=== PATIENT | male | born 1950 | race Caucasian/White ===

== ENCOUNTER → 2020-03-24 13:51 | Outpatient (BNVA) | payer MEDICARE, MEDICAID, SELFPAY | PROVIDERS: Family Provider Internal Medicine; PCP Internal Medicine; Visit Provider Surgery | DX: Z11.59 Encounter for screening for other viral diseases (principal); Z12.11 Encounter for screening for malignant neoplasm of colon | CPT/HCPCS: 87635 ==

== ENCOUNTER 2020-04-01 09:32 | Day surgery (SDC) | payer MEDICARE, MEDICAID, SELFPAY ==
[2020-03-31 09:32] VITALS: BMI 31.4
--- NOTE | 2020-04-01 10:08 | P.HP_ITS ---
Same Day Surgery H&P Indication for Procedure/HPI DATE OF PROCEDURE: April 01, 2020 CHIEF COMPLAINT/INDICATIONFOR SURGICAL PROCEDURE: sreening PREOP DIAGNOSIS: screening PLANNED PROCEDRUE: Operation Date: 04/01/20 10:45 Proposed Procedures p Colonoscopy 84402 z12.11(Not Applicable) - Tello Schmitt MD Medications/Allergies* Home Medications Medication Instructions Recorded Confirmed Type cyclobenzaprine 10 mg tablet 10 mg PO TID PRN 03/06/20 03/31/20 History cyclosporine 0.05 % eye drops in a 1 drop OPHTHALMIC (EYE) Q12H PRN 03/06/20 03/31/20 History dropperette gabapentin 300 mg capsule 300 mg PO TID 03/06/20 03/31/20 History hydrochlorothiazide 25 mg tablet 25 mg PO DAILY 03/06/20 03/31/20 History hydrocodone 5 mg-acetaminophen 325 1 tab PO Q8H PRN 03/06/20 03/31/20 History mg tablet ibuprofen 800 mg tablet 800 mg PO TID PRN 03/06/20 03/31/20 History lisinopril 20 mg tablet 20 mg PO DAILY 03/06/20 03/31/20 History melatonin 10 mg capsule 10 mg PO DAILY cap 03/06/20 03/31/20 History multivitamin 2 tab PO BID tab 03/06/20 03/31/20 History psyllium husk 0.52 gram capsule 0.52 gm PO DAILY 03/06/20 03/31/20 History sildenafil 100 mg tablet 25 mg PO DAILY PRN tab 03/06/20 03/31/20 History Allergies/Adverse Reactions Allergy/AdvReac Type Severity Reaction Status Date / Time No Known Allergies Allergy Verified 03/06/20 13:54 Pertinent History/Comorbid Conditions* Medical History (Updated 04/01/20 @ 10:08 by Tello Schmitt MD) Erectile dysfunction HTN (hypertension), benign Pertinent Exam Findings alert, oriented x 3 and regular rate & rhythm Recommendations Surgery/Procedure today Coding Level of Care Code Acute Point Of Care Specialist for Julian Tello
[2020-04-01] MEDS: sodium chloride 0.9% 1,000 ML 30 ML IV (10:24)
[2020-04-01 10:30] VITALS: BP 134/80; PULSE 101; RESP 18; TEMP 36.7; O2SAT 95
--- NOTE | 2020-04-01 10:31 | PC.NURSE ---
PT STATES HE SMOKED POT AT [address] FONTANA NOTIFIED.
--- NOTE | 2020-04-01 10:33 | ANES.PREANE2 ---
Pre-Anesthetic Assessment Pre-Anesthetic Assessment: Height/Weight: Height 1.68 m Weight 88.451 kg Temp Pulse Resp BP Pulse Ox 98.1 F 101 H 18 134/80 95 04/01/20 10:30 04/01/20 10:30 04/01/20 10:30 04/01/20 10:30 04/01/20 10:30 Preop Diagnosis: screening Proposed Procedure: Operation Date: 04/01/20 10:45 Proposed Procedures p Colonoscopy 65725 z12.11(Not Applicable) - Tello Schmitt MD Last intake: Intake Last Liquid Date 03/31/20 Last Liquid Time 21:00 Last Solid Date 03/30/20 Last Solid Time 23:59 Social: Social History: Alcohol and No tobacco Comment: +THC Airway: Submandibular: WNL Cervical ROM: WNL MP: 2 Dentition: False History/ROS: No significant history except as noted and No significant complaints Pulmonary: Pulmonary: None reported CV/HEM: CV/HEM: HTN : : None reported Hepatic: Hepatic: Hepatitis GI: GI: GERD Musc/skel: Musc/skel: OA/DJD Neuropsych: Neuropsych: Anxiety Anesthetic Plan: ASA status: 2 Anesthesia: Anesthesia Evaluation and MAC Risk of > 500 ml blood loss (7ml/kg in children): No Meds/Allergies Current Medications: Current Medications Generic Name Dose Route Start Last Admin Trade Name Freq PRN Reason Stop Dose Admin Sodium Chloride 1,000 mls @ 30 ml s/hr 04/01/20 10:00 04/01/20 10:24 Sodium Chloride 0.9% IV 04/02/20 09:59 30 mls/hr .Q24H WILL Administration PFSH Anesthesia PFSH: Medical History (Updated 04/01/20 @ 10:08 by Tello Schmitt MD) Erectile dysfunction HTN (hypertension), benign Data Anesthesia Cardiac Studies: No Data to Display
[2020-04-01 13:28] VITALS: BP 85/67; PULSE 96; RESP 18; TEMP 36.8; O2SAT 93
[2020-04-01 13:43] VITALS: BP 106/75; PULSE 90; RESP 18; O2SAT 92
--- NOTE | 2020-04-01 14:28 | ANE.PACU2 ---
Inpatient post-anesthesia follow up: Airway intact: Yes Vital signs: Temperature 98.3 F Pulse Rate 90 Respiratory Rate 18 Blood Pressure 106/75 Pulse Oximetry 92 Oxygen Delivery Me thod Room Air Oxygen Flow Rate 2 Fraction of Inspir ed Oxygen Hydration adequate: Yes Nausea and vomiting: No Pain level: 1 Mental status: Baseline
== END 2020-04-01 13:52 | disposition home or self-care (01) ==
PROVIDERS: PCP Internal Medicine; Visit Provider Surgery
PROC: 0DJD8ZZ Inspection of Lower Intestinal Tract, Via Natural or Artificial Opening Endoscopic (ICD-10-PCS; CPT 45378; principal; 2020-04-01 10:45)
DX: Z12.11 Encounter for screening for malignant neoplasm of colon (principal); K57.30 Diverticulosis of large intestine without perforation or abscess without bleeding; I10 Essential (primary) hypertension; K75.9 Inflammatory liver disease, unspecified; M19.90 Unspecified osteoarthritis, unspecified site; Z79.1 Long term (current) use of non-steroidal anti-inflammatories (NSAID); Z79.891 Long term (current) use of opiate analgesic
CPT/HCPCS: 12345; G0121; J2704; J7030

== ENCOUNTER 2020-09-17 06:00 | Outpatient (RCR) | payer MEDICARE, SELFPAY | END 2020-10-13 23:59 | disposition home or self-care (01) | LOC: GPT 06:00 | PROVIDERS: PCP Internal Medicine; Referring Provider Physician Assistant; Visit Provider Physician Assistant | DX: Z47.1 Aftercare following joint replacement surgery (principal); Z96.611 Presence of right artificial shoulder joint | CPT/HCPCS: 81003; 97032; 97110; 97140; 97161; 97530 ==

== ENCOUNTER 2020-10-14 06:00 | Outpatient (RCR) | payer MEDICARE, MEDICAID, SELFPAY | END 2020-11-12 23:59 | disposition home or self-care (01) | LOC: GPT 06:00 | PROVIDERS: PCP Internal Medicine; Referring Provider Physician Assistant; Visit Provider Physician Assistant | DX: Z47.1 Aftercare following joint replacement surgery (principal); Z96.611 Presence of right artificial shoulder joint | CPT/HCPCS: 97032; 97110; 97140; 97164; 97530 ==

== ENCOUNTER 2020-11-13 06:00 | Outpatient (RCR) | payer MEDICARE, MEDICAID, SELFPAY | END 2020-12-13 23:59 | disposition home or self-care (01) | LOC: GPT 06:00 | PROVIDERS: PCP Internal Medicine; Referring Provider Physician Assistant; Visit Provider Physician Assistant | DX: Z47.1 Aftercare following joint replacement surgery (principal); Z96.611 Presence of right artificial shoulder joint | CPT/HCPCS: 97032; 97110 ==

== ENCOUNTER → 2021-03-17 14:58 | Outpatient (BNVA) | payer MEDICARE, MEDICAID, SELFPAY | PROVIDERS: PCP Internal Medicine; Visit Provider Nurse Practitioner Family | DX: R59.1 Generalized enlarged lymph nodes (principal) | CPT/HCPCS: 85025; 86308 ==

== ENCOUNTER → 2021-03-23 15:58 | Outpatient (BNVA) | payer MEDICARE, MEDICAID, SELFPAY | PROVIDERS: PCP Internal Medicine; Visit Provider Nurse Practitioner Family | DX: R59.1 Generalized enlarged lymph nodes (principal) | CPT/HCPCS: 86735 ==

== ENCOUNTER → 2021-04-22 09:16 | Outpatient (BNVA) | payer MEDICARE, MEDICAID, SELFPAY | PROVIDERS: PCP Internal Medicine; Visit Provider Family Medicine | DX: K11.8 Other diseases of salivary glands (principal) | CPT/HCPCS: 85651; 86038; 86235 ==

== ENCOUNTER 2021-05-07 09:24 | Outpatient (CLI) | payer MEDICARE, MEDICAID, SELFPAY ==
--- NOTE | 2021-05-07 09:30 | XR_ITS ---
WS: [id number] HIPS BILATERAL TECHNIQUE: 4 views, AP and lateral CLINICAL INFORMATION: PRIMARY OSTEOARTHRITIS RIGHT HIP AND LEFT HIP COMPARISON: None. FINDINGS: Mild degenerative arthritis left hip with joint space narrowing. Normal visualized left pubic rami. V ascular calcification. No acute fractures. Mild degenerative narrowing right hip. Normal visualized right pubic rami. No acute fractures. XR/XR hip BI 3-4V wo/w pel [id number] IMPRESSION: Mild degenerative arthritis both hips with joint space narrowing. No acute frac tures. Tonnis classification LEFT: grade 1: sclerosis of femoral head and acetabulum o r slight joint space narrowing or slight lippig at joint margins Tonnis classification RIGHT: grade 1: sclerosis of femoral head and acetabulum or slight joint space narrowing or slight lippig at joint margins
== END 2021-05-07 09:25 | disposition home or self-care (01) ==
PROVIDERS: PCP Internal Medicine; Visit Provider Nurse Practitioner Family
DX: M16.11 Unilateral primary osteoarthritis, right hip (principal); M16.12 Unilateral primary osteoarthritis, left hip
CPT/HCPCS: 73522

== ENCOUNTER 2021-05-27 10:53 | Outpatient (CLI) | payer MEDICARE, MEDICAID, SELFPAY ==
--- NOTE | 2021-05-27 11:25 | CT_ITS ---
WS: [id number] CT NECK WITH CONTRAST HISTORY: Mass of both parotid glands TECHNIQUE: Contiguous 5 mm axial images are performed through the neck with intravenous contrast. Sag ittal and coronal reformats are also submitted. All CT scans at [facility] [place] use at least one o f these dose optimization techniques: automated exposure control; mA and/or kV adjustment per patient size (includes targeted exams where dose is matched to clinical indication); or iterative reconstruc tion. CONTRAST: CONTRAST: Omnipaque 300; 95 mL IV. DLP: 1170.91 mGycm COMPARISON: None available. Nasopharynx, oropharynx, hypopharynx and larynx are unremarkable. No soft tissue masses or abnormal e nhancement. Torus tubarius and fossa of Rosenmuller and parapharyngeal fat are normal. No significant lymphadenopathy is identified. Parotid glands are symmetric bilaterally. No masses are identified. Palpable markers are placed over the anterior superficial parotid gland. Parotid glands are prominent but there is no inflammatory nicki nge. The parotid ducts are normal. Washington's ducts are free of stones. Submandibular glands are lisy l. Small bilateral thyroid nodules. The largest on the RIGHT measures 7 mm. Degenerative disc disease and straightening of the normal cervical lordosis. Severe disc space narrow ing at C3-4 and C5-6 and C6-7. Visualized portions of the skull base demonstrate no abnormalities. Orbits and globes are within norm al limits. No soft tissue masses. Visualized paranasal sinuses and mastoid air cells are normal. Dependent changes in the lung apices. Reverse RIGHT shoulder replacement. CT/CT neck w con* [id number] IMPRESSION: 1. Parotid glands are prominent but no masses are identified. No adjacent infl ammatory changes. No adenopathy. 2. Parotid ducts are normal with no stone or obstruction. 3. No adenopathy.
[2021-05-27 11:54] LABS: Blood Urea Nitrogen 22 mg/dL (8-23)
[2021-05-27] MEDS: iohexol 300 mg/mL 100 mL Btl IV (14:49)
== END 2021-05-27 10:54 | disposition home or self-care (01) ==
PROVIDERS: PCP Internal Medicine; Visit Provider Otolaryngology
DX: K11.8 Other diseases of salivary glands (principal)
CPT/HCPCS: 70491; 82565; 84520; Q9967

== ENCOUNTER → 2021-07-03 11:23 | Outpatient (BNVA) | payer MEDICARE, MEDICAID, SELFPAY | PROVIDERS: PCP Internal Medicine; Visit Provider Otolaryngology | DX: Z20.822 Contact with and (suspected) exposure to COVID-19 (principal) | CPT/HCPCS: 87635 ==

== ENCOUNTER → 2021-07-13 08:42 | Outpatient (BNVA) | payer MEDICARE, MEDICAID, SELFPAY | PROVIDERS: PCP Internal Medicine; Visit Provider Nurse Practitioner Family | DX: Z20.822 Contact with and (suspected) exposure to COVID-19 (principal); R09.81 Nasal congestion; H66.92 Otitis media, unspecified, left ear | CPT/HCPCS: 87635 ==

== ENCOUNTER → 2021-07-20 09:10 | Outpatient (BNVA) | payer MEDICARE, MEDICAID, SELFPAY | PROVIDERS: PCP Internal Medicine; Visit Provider Otolaryngology | DX: Z20.822 Contact with and (suspected) exposure to COVID-19 (principal) | CPT/HCPCS: 87635 ==

== ENCOUNTER → 2021-07-27 10:02 | Outpatient (BNVA) | payer MEDICARE, MEDICAID, SELFPAY | PROVIDERS: PCP Internal Medicine; Visit Provider Otolaryngology | DX: Z20.822 Contact with and (suspected) exposure to COVID-19 (principal) | CPT/HCPCS: 87635 ==

== ENCOUNTER 2021-08-13 09:59 | Day surgery (SDC) | payer MEDICARE, MEDICAID, SELFPAY ==
[2021-08-13] VITALS (8 sets, daily range): BP systolic 125–160; BP diastolic 82–100; PULSE 85–99; RESP 14–18; TEMP 36.2–36.4; O2SAT 92–99; BMI 35.5
--- NOTE | 2021-08-13 12:22 | PC.NURSE ---
Rahat started by NANDA Ariza
[2021-08-13] MEDS: sodium chloride 0.9% 1,000 ML 30 ML IV (12:24)
--- NOTE | 2021-08-13 13:05 | ANES.PREANE2 ---
Pre-Anesthetic Assessment Height/Weight: Height 1.68 m Weight 99.79 kg Temp Pulse Resp BP Pulse Ox 97.6 F 85 17 160/98 92 08/13/21 10:23 08/13/21 10:23 08/13/21 10:23 08/13/21 10:23 08/13/21 10:23 Preop Diagnosis: Malignant left external ear skin lesion Operation Date: 08/13/21 11:45 Proposed Procedures p Excision of mal lesion for Left ext ear and repair 32661/C44.209mal terese of left ear(Not Applicable) - Judson Patricio MD Familial anesthetic complications: None Was Beta Ivon taken within 24 hours: N/A Was Clonidine taken within 24 hours: N/A Last intake: Intake Last Liquid Date 08/13/21 Last Liquid Time 00:00 Last Solid Date 08/13/21 Last Solid Time 00:00 Social Tobacco and No alcohol Exam alert, oriented x 3 and regular rate & rhythm Airway Submandibular: within normal limits Cervical ROM: Other (limited) Mallampati: Class III Dentition: false (upper) and partials (lower) Pulmonary Chronic Obstructive Pulmonary Disease CV/HEM Hypertension Hepatic Hepatitis (C) GI Gastroesophageal Reflux Disease Metabolic Morbid Obesity Anesthetic Plan ASA status: 3 Anesthesia: General Medications/Allergies Home Medications Medication Instructions Recorded Confirmed Last Taken Type cyclobenzaprine 10 mg tablet 10 mg PO TID PRN 03/06/20 08/13/21 07/30/21 History cyclosporine 0.05 % eye drops in a 1 drop OPHTHALMIC (EYE) Q12H PRN 03/06/20 08/13/21 Unknown History dropperette (Restasis) gabapentin 300 mg capsule 300 mg PO TID 03/06/20 08/13/21 08/12/21 History hydrocodone 5 mg-acetaminophen 325 1 tab PO Q8H PRN 03/06/20 08/13/21 08/11/21 History mg tablet ibuprofen 800 mg tablet 800 mg PO TID PRN 03/06/20 08/13/21 08/12/21 History multivitamin 2 tab PO BID tab 03/06/20 08/13/21 08/12/21 History psyllium husk 0.52 gram capsule 0.52 gm PO DAILY 03/06/20 08/13/21 08/11/21 History (Fiber (psyllium husk)) tadalafil 20 mg tablet 20 mg PO DAILY PRN #20 tab 09/03/20 08/13/21 08/11/21 Rx medical marijuana INHALATION 03/17/21 07/20/21 08/12/21 History lisinopril 20 mg tablet See Rx Instructions .ROUTE 06/23/21 08/13/21 08/12/21 Rx .COMPLEX #90 tab tamsulosin 0.4 mg capsule 0.4 mg PO DAILY 07/15/21 08/13/21 08/12/21 History Allergies Allergy/AdvReac Type Severity Reaction Status Date / Time No Known Allergies Allergy Verified 07/20/21 13:16 Current Medications Generic Name Dose Route Start Last Admin Trade Name Freq PRN Reason Stop Dose Admin Sodium Chloride 1,000 mls @ 30 mls/hr 08/13/21 10:30 08/13/21 12:24 Sodium Chloride 0.9% IV 08/14/21 10:29 30 mls/hr .Q24H WILL Administration PFSH Anesthesia Medical History Arthritis Erectile dysfunction due to diseases classified elsewhere HTN (hypertension), benign Urinary frequency Surgical History S/P appendectomy S/P tonsillectomy Status post colonoscopy (04/01/20) Family History Mother Cancer Breast Social History Smoking and tobacco status: light tobacco smoker Alcohol intake: current Alcohol intake frequency: few times a week Adopted: No Caregiver/support person: No Lives independently: Yes Marital status: Legally Current occupational status: unemployed Data Anesthesia Cardiac Studies: No Data to Display
--- NOTE | 2021-08-13 13:12 | W.PM.OPSUD ---
Surgery/Procedure H&P Update DATE OF PROCEDURE: August 13, 2021 DATE H&P PERFORMED: 07/20/21 H&P UPDATE INFORMATION: I have reviewed H&P completed within last 30 days, I have examined patient prior to procedure and No changes to prior documentation PREOP DIAGNOSIS: Malignant left external ear skin lesion PRIMARY INDICATION FOR PROCEDURE: Malignant lesion left external ear at the helical rim midportion of the ear. PLANNED PROCEDURE: Operation Date: 08/13/21 11:45 Proposed Procedures p Excision of mal lesion for Left ext ear and repair 94170/C44.209mal terese of left ear(Not Applicable) - Judson Patricio MD
[2021-08-13] MEDS: neomycin-poly-bacitracin oint 28 gm 1 APPLIC TOPICAL (13:59)
--- NOTE | 2021-08-13 14:13 | P.OP_ITS ---
Operative Report Date of procedure: August 13, 2021 Pre-op diagnosis: Preop Diagnosis Malignant left external ear skin lesion Post-op diagnosis: Basal cell carcinoma with margins clear Post-op findings: Wedge excision accomplished wounds and complex closure done. Procedure done: Wedge excision of left external ear helical rim basal cell carcinoma with complex repair Implants: No implants Specimens removed/disposition: Specimen was wedge excision of left helical rim malignancy. Pathology: Wedge excision left helical rim with lesion. Surgeon: Judson Patricio MD Anesthesia: General and Local Estimated blood loss: 20 mL Complications: No complications encountered Findings: Patient had a 1 cm by 8 mm raised exophytic lesion on left external helical rim. Brief History: 71-year-old male patient with a left external helical rim malignancy suspicious for basal cell carcinoma. He is being brought to the operating room at this time to undergo excision of this lesion with repair based on method of excision. The procedure its risks and complications were explained in detail. Risks included bleeding infection numbness scarring swelling bruising recurrence cosmetic change need for additional treatment and anesthetic risks. Informed consent was obtained and witnessed. Procedure: Description of procedure: The patient was placed on the operating table in the supine position. General LMA anesthesia was obtained. The patient was positioned with the left ear exposed. Patient received Ancef IV for prophylaxis. The area around the lesion was wiped with alcohol and allowed to dry. Then a total of 6.8 mL of 2% Xylocaine with 1-100,000 epinephrine was utilized to infiltrate in all directions superior inferior anterior and posterior around the lesion. Then the patient was prepped and draped in usual fashion. A timeout was accomplished identifying the patient date of plan procedure allergies fire risk and medications given. With all in agreement the procedure continued. A marking pen was used to outline a wedge excision pattern which was felt to leave the least cosmetic defect for this patient postoperatively. This was done excising a wedge that was 1.5 cm superior to inferior with the apex extending towards the antihelix. The incision was created through and through with a 15 blade. The superior aspect on the helical rim was marked with suture and sent for diagnosis and margins. While that was pending hemostasis was obtained with needle tip Bovie. Excess cartilage was excised to allow for direct closure of the wedge excision. Then with expec tation that the margins would be clear, the wound was closed with a running 5-0 nylon suture. Then pressure was applied for several minutes. Pathology returned as basal cell carcinoma with margins clear. The area was then cleansed. There was no sign of bleeding. Neosporin ointment was applied followed by a large sterile Band-Aid. Drapes were removed and the patient was returned to anesthesia for wake-up and transported to recovery. The patient tolerated the procedure well had an estimated blood loss of 20 mL and arrived in recovery in stable condition.
--- NOTE | 2021-08-13 15:19 | ANE.PACU2 ---
Inpatient post-anesthesia follow up: Airway intact: Yes Vital signs: Temperature 97.5 F Pulse Rate 96 Respiratory Rate 18 Blood Pressure 140/94 Pulse Oximetry 94 Oxygen Delivery Me thod Room Air Oxygen Flow Rate 6 Fraction of Inspir ed Oxygen Hydration adequate: Yes Nausea and vomiting: No Pain level: 1 Mental status: Baseline
== END 2021-08-13 15:27 | disposition home or self-care (01) ==
PROVIDERS: PCP Internal Medicine; Visit Provider Otolaryngology
PROC: (CPT 11641; principal; 2021-08-13 11:45)
DX: C44.209 Unspecified malignant neoplasm of skin of left ear and external auricular canal (principal); J44.9 Chronic obstructive pulmonary disease, unspecified; E66.01 Morbid (severe) obesity due to excess calories; Z68.35 Body mass index [BMI] 35.0-35.9, adult; M19.90 Unspecified osteoarthritis, unspecified site; I10 Essential (primary) hypertension; F17.210 Nicotine dependence, cigarettes, uncomplicated
CPT/HCPCS: 11641; 88304; 88309; 88331; J0690; J1100; J2370; J2405; J2704; J3010; J7030

== ENCOUNTER → 2021-12-21 11:22 | Outpatient (BNVA) | payer MEDICARE, MEDICAID, SELFPAY | PROVIDERS: PCP Internal Medicine; Visit Provider Nurse Practitioner Family | DX: R50.9 Fever, unspecified (principal) | CPT/HCPCS: 87426 ==

== ENCOUNTER → 2021-12-24 07:56 | Outpatient (BNVA) | payer MEDICARE, MEDICAID, SELFPAY | PROVIDERS: PCP Internal Medicine; Visit Provider Urology | DX: N40.1 Benign prostatic hyperplasia with lower urinary tract symptoms (principal); N52.1 Erectile dysfunction due to diseases classified elsewhere | CPT/HCPCS: 51798; 99213 ==

== ENCOUNTER → 2022-02-15 09:03 | Outpatient (BNVA) | payer MEDICARE, MEDICAID, SELFPAY | PROVIDERS: PCP Internal Medicine; Visit Provider Nurse Practitioner Family | DX: I10 Essential (primary) hypertension (principal) | CPT/HCPCS: 80053; 80061; 84443 ==

== ENCOUNTER → 2022-07-05 14:56 | Outpatient (BNVA) | payer MEDICARE, MEDICAID, SELFPAY | PROVIDERS: PCP Nurse Practitioner Family; Visit Provider Nurse Practitioner Family | DX: R06.2 Wheezing (principal); R05.9 Cough, unspecified | CPT/HCPCS: 71046 ==

== ENCOUNTER → 2022-07-13 14:38 | Outpatient (BNVA) | payer MEDICARE, MEDICAID, SELFPAY | PROVIDERS: PCP Nurse Practitioner Family; Visit Provider Podiatrist Foot & Ankle Surgery | DX: G57.62 Lesion of plantar nerve, left lower limb (principal) | CPT/HCPCS: 64455; 73630; 99203 ==

== ENCOUNTER → 2022-08-31 14:19 | Outpatient (BNVA) | payer MEDICARE, MEDICAID, SELFPAY | PROVIDERS: PCP Nurse Practitioner Family; Visit Provider Podiatrist Foot & Ankle Surgery | DX: G57.62 Lesion of plantar nerve, left lower limb (principal) | CPT/HCPCS: 99213 ==

== ENCOUNTER → 2023-05-25 13:17 | Outpatient (BNVA) | payer MEDICARE, MEDICAID, SELFPAY | PROVIDERS: PCP Nurse Practitioner Family; Visit Provider Nurse Practitioner Family | DX: R14.0 Abdominal distension (gaseous) (principal); N40.0 Benign prostatic hyperplasia without lower urinary tract symptoms | CPT/HCPCS: 74018 ==

== ENCOUNTER 2023-05-25 20:02 | Inpatient (IN) | payer MEDICARE, MEDICAID, SELFPAY ==
[2023-05-25 20:05] VITALS: BP 185/152; PULSE 144; RESP 18; TEMP 36.5; O2SAT 92; BMI 35.2
--- NOTE | 2023-05-25 20:23 | XRR_ITS ---
PROCEDURE INFORMATION: Exam: XR Chest Exam date and time: 05/25/2023 9:19 PM Age: 73 years old Clinical indication: Other: Palpitations TECHNIQUE: Imaging protocol: Radiologic exam of the chest. Views: 1 view. COMPARISON: CR XR chest 2V* [id number] 07/05/2022 3:09 PM FINDINGS: Lungs: Stable left calcified hilar nodes and/or mediastinal nodes and/or lung nodules consistent with old granulomatous disease. Pleural spaces: Unremarkable. No pleural effusion. No pneumothorax. Heart/Mediastinum: Borderline to mild cardiomegaly. Bones/joints: Stable total right shoulder replacement. Soft tissues: Examination is limited secondary to body habitus. XR/XR chest 1V portable [id number] IMPRESSION: Borderline to mild cardiomegaly.
--- NOTE | 2023-05-25 20:24 | ECG_ITS ---
[facility] Test Date: 2023-05-25 Pat Name: Bernard Cavanaugh Department: Room: EDIP Gender: Male Frame Trimmer: : 1950 Requested By: Jeramie Dorman Order Number: [id number] Nathalie MD: Jl Jacobs M.D. Measurements Intervals [place] Rate: 128 P: 0 [place]: 0 QRS: -17 QRSD: 88 T: 95 QT: 305 QTc: 445 Interpretive Statements ATRIAL FIBRILLATION WITH RAPID VENTRICULAR RESPONSE WITH ABERRANT CONDUCTION OR VENTRICULAR PREMATURE COMPLEXES MINIMAL VOLTAGE CRITERIA FOR LVH, CONSIDER NORMAL VARIANT [MEETS CRITERIA IN ONE OF: R(aVL), S(V1), R(V5), R(V5/V6)+S(V1)] NONSPECIFIC T-WAVE ABNORMALITY No previous ECG available for comparison Electronically Signed On 05-26-2023 21:47:10 INSTRUMENT REPAIRER by Jl Jacobs M.D. [email or web address]
[2023-05-25 20:42] LABS: Basophils % 0.4 %; Eosinophils # 0.1 10^3/uL (0.0-0.8); Hematocrit 47.2 % (37-53); Lymphocytes # 1.1 10^3/uL (0.8-4.8); Lymphocytes % 11.2 %; Mean Corpuscular HGB Conc 32.2 g/dL (30-55); Mean Corpuscular Hemoglobin 27.5 pg (27-33); Mean Corpuscular Volume 85.4 fl (82-101); Mean Platelet Volume 9.9 fL (7.4-10.4); Monocytes # 0.9 10^3/uL (0.2-0.9); Monocytes % 8.8 %; Neutrophils # 7.82 10^3/uL (1.8-7.7); Neutrophils % 78.4 %; Nucleated Red Blood Cells % 0 %; Platelet Count 264 10^3/cmm (157-399); Red Blood Count 5.53 10^6/uL (3.85-5.65); Red Cell Distribution Width 14.6 % (12.1-15.1); White Blood Count 9.98 10^3/uL (3.29-11.43)
[2023-05-25 20:51] LABS: INR 1.22 (0.8-1.2)
[2023-05-25 20:57] LABS: Troponin(5th) Baseline 39 ng/L (0-15)
[2023-05-25] MEDS: dilTIAZem 5 mg/mL SDV 5 mL 20 MG IVP (20:58)
[2023-05-25 21:00] VITALS: BP 156/128; PULSE 119; RESP 20; O2SAT 90
[2023-05-25 21:07] LABS: Alanine Aminotransferase 16 U/L (0-41); Albumin Level 4.2 g/dL (3.5-5.2); Alkaline Phosphatase 97 U/L (40-130); Anion Gap 16.6 (5-19); Aspartate Amino Transferase 22 U/L (0-40); Blood Urea Nitrogen 20 mg/dL (8-23); Calcium 9.4 mg/dL (8.5-10.5); Carbon Dioxide 23 mmol/L (22-29); Chloride 105 mmol/L (98-107); Globulin 2.9 g/dL (1.3-4.6); Glucose 90 mg/dL (65-115); NT Pro B Type Natriuretic Pept 3144 pg/mL (0-125); Osmolality Calculated 292 mOsm/kg (285-295); Potassium 4.6 mmol/L (3.5-5.1); Sodium 140 mmol/L (136-145); Total Bilirubin 0.8 mg/dL (0.15-1.2); Total Protein 7.1 g/dL (6.6-8.7)
[2023-05-25 21:19] LABS: Partial Thromboplastin Time 26.5 SECONDS (23.9-36.7)
--- NOTE | 2023-05-25 22:24 | ECG_ITS ---
[facility] Test Date: 2023-05-25 Pat Name: Bernard Cavanaugh Department: Room: Gender: Male Direct Marketing Specialist: : 1950 Requested By: Jeramie Dorman Order Number: [id number] Nathalie MD: Jl Jacobs M.D. Measurements Intervals [place] Rate: 110 P: 0 [place]: 0 QRS: -13 QRSD: 90 T: 74 QT: 359 QTc: 487 Interpretive Statements ATRIAL FIBRILLATION WITH RAPID VENTRICULAR RESPONSE NONSPECIFIC ST & T-WAVE ABNORMALITY ABNORMAL RHYTHM ECG No previous ECG available for comparison Electronically Signed On 05-26-2023 21:50:44 MUSSEL OPENER by Jl Jacobs M.D. [email or web address]
--- NOTE | 2023-05-25 22:26 | ED_ITS ---
HPI - SOB/Dyspnea 2 General: Chief Complaint: Shortness of Breath/Dyspnea Stated Complaint: SOB Time Seen by Provider: 05/25/23 20:23 History of Present Illness: HPI Narrative: 73-year-old male presents emergency depa rtment via EMS personnel for complaints of feeling like he is having increased shortness of breath and having a rapid beating heart. He states approximately 2 months ago he was told he had atrial fibrillation. He states that he became more short of breath today he states he initially started feeling like his abdomen was bloated and he felt it he initially thought that that was the cause of his shortness of breath. He denies chest pain at present. But he does state that he is significantly winded with any exertion. Associated symptoms: Reports palpitations Review of Systems 2 General: Reports: 10 or more systems reviewed and unremarkable except in HPI and below Card: Reports: palpitations and irregular heart rhythm Resp: Reports: dyspnea and non-productive cough PFSH ED 2 PFSH: Medical History Urinary hesitancy Urinary frequency Erectile dysfunction due to diseases classified elsewhere Arthritis HTN (hypertension), benign Surgical History S/P tonsillectomy S/P appendectomy Status post colonoscopy (04/01/20) Family History Mother , at age 52 Cancer Breast Father , at age 82 No problems noted. Social History Smoking and tobacco/nicotine status: former use of tobacco/nicotine Alcohol intake: current Alcohol intake frequency: few times a week Substance/Drug Use: current Substance/Drug use frequency: few times a week Adopted: No Caregiver/support person: No Lives independently: Yes Marital status: Current occupational status: employed Current occupation: [employer] Physical Exam 2 Narrative: EXAM NARRATIVE: Constitutional: the patient appears well nourished and with normal development. Vital signs reviewed as documented. HENMT: Normocephalic, atraumatic. Extermal ears with normal appearance without drainage. Nose without drainage, normal appearance. Mucus membranes moist. Neck is supple, No jugular venous distension, trachea is midline, no appreciable carotid bruits. No lymphadenopathy. No meningeal signs. Flexion, extension and lateral rotation is without pain. Eyes: Pupils are equal, round, reactive to light and accommodation. No scleral icterus. Extra-ocular movement are intact. Thorax is symmetrical and with equal rise and fall with respirations. Resp: Lungs are clear to auscultation. No wheezes, rales, crackles or ronchi at present. Cardio: Irregularly irregular with rapid ventricular response. Positive S1, S2. No appreciable murmurs, rubs or gallops. GI: Abdominal exam reveals normal bowel sounds to all quadrants. No organomegaly. No obvious palpable masses noted. No hepatomegally appreciated. Soft, nontender to palpation. Extremity: Extremities are non-edematous and both femoral and pedal pulses are 2+ and equal bilaterally. Moves all extremities well, sensation in all extremities. Neuro: Alert and oriented x4, person, place, time and situation. Cranial nerves II through XII are grossly intact, there is no focal neurological deficits that I can appreciate at present. Motor strength in the upper and lower extremities are equal and bilateral 5/5. Psych: Cooperative, calm, normal thought process, appropriate judgment. Skin: No lesions, rashes. No gross abnormalities noted. Back: Symmetrical, no obvious deformity, No CVA tenderness Course 2 Vital Signs: Vital signs: Vital Signs Temperature 97.7 F 05/25/23 20:05 Pulse Rate 108 H 05/25/23 22:36 Respiratory Rate 20 H 05/25/23 21:00 Blood Pressure 156/128 05/25/23 21:00 Pulse Oximetry 92 05/25/23 22:36 Oxygen Delivery Me thod Nasal Cannula 05/25/23 22:36 Oxygen Flow Rate 2 05/25/23 21:00 MDM - SOB/Dyspnea Medical Decision Making Physical exam completed and documented, I will obtain serial cardiac enzymes, serial twelve-lead EKGs, chest x-ray, CBC, CMP, urinalysis, B-type natriuretic peptide, PT/PTT/INR, and a chest x-ray. I will review any pervious and pertinent medical records for assist in obtaining beneficial medical information to improved the care and treatment of the patient. I will reevaluate and consider hospitalist consultation and cardiology consultation. Medical Records I reviewed the patient's medical records. Lab Data I reviewed the patient's lab results. 05/25/23 20:30 05/25/23 20:30 Labs/Radiology: Radiology Impressions Chest X-Ray 05/25/23 20:23 IMPRESSION: Borderline to mild cardiomegaly. Laboratory Results WBC 9.98 10^3/uL (3.29-11.43) 05/25/23 20:30 RBC 5.53 10^6/uL (3.85-5.65) 05/25/23 20:30 Hgb 15.20 g/dL (11.27-16.99) 05/25/23 20:30 Hct 47.2 % (37-53) 05/25/23 20:30 MCV 85.4 fl (82-101) 05/25/23 20: MCH 27.5 pg (27-33) 05/25/23 20: MCHC 32.2 g/dL (30-55) 05/25/23 20: RDW 14.6 % (12.1-15.1) 05/25/23 20:30 Plt Count 264 10^3/cmm (157-399) 05/25/23 20:30 MPV 9.9 fL (7.4-10.4) 05/25/23 20:30 Neut % (Auto) 78.4 % 05/25/23 20: Lymph % (Auto) 11.2 % 05/25/23 20: Schuyler % (Auto) 8.8 % 05/25/23 20:30 Eos % (Auto) 1.0 % 05/25/23 20: Baso % (Auto) 0.4 % 05/25/23: Neut # (Auto) 7.82 10^3/uL (1.8-7.7) H 05/25/23 20:30 Lymph # (Auto) 1.1 10^3/uL (0.8-4.8) 05/25/23 20:30 Schuyler # (Auto) 0.9 10^3/uL (0.2-0.9) 05/25/23 20:30 Eos # (Auto) 0.1 10^3/uL (0.0-0.8) 05/25/23 20:30 Baso # (Auto) 0.0 10^3/uL (0.0-0.1) 05/25/23 20:30 Nucleated RBC % (auto) 0 % 05/25/23 20:30 Nucleated RBCs # 0.0 /100WBC 05/25/23 20:30 PT 15.80 SECONDS (12.1-14.9) H 05/25/23 20:30 INR 1.22 (0.8-1.2) H 05/25/23 20:30 APTT 26.5 SECONDS (23.9-36.7) 05/25/23 20:30 Sodium 140 mmol/L (136-145) 05/25/23 20:30 Potassium 4.6 mmol/L (3.5-5.1) 05/25/23 20:30 Chloride 105 mmol/L (98-107) 05/25/23 20:30 Carbon Dioxide 23 mmol/L (22-29) 05/25/23 20:30 Anion Gap 16.6 (5-19) 05/25/23 20:30 BUN 20 mg/dL (8-23) 05/25/23 20:30 Creatinine 0.9 mg/dL (0.7-1.2) 05/25/23 20:30 GFR Calculation Not Reportable 05/25/23 20:30 Glucose 90 mg/dL (65-115) 05/25/23 20:30 Calculated Osmolality 292 mOsm/kg (285-295) 05/25/23 20:30 Calcium 9.4 mg/dL (8.5-10.5) 05/25/23 20:30 Total Bilirubin 0.8 mg/dL (0.15-1.2) 05/25/23 20:30 AST 22 U/L (0-40) 05/25/23 20:30 ALT 16 U/L (0-41) 05/25/23 20:30 Alkaline Phosphatase 97 U/L (40-130) 05/25/23 20:30 Troponin T Baseline 39 ng/L (0-15) H 05/25/23 20:30 Troponin T 120 Minute 30.29 ng/L (0-15) H 05/25/23 22:18 Delta Troponin T -8.71 ABS# (0-10) L 05/25/23 22:18 NT-Pro-B Natriuret Pep 3144 pg/mL (0-125) H 05/25/23 20:30 Total Protein 7.1 g/dL (6.6-8.7) 05/25/23 20:30 Albumin 4.2 g/dL (3.5-5.2) 05/25/23 20:30 Globulin 2.9 g/dL (1.3-4.6) 05/25/23 20:30 All radiology interpretation(s) finalized by discharge EKG Data EKG 1: Interpretation: Twelve-lead EKG obtained at 2023 reviewed at 2025 demonstrates atrial fibrillation with a rapid ventricular response with a ventricular rate of 128 bpm, QRS duration 88, QT 305, QTc 381, there is significant motion artifact noted. At present there is no ST elevation or depression to demonstrate acute ischemia or infarction. EKG 2: Interpretation: Twelve-lead EKG obtained at 2304 and reviewed at 2304 demonstrates atrial fibrillation with improved ventricular rate of 110 bpm, QRS duration 90, QT 359, QTc 424. At present there is no ST elevation or depression to demonstrate acute ischemia or infarction. Critical Care Time 2 Critical Care Time: Critical Care Time: Yes Total Critical Care Time: 55 Attestation: The patients was emergently evaluated as this patient's presentation and case had a high probability of a clinically significant, sudden, or life threatening deterioration of this patient's initial critical presentation or condition which required my full and direct attention, intervention and personal management. Discharge Plan Discharge Patient Disposition: Admitted As Inpatient Clinical Impression: Atrial fibrillation with rapid ventricular response, Acute dyspnea Condition: Stable Coding Level of Care Code ED [place] Repairer for Julian Tello
[2023-05-25 22:36] VITALS: PULSE 108; O2SAT 92
[2023-05-25 22:39] LABS: Troponin 5 2HR 30.29 ng/L (0-15)
[2023-05-25 22:40] LABS: Troponin 5 2HR Delta -8.71 ABS# (0-10)
[2023-05-25 23:21] VITALS: BP 180/115; PULSE 95; RESP 27; O2SAT 3
[2023-05-25 23:50] VITALS: PULSE 109; RESP 28
[2023-05-26] VITALS (88 sets, daily range): BP systolic 123–173; BP diastolic 74–132; PULSE 77–130; RESP 14–46; TEMP 36.9; O2SAT 21–95; BMI 33.9
[2023-05-26] MEDS: dilTIAZem 100 MG in sodium chloride 0.9% (add-van) 100 ML IV (00:12)
[2023-05-26] MEDS: acetaminophen 325 mg Tablet 650 MG PO ×2 (01:20→19:44)
--- NOTE | 2023-05-26 01:24 | PC.NURSE ---
PATIENT STATES THAT HE DRINKS APPROXIMATELY 1 PINT OF WHISKEY EVERY NIGHT TO HELP HIM SLEEP. DR MOSLEY NOTIFIED.
--- NOTE | 2023-05-26 02:24 | ECG_ITS ---
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 [email or web address] Therapeuticsmarion general [email or web address] health [id number] f
--- NOTE | 2023-05-26 02:41 | USCV_ITS ---
Mao Bernard Age: 73 Gender: M : 1950 Exam Date: 05/26/2023 04:04 Ordering Phys: Kelly Scmhitt MD Technologist: GURPREET [place] [facility] [place]: [place]B, new onset Atrial Fibrillation. No history of cardiac intervention per patient. BP: 158 / 122 HR: 99 Rhythm: Atrial fibrillation Technical Quality: Adequate MEASUREMENTS (Male / Female) Normal Values 2D ECHO LV Diastolic Diameter PLAX 3.8 cm 4.2 - 5.9 / 3.9 - 5.3 cm LV Systolic Diameter PLAX 3.1 cm IVS Diastolic Thickness 1.6 cm 0.6 - 1.0 / 0.6 - 0.9 cm IVS Systolic Thickness 1.7 cm LVPW Diastolic Thickness 1.7 cm 0.6 - 1.0 / 0.6 - 0.9 cm LVPW Systolic Thickness 1.3 cm LVOT Diameter 2.3 cm LV Ejection Fraction 2D Teich 29.7 % LV Ejection Fraction MOD 2C 30.7 % LV Ejection Fraction 2C AL 30.9 % LA Diameter 3.3 cm LA Width 4.1 cm LA Height 6.8 cm RA Width 4.1 cm RA Height 6.1 cm Aorta at Sinotubular Diameter 3.5 cm IVC Diameter 2.6 cm M-MODE Aortic Annulus Diameter 3.4 cm LA Ao Ratio MM 1.0 MV E Point Septal Separation 0.5 cm DOPPLER AV Peak Velocity 100.0 cm/s LVOT Peak Velocity 112.0 cm/s AV Area Cont Eq vti 4.1 cm squared AV Area Cont Eq pk 4.7 cm squared MV Peak Velocity 107.0 cm/s MV Area PHT 3.9 cm squared MV E' Velocity 56.0 cm/s Mitral E to MV E' Ratio 11.7 Mitral E to LV E' Lateral Ratio 9.1 Mitral E to LV E' Septal Ratio 16.5 TR Peak Velocity 315.0 cm/s TR Peak Gradient 39.7 mmHg TV Peak E Velocity 67.0 cm/s Right Atrial Pressure 15.0 mmHg Pulmonary Artery Systolic Pressu 54.7 mmHg PV Peak Velocity 75.0 cm/s RV Acceleration Time 0.1 s RV Ejection Time 0.3 s RV AcT/ET 0.2 FINDINGS Left Ventricle Mild concentric left-ventricular hypertrophy. LV ejection fraction around 45% (visual). Diffuse hypokinesia of the septum and anteroseptal segments.Grade I/IV diastolic dysfunction (abnormal relaxation filling pattern), normal to mildly elevated filling pressures. Right Ventricle The right ventricle is normal in size and function. Right Atrium The right atrium is normal in size. Left Atrium Mildly increased left atrial size. Mitral Valve Mild-moderate mitral valve regurgitation. Aortic Valve Trace aortic valve regurgitation. Tricuspid Valve Mild tricuspid valve regurgitation. Estimated pulmonary artery peak systolic pressure 55 mmHg Pulmonic Valve Structurally normal pulmonic valve without significant stenosis. There is no pulmonic regurgitation. Pericardium No pericardial effusion. Aorta Normal ascending aorta dimension. IVC Dilated IVC with decreased respiratory variation. CONCLUSIONS Mild concentric left-ventricular hypertrophy. LV ejection fraction around 45% (visual). Diffuse hypokinesia of the septum and anteroseptal segments. Grade I/IV diastolic dysfunction (abnormal relaxation filling pattern), normal to mildly elevated filling pressures. Mildly increased left atrial size. Mild-moderate mitral valve regurgitation. Mild tricuspid valve regurgitation. Moderate pulmonary hypertension with estimated pulmonary artery peak systolic pressure of 55 mmHg Dilated IVC with decreased respiratory variation. There is no pericardial effusion. No similar previous studies are available for comparison Dr Jl Jacobs MD [facility] (Electronically Signed) Final Date: 26 May 2023 09:05 S
--- NOTE | 2023-05-26 02:46 | CTR_ITS ---
PROCEDURE INFORMATION: Exam: CT Abdomen And Pelvis Without Contrast Exam date and time: 05/26/2023 3:04 AM Age: 73 years old Clinical indication: Constipation; Additional info: Abdominal pain, abdominal pain, constipation x 4 days, unable to pass TECHNIQUE: Imaging protocol: Computed tomography of the abdomen and pelvis without contrast. Radiation optimization: All CT scans at this facility use at least one of these dose optimization techniques: automated exposure control; mA and/or kV adjustment per patient size (includes targeted exams where dose is matched to clinical indication); or iterative reconstruction. COMPARISON: CR XR abdomen 1V* [id number] 05/25/2023 1:35 PM RADIATION DOSE METRICS: Total DLP (mGy-cm): 971.25 FINDINGS: Lungs: Mild COPD. A few minute calcified lung nodules are seen incidentally. Pjdbz-abjdfci-urvz-left areas of bibasilar atelectasis. Possible right basilar infiltrate. Pleural spaces: Very small right pleural effusion. Liver: Unremarkable. No discrete mass. Gallbladder and bile ducts: No calcified gallstones or biliary dilation identified. Pancreas: Unremarkable with no suspicious mass. No ductal dilation. Spleen: The spleen is not enlarged. No suspicious mass is noted. Adrenal glands: Normal. No mass. Kidneys and ureters: Small right renal cystic lesion measures 2 cm. Other minute cysts likely. No hydronephrosis. Small left upper renal possible dense lesion measures 1.3 cm. Advise ultrasound correlation. Minimal left nephrolithiasis. Stomach and bowel: Moderate sigmoid diverticulosis. No small bowel obstruction, abscess or free air. Appendix: No evidence of appendicitis. Intraperitoneal space: Minimal ascites. No abscess or free air. Vasculature: Advanced diffuse vascular calcification noted. Lymph nodes: No enlarged lymph nodes. Urinary bladder: There is moderate bladder distention. Reproductive: Very large prostate. Bones/joints: [id number] spine DJD. Soft tissues: No acute or suspicious finding noted. Small fat umbilical hernia. CT/CT abdomen pelvis wo con [id number] IMPRESSION: 1. No bowel obstruction or evidence of constipation. 2. Small right effusion with right lung base atelectasis, scarring, or developing airspace disease. 3. Mild diffuse 3rd spacing of fluid. 4. Large prostate with distended bladder. 5. Full details and other chronic/incidental above. Very small left renal probable hemorrhagic cyst. Consider outpatient ultrasound. COMMENTS: Consistent with the [place] [employer]'s Incidental Findings Committee white paper (J Am Cortes Radiol 2018): Any incidental renal lesion less than 1 cm or classified as too small to characterize, or any incidental cystic renal lesion characterized as simple-appearing, is likely benign. No follow-up imaging is recommended for these lesions per consensus recommendations based on imaging criteria.
--- NOTE | 2023-05-26 02:47 | PM.HP ---
Providers/Chief Complaint Admitting Physician: Kelly Schmitt MD Primary Care Provider: Cynthia Hartmann NP Chief Complaint: SOB History of Present Illness Bernard Cavanaugh is a 73 year old male with a past medical history of hypertension, COPD not typically on home oxygen, who presented to the emergency room today sent in by his PCP. Patient visited with his primary care provider earlier today due to 4 days of abdominal pain constipation and inability to pass flatus. He thought he had constipation and was having panic attack as a result of his abdominal discomfort. He stated that it was hard for him to breathe because of abdominal distention. He had palpitations. At his PCPs office he was found to have A-fib with RVR with a heart rate of 142 and was directed to come into the emergency room. Here he was found to be in A-fib RVR heart rate of 144. Patient states he is familiar with the term A-fib however unable to tell me if he was ever formally diagnosed with the same. He received Cardizem push 20 mg IV and has been started on a Cardizem infusion, currently at 10 mg/h. Heart rate is better controlled with these interventions. He is currently on 4 L/min supplemental O2, does not typically wear oxygen. Reports drinking alcohol daily, 1 pint of whiskey, last drink was yesterday. No history of alcohol withdrawal seizures. Review of Systems General: Reports: 10 or more systems reviewed and unremarkable except in HPI and below Const: Denies: fever(s), chills or body aches Eyes: Denies: change in vision, blurry vision or photophobia ENMT: Reports: hoarseness; Denies: throat pain, enlarged tonsils, odynophagia or nasal congestion Card: Denies: chest pain, palpitations, irregular heart rhythm, edema, swelling of feet/ankles, lightheadedness, pre-syncope, dyspnea on exertion or orthopnea Resp: Denies: dyspnea, productive cough, non-productive cough, wheezing, stridor, pain on inspiration, change in phlegm color, hemoptysis or chest congestion GI: Denies: abdominal pain, nausea, vomiting, hematemesis, coffee ground emesis, dysphagia, heartburn, diarrhea, constipation, GI cramping, change in stool character, hematochezia or melena : Denies: flank pain, dysuria, urinary frequency, urinary urgency, urinary hesitancy or hematuria Musc: Denies: neck pain, back pain, extremity pain, joint swelling, joint warmth or deformity Neuro: Denies: headache(s), numbness in extremities, weakness in extremities, sensory changes, difficulty walking, frequent falls, dizziness, vertigo, behavioral changes, Slurred speech present or seizure-like activity Psych: Denies: anxiety, depression, suicidal ideation or homicidal ideation Endo: Denies: polyuria, polydipsia, tired all the time, cold intolerance or hot flashes Zheng/Lymph: Denies: easy bruising or easy bleeding Medications/Allergies Home Medications Medication Instructions Recorded Confirmed Last Taken Type albuterol sulfate 90 mcg/actuation See Rx Instructions .Route 05/11/22 09/16/22 Unknown Rx aerosol inhaler .COMPLEX #8.5 grams gabapentin 400 mg capsule 400 mg PO TID #300 caps 06/28/22 05/25/23 Unknown Rx budesonide 160 mcg-glycopyr 9 2 inh inhalation BID #10.7 grams 07/05/22 05/25/23 Unknown Rx mcg-formot 4.8 mcg/actuation HFA inhaler (Breztri Aerosphere) lisinopril 20 mg tablet See Rx Instructions .Route 04/27/23 05/25/23 Unknown Rx .COMPLEX #90 tabs ibuprofen 800 mg tablet See Rx Instructions .Route 05/06/23 05/25/23 Unknown Rx .COMPLEX #60 tabs tamsulosin 0.4 mg capsule See Rx Instructions .Route 05/11/23 05/25/23 Unknown Rx .COMPLEX #90 caps Allergies Allergy/AdvReac Type Severity Reaction Status Date / Time No Known Allergies Allergy Verified 05/25/23 13:14 PFSH Acute PFSH: Medical History Urinary hesitancy Urinary frequency Erectile dysfunction due to diseases classified elsewhere Arthritis HTN (hypertension), benign Surgical History S/P tonsillectomy S/P appendectomy Status post colonoscopy (04/01/20) Family History Mother , at age 52 Cancer Breast Father , at age 82 No problems noted. Social History Smoking and tobacco/nicotine status: former use of tobacco/nicotine Alcohol intake: current Alcohol intake frequency: few times a week Substance/Drug Use: current Substance/Drug use frequency: few times a week Adopted: No Caregiver/support person: No Lives independently: Yes Marital status: Current occupational status: employed Current occupation: [email or web address] Vitals/I&O/Wt Last Vital Signs Temp 97.7 F 05/25/23 20:05 Pulse 86 05/26/23 02:41 Resp 22 H 05/26/23 02:30 BP 158/122 05/26/23 02:41 Pulse Ox 91 05/26/23 02:41 O2 Del Method Nasal Cannula 05/26/23 02:30 O2 Flow Rate 3 05/26/23 02:30 05/25/23 05/25/23 05/26/23 14:59 22:59 06:59 Intake Total 0 / 0 Balance 0 / 0 Weight last 48 hrs Weight 98.883 kg Physical Exam Narrative: General: No acute distress, AO x3 HEENT: PERRLA, pupils bilaterally equal and reactive, pallors not present Chest: Normal vesicular breath sounds, no added sounds, equal good air entry bilaterally CVS: S1-S2 regular, no murmurs, no tachycardia, no gallops, no rubs Abdomen: Soft, nontender, no organomegaly, bowel sounds present Neuro: No focal deficits, no facial deformity, AO x3, power 5/5 in all limbs Extremities: Bilateral lower extremity pitting edema Data 05/25/23 20:30 05/25/23 20:30 Other data: Radiology Impressions Chest X-Ray 05/25/23 20:23 IMPRESSION: Borderline to mild cardiomegaly. Laboratory Results WBC 9.98 10^3/uL (3.29-11.43) 05/25/23 20:30 RBC 5.53 10^6/uL (3.85-5.65) 05/25/23 20:30 Hgb 15.20 g/dL (11.27-16.99) 05/25/23 20:30 Hct 47.2 % (37-53) 05/25/23 20:30 MCV 85.4 fl (82-101) 05/25/23 20:30 MCH 27.5 pg (27-33) 05/25/23 20:30 MCHC 32.2 g/dL (30-55) 05/25/23 20:30 RDW 14.6 % (12.1-15.1) 05/25/23 20:30 Plt Count 264 10^3/cmm (157-399) 05/25/23 20:30 MPV 9.9 fL (7.4-10.4) 05/25/23 20:30 Neut % (Auto) 78.4 % 05/25/23 20:30 Lymph % (Auto) 11.2 % 05/25/23 20:30 [place] % (Auto) 8.8 % 05/25/23 20:30 Eos % (Auto) 1.0 % 05/25/23: Baso % (Auto) 0.4 % 05/25/23 20:30 Neut # (Auto) 7.82 10^3/uL (1.8-7.7) H 05/25/23 20:30 Lymph # (Auto) 1.1 10^3/uL (0.8-4.8) 05/25/23 20:30 [place] # (Auto) 0.9 10^3/uL (0.2-0.9) 05/25/23 20:30 Eos # (Auto) 0.1 10^3/uL (0.0-0.8) 05/25/23 20:30 Baso # (Auto) 0.0 10^3/uL (0.0-0.1) 05/25/23 20: Nucleated RBC % (auto) 0 % 05/25/23 20: Nucleated RBCs # 0.0 /100WBC 05/25/23 20:30 PT 15.80 SECONDS (12.1-14.9) H 05/25/23 20:30 INR 1.22 (0.8-1.2) H 05/25/23 20:30 APTT 26.5 SECONDS (23.9-36.7) 05/25/23 20:30 Sodium 140 mmol/L (136-145) 05/25/23 20:30 Potassium 4.6 mmol/L (3.5-5.1) 05/25/23 20:30 Chloride 105 mmol/L (98-107) 05/25/23 20:30 Carbon Dioxide 23 mmol/L (22-29) 05/25/23 20:30 Anion Gap 16.6 (5-19) 05/25/23 20:30 BUN 20 mg/dL (8-23) 05/25/23 20:30 Creatinine 0.9 mg/dL (0.7-1.2) 05/25/23 20:30 GFR Calculation Not Reportable 05/25/23 20:30 Glucose 90 mg/dL (65-115) 05/25/23 20:30 Calculated Osmolality 292 mOsm/kg (285-295) 05/25/23 20:30 Calcium 9.4 mg/dL (8.5-10.5) 05/25/23 20:30 Total Bilirubin 0.8 mg/dL (0.15-1.2) 05/25/23 20:30 AST 22 U/L (0-40) 05/25/23 20:30 ALT 16 U/L (0-41) 05/25/23 20:30 Alkaline Phosphatase 97 U/L (40-130) 05/25/23 20:30 Troponin T Baseline 39 ng/L (0-15) H 05/25/23 20:30 Troponin T 120 Minute 30.29 ng/L (0-15) H 05/25/23 22:18 Delta Troponin T -8.71 ABS# (0-10) L 05/25/23 22:18 NT-Pro-B Natriuret Pep 3144 pg/mL (0-125) H 05/25/23 20:30 Total Protein 7.1 g/dL (6.6-8.7) 05/25/23 20:30 Albumin 4.2 g/dL (3.5-5.2) 05/25/23 20:30 Globulin 2.9 g/dL (1.3-4.6) 05/25/23 20:30 A&P Assessment and plan (1) Atrial fibrillation with rapid ventricular response: Patient with a new diagnosis of A-fib with RVR presenting with palpitations and chest discomfort. Received Cardizem 20 mg IV push and is currently on Cardizem infusion. Start Cardizem 30 mg p.o. every 6 hours and attempt to wean down Cardizem drip. Echocardiogram to evaluate for underlying structural abnormalities. Cardiomegaly is noted on chest x-ray. No past history of known cardiac disease. Troponin series today with a baseline troponin of 39, 2 hours down to 30 with a negative delta of 8. Suspect mildly elevated troponins are related to CHF and arrhythmia. [id number] score of 3 (age 73, evidence of CHF on exam, hypertension), recommended anticoagulation for stroke prophylaxis. Start Eliquis 5 mg p.o. twice daily No history of major bleeding. Normal potassium, check magnesium. Check TSH (2) CHF (congestive heart failure): New diagnosis of congestive heart failure. Elevated BNP, bilateral lower extremity pitting edema with Rales on exam. Has a new oxygen requirement of 3 L/min today likely related to pulmonary edema. Lasix 40 mg IV push now. Further doses dependent on response to current dose and renal function. Unable to specify at this time if this is diastolic or systolic. This is acute CHF likely precipitated by A-fib with RVR. Echocardiogram ordered and pending. (3) Alcohol dependence: Drinks alcohol daily, reports 1 pint of whiskey every day. Monitor for signs of alcohol withdrawal. Start thiamine folic acid and multivitamin. Plan Abdominal pain and distention over the last 4 days. States he is unable to pass flatus. CT abdomen and pelvis ordered to evaluate for SBO versus ileus. This will additionally evaluate for any potential liver cirrhosis given that patient does a daily drinker. Noted to have mildly deranged INR. Add bowel regimen, declines suppository DVT prophylaxis: Eliquis 5 mg twice daily will suffice as DVT prophylaxis Full code Attestations Medical Necessity Statement*: Greater than 2 midnight stay is anticipated for new onset A-fib RVR, new CHF, current need for Cardizem infusion Coding Level of Care Code Acute Code for Chg Fwd High MDM includes number and complexity of problems actively addressed during encounter, amount and/or complexity of data reviewed/ordered and described risk of complication, morbidity or mortality of management as documented Diagnoses Atrial fibrillation with rapid ventricular response I48.91 CHF (congestive heart failure) I50.9 Alcohol dependence F10.20
[2023-05-26 02:53] LABS: Troponin 5 6HR 35.09 ng/L (0-15)
[2023-05-26 02:56] LABS: Troponin 5 6HR Delta -3.91 ng/L (0-12)
[2023-05-26 03:10] LABS: Magnesium 1.9 mg/dL (1.7-2.3); Thyroid Stimulating Hormone 0.81 uIU/mL (0.27-4.20)
[2023-05-26 03:12] LABS: Alcohol Level < 10 mg/dL (0-10)
[2023-05-26 03:12] LABS: D Dimer 1.87 ug/mLFEU (0-0.59)
[2023-05-26] MEDS: FUROsemide 10 mg/mL SDV 4mL 40 MG IVP ×2 (03:21→16:18)
[2023-05-26] MEDS: dilTIAZem 30 mg Tablet PO ×4 (03:21→19:33)
--- NOTE | 2023-05-26 04:34 | PC.NURSE ---
Dr Schmitt notified of patient's last charted BP. No new orders received at this time.
[2023-05-26] MEDS: pantoprazole DR 40 mg Tablet PO (08:49)
[2023-05-26] MEDS: folic acid 1 mg Tablet PO (08:49)
[2023-05-26] MEDS: thiamine 100 mg Tablet PO (08:49)
[2023-05-26] MEDS: apixaban 5 mg Tablet PO (08:50)
[2023-05-26] MEDS: multivitamin therapeutic Tablet 1 TAB PO (08:50)
[2023-05-26] MEDS: sennosides-docusate Tablet 1 TAB PO ×2 (08:50→19:32)
[2023-05-26] MEDS: ipratropium-albuterol 3 mL Neb INHALATION ×3 (09:12→20:15)
--- NOTE | 2023-05-26 11:23 | W.PM.EVENTAC ---
Event Note Event Note: New onset CHF and new onset A-fib Patient is endorsing to drinking 1 pint of alcohol on daily basis No history of alcohol cirrhosis of liver Patient lives with his girlfriend Echo is pending Clinical signs of fluid overload Abdominal distention Nontender Awake and alert Currently on 2 L New onset A-fib New onset CHF Continue Lasix Continue Eliquis CIWA protocol Cardizem drip to be weaned off I will transition him to p.o. regimen as well
--- NOTE | 2023-05-26 12:59 | P.CONIM_ITS ---
Providers/Reason For Consult 2 Consulting Physician/Specialty*: CECILIA Jacobs MD/cardiology Reason for Consult*: Atrial fibrillation/CHF/LV dysfunction Requesting Physician: Dr. Arguelles Attending Physician: Aravind Arguelles MD Primary Care Provider: Cynthai Hartmann NP History of Present Illness History of Present Illness Bernard Cavanaugh is a 73 year old male with a history of hypertension, COPD, smoking abuse and IV alcohol abuse he is present with complaints of progressive shortness of breath and bloating of the abdomen for the last 1 week. He been also noticing swelling of the lower extremities for the last 2 or 3 days. He was seen by the primary care provider initially and was found to be in atrial fibrillation with rapid ventricular rate. He was subsequently sent to the emergency room for further evaluation.. His heart rate was found to be in the 140s. He was started on IV Cardizem drip in the emergency room. His echocardiogram revealed LV ejection fraction around 45%. Cardiology consult is requested for further cardiac evaluation recommendations. 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 He took off from his work because of the progressive shortness of breath and abdominal discomfort for the last week or so. He did not have any chest pain or palpitations. No fever, chills or cough. No dizziness or syncopal episodes. He was somewhat constipated. He started noticing swelling of the lower extremities 3 days ago. Patient is a heavy alcoholic. He drinks a pint a day for the last more than 20 years. He used to smoke at least a pack a day for 32 years. He quit smoking in 1998. No other substance abuse. He lives with a girlfriend and has no children. He has no previous history for coronary disease, myocardial infarction or congestive heart failure. No history for any cardiac arrhythmia. Review of Systems 2 Narrative: CONSTITUTIONAL: No fever or chills. Shortness of breath as mentioned above EYES: No blurring of vision or other visual disturbances lately. ENT: No hoarseness of voice, auditory disturbances or sore throat. CARDIOVASCULAR: As mentioned above. RESPIRATORY: History of COPD/emphysema GASTROINTESTINAL: No hematemesis or melena. GENITOURINARY: No dysuria or hematuria. INTEGUMENTARY: No skin rashes or history of skin cancer. NEURO:? History of anxiety disorder PSYCHIATRIC: No history of psychosis or major depression. HEMATOLOGIC: No bleeding disorders or significant anemia. ENDOCRINE: No history of polyuria or polydipsia. MUSCULOSKELETAL: No recent joint pain or swelling. ALLERGY/IMMUNOLOGY: As mentioned above. Medications/Allergies Home Medications Medication Instructions Recorded Confirmed Last Taken Type gabapentin 400 mg capsule 400 mg PO TID #300 caps 06/28/22 05/26/23 05/25/23 Rx budesonide 160 mcg-glycopyr 9 2 inh inhalation BID #10.7 grams 07/05/22 05/26/23 05/25/23 Rx mcg-formot 4.8 mcg/actuation HFA inhaler (Breztri Aerosphere) albuterol sulfate 90 mcg/actuation 2 puff inhalation Q4H PRN 05/26/23 05/26/23 Unknown History aerosol inhaler Shortness Of Breath Or Wheezing ibuprofen 800 mg tablet 800 mg PO BID PRN Pain 05/26/23 05/26/23 05/25/23 History lisinopril 20 mg tablet 20 mg PO DAILY 05/26/23 05/26/23 05/25/23 History tamsulosin 0.4 mg capsule 0.4 mg PO DAILY 05/26/23 05/26/23 05/25/23 History Allergies Allergy/AdvReac Type Severity Reaction Status Date / Time No Known Allergies Allergy Verified 05/25/23 13:14 Current Medications Generic Name Dose Route Start Last Admin Trade Name Freq PRN Reason Stop Dose Admin Albuterol/Ipratropium 3 ml 05/26/23 02:45 05/26/23 09:12 Ipratropium-Albuterol 3 Ml Neb INHALATION 3 ml Q6H WILL Administration Diltiazem HCl 30 mg 05/26/23 02:45 05/26/23 08:49 Diltiazem 30 Mg Tablet PO 30 mg Q6H WILL Administration Folic Acid 1 mg 05/26/23 09:00 05/26/23 08:49 Folic Acid 1 Mg Tablet PO 1 mg DAILY WILL Administration Diltiazem HCl 100 mg/ Sodium 100 mls @ 0 mls/hr 05/25/23 22:30 05/26/23 05:46 Chloride IV 2.5 mg/hr .Q0M WILL 2.5 mls/hr Titration Protocol Per Protocol Multivitamins Therapeutic 1 tab 05/26/23 09:00 05/26/23 08:50 Multivitamin Therapeutic Tablet PO 1 tab DAILY WILL Administration Pantoprazole Sodium 40 mg 05/26/23 09:00 05/26/23 08:[address] 40 Mg Tablet PO 40 mg DAILY WILL Administration Senna/Docusate Sodium 1 tab 05/26/23 09:00 05/26/23 08:50 Sennosides-Docusate Tablet PO 1 tab BID WILL Administration Thiamine Mononitrate 100 mg 05/26/23 09:00 05/26/23 08:49 Thiamine 100 Mg Tablet PO 100 mg DAILY WILL Administration PFSH Acute 2 PFSH: Medical History Urinary hesitancy Urinary frequency Erectile dysfunction due to diseases classified elsewhere Arthritis HTN (hypertension), benign Surgical History S/P tonsillectomy S/P appendectomy Status post colonoscopy (04/01/20) Family History Mother , at age 52 Cancer Breast Father , at age 82 No problems noted. Social History Smoking and tobacco/nicotine status: former use of tobacco/nicotine Alcohol intake: current Alcohol intake frequency: few times a week Substance/Drug Use: current Substance/Drug use frequency: few times a week Adopted: No Caregiver/support person: No Lives independently: Yes Marital status: Current occupational status: employed Current occupation: [employer] Vitals/I&O/Wt Last Vital Signs Temp 97.7 F 05/25/23 20:05 Pulse 87 05/26/23 10:40 Resp 16 05/26/23 10:40 BP 123/85 05/26/23 10:40 Pulse Ox 92 05/26/23 10:40 O2 Del Method Room Air 05/26/23 10:40 O2 Flow Rate 4 05/26/23 09:12 05/25/23 05/26/23 05/26/23 22:59 06:59 14:59 Intake Total 37.916 / 37.916 Output Total 1100 / 1100 Balance -1062.084 / -1062.084 Weight last 48 hrs Weight 218 lb Physical Exam 2 Narrative: GENERAL: The patient is alert and oriented times three. Not in any acute distress. Slightly tachypneic HEENT: No significant pallor, icterus or lymphadenopathy.Oral cavity: There are no mucous membrane lesions. NECK: Trachea appears to be central. No masses noted. No JVD or thyromegaly appreciated. RESPIRATORY: Breath sounds are heard bilaterally. Scattered expiratory wheezing and some occasional crackles. Intensity of the breath sounds are diminished in the bases BREASTS: Deferred. HEART: The heart sounds are normal. No S3 or S4. Short systolic murmur at the base of the heart. No diastolic murmurs. No pericardial rub ABDOMEN: No vessel pulsations or distention. No tenderness. No organomegaly appreciated. Bowel sounds are normally heard. : Deferred. RECTAL: Deferred. LYMPHATIC: No lymphadenopathy noted in the neck. EXTREMITIES: N trace edema with no cyanosis. Good peripheral pulses. MUSCULOSKELETAL: No acute joint deformities or swelling SKIN: There are no significant rashes or ecchymosis NEUROPSYCHIATRIC: The patient is alert and oriented x3. Appears to be in a good mood. No tremors or rigidity noted. Data 05/25/23 20:30 05/25/23 20:30 Other Labs: Laboratory Last Values WBC 9.98 10^3/uL (3.29-11.43) 05/25/23 20: RBC 5.53 10^6/uL (3.85-5.65) 05/25/23 20:30 Hgb 15.20 g/dL (11.27-16.99) 05/25/23 20: Hct 47.2 % (37-53) 05/25/23 20: MCV 85.4 fl (82-101) 05/25/23 20:30 MCH 27.5 pg (27-33) 05/25/23 20: MCHC 32.2 g/dL (30-55) 05/25/23 20: RDW 14.6 % (12.1-15.1) 05/25/23 20: Plt Count 264 10^3/cmm (157-399) 05/25/23 20: MPV 9.9 fL (7.4-10.4) 05/25/23 20: Neut % (Auto) 78.4 % 05/25/23 20: Lymph % (Auto) 11.2 % 05/25/23 20:30 [place] % (Auto) 8.8 % 05/25/23 20:30 Eos % (Auto) 1.0 % 05/25/23 20:30 Baso % (Auto) 0.4 % 05/25/23 20:30 Neut # (Auto) 7.82 10^3/uL (1.8-7.7) H 05/25/23 20:30 Lymph # (Auto) 1.1 10^3/uL (0.8-4.8) 05/25/23 20:30 [place] # (Auto) 0.9 10^3/uL (0.2-0.9) 05/25/23 20:30 Eos # (Auto) 0.1 10^3/uL (0.0-0.8) 05/25/23 20:30 Baso # (Auto) 0.0 10^3/uL (0.0-0.1) 05/25/23 20:30 Nucleated RBC % (auto) 0 % 05/25/23 20:30 Nucleated RBCs # 0.0 /100WBC 05/25/23 20:30 PT 15.80 SECONDS (12.1-14.9) H 05/25/23 20:30 INR 1.22 (0.8-1.2) H 05/25/23 20:30 APTT 26.5 SECONDS (23.9-36.7) 05/25/23 20:30 D-Dimer 1.87 ug/mLFEU (0-0.59) H 05/25/23 20:30 Sodium 140 mmol/L (136-145) 05/25/23 20:30 Potassium 4.6 mmol/L (3.5-5.1) 05/25/23 20:30 Chloride 105 mmol/L (98-107) 05/25/23 20:30 Carbon Dioxide 23 mmol/L (22-29) 05/25/23 20:30 Anion Gap 16.6 (5-19) 05/25/23 20:30 BUN 20 mg/dL (8-23) 05/25/23 20:30 Creatinine 0.9 mg/dL (0.7-1.2) 05/25/23 20:30 GFR Calculation Not Reportable 05/25/23 20:30 Glucose 90 mg/dL (65-115) 05/25/23 20:30 Calculated Osmolality 292 mOsm/kg (285-295) 05/25/23 20:30 Calcium 9.4 mg/dL (8.5-10.5) 05/25/23 20:30 Magnesium 1.9 mg/dL (1.7-2.3) 05/26/23 02:20 Total Bilirubin 0.8 mg/dL (0.15-1.2) 05/25/23 20:30 AST 22 U/L (0-40) 05/25/23 20:30 ALT 16 U/L (0-41) 05/25/23 20:30 Alkaline Phosphatase 97 U/L (40-130) 05/25/23 20:30 Troponin T Baseline 39 ng/L (0-15) H 05/25/23 20:30 Troponin T 120 Minute 30.29 ng/L (0-15) H 05/25/23 22:18 Delta Troponin T -8.71 ABS# (0-10) L 05/25/23 22:18 Troponin T Hi Sens 6Hr 35.09 ng/L (0-15) H 05/26/23 02:20 Troponin T Hi Sens 6Hr Delta -3.91 ng/L (0-12) L 05/26/23 02:20 NT-Pro-B Natriuret Pep 3144 pg/mL (0-125) H 05/25/23 20:30 Total Protein 7.1 g/dL (6.6-8.7) 05/25/23 20:30 Albumin 4.2 g/dL (3.5-5.2) 05/25/23 20:30 Globulin 2.9 g/dL (1.3-4.6) 05/25/23 20:30 TSH 0.81 uIU/mL (0.27-4.20) 05/26/23 02:20 Ethyl Alcohol < 10 mg/dL (0-10) 05/26/23 02:20 EKG 1: My Interpretation: Atrial fibrillation with a ventricular response rate of 82 bpm. Voltage relative for LVH. No significant ST-T changes. Other data: Echocardiogram from today, 05/26/2023 Mild concentric left-ventricular hypertrophy. LV ejection fraction around 45% (visual). Diffuse hypokinesia of the septum and anteroseptal segments. Grade I/IV diastolic dysfunction (abnormal relaxation filling pattern), normal to mildly elevated filling pressures. Mildly increased left atrial size. Mild-moderate mitral valve regurgitation. Mild tricuspid valve regurgitation. Moderate pulmonary hypertension with estimated pulmonary artery peak systolic pressure of 55 mmHg Dilated IVC with decreased respiratory variation. There is no pericardial effusion. No similar previous studies are available for comparison Chest x-ray revealed Cardiomegaly, mild. Prominent pulmonary venous markings.. No lung infiltrates. CT of the abdomen 1. No bowel obstruction or evidence of constipation. 2. Small right effusion with right lung base atelectasis, scarring, or developing airspace disease. 3. Mild diffuse 3rd spacing of fluid. 4. Large prostate with distended bladder. 5. Full details and other chronic/incidental above. Very small left renal probable hemorrhagic cyst. Consider outpatient ultrasound. A&P Assessment and plan (1) Atrial fibrillation with rapid ventricular response: I may start the patient on metoprolol 25 mg p.o. twice daily. Gradually wean down on the Cardizem. (2) Cardiomyopathy: The etiology of the cardiomyopathy is not clear. Possibility of alcoholic cardiomyopathy/arrhythmia induced/ischemia are considerations. Once the heart failure is properly treated, we may consider doing a Myocardial perfusion imaging, we may consider doing a cardiac catheterization to further evaluate the coronary arteries. Qualifiers: Cardiomyopathy type: unspecified Qualified Code(s): I42.9 - Cardiomyopathy, unspecified (3) HTN (hypertension), benign: The blood pressure is elevated. I will start him on lisinopril 10 mg p.o. now and daily (4) CHF (congestive heart failure): Patient treated with IV diuretics. Also start him on spironolactone 25 mg p.o. daily. Qualifiers: Heart failure type: systolic Heart failure chronicity: acute on chronic Qualified Code(s): I50.23 - Acute on chronic systolic (congestive) heart failure (5) Alcohol dependence: Patient strongly advised to quit drinking Qualifiers: Substance use status: unspecified alcohol-induced disorder Qualified Code(s): F10.29 - Alcohol dependence with unspecified alcohol-induced disorder (6) COPD (chronic obstructive pulmonary disease): Management of the COPD as per the primary Qualifiers: COPD type: unspecified COPD Qualified Code(s): J44.9 - Chronic obstructive pulmonary disease, unspecified Plan Based on the patient clinical progress, further recommendations will be made. Consider doing a cardiac catheterization to evaluate for any coronary artery disease. May keep him n.p.o. after midnight Consult Attestations 2 Medical Necessity Statement: Patient requires continued hospital stay for close monitoring and further management Coding Level of Care Code 77688 Diagnoses Atrial fibrillation with rapid ventricular response I48.91 Cardiomyopathy, unspecified type I42.9 Cardiomyopathy type: unspecified HTN (hypertension), benign I10 Acute on chronic systolic congestive heart failure I50.23 Heart failure type: systolic Heart failure chronicity: acute on chronic Alcohol dependence with unspecified alcohol-induced disorder F10.29 Substance use status: unspecified alcohol-induced disorder Chronic obstructive pulmonary disease, unspecified COPD type J44.9 COPD type: unspecified COPD
[2023-05-26 16:56] LABS: Amphetamines Screen Urine Negative (Negative); Barbiturates Screen Urine Negative (Negative); Benzodiazepines Screen Urine Negative (Negative); Cocaine Screen Urine Negative (Negative); Opiate Screen Urine Negative (Negative); PCP Screen Urine Negative (Negative); THC Screen Urine Negative (Negative)
[2023-05-26] MEDS: enoxaparin 100 mg/mL Syringe SUBCUT (19:33)
[2023-05-26] MEDS: LORazepam 2 mg Tablet PO (19:43)
[2023-05-26] MEDS: spironolactone 25 mg Tablet PO (20:49)
[2023-05-26] MEDS: lisinopril 10 mg Tablet PO (20:50)
[2023-05-26] MEDS: metoprolol tartrate 25 mg Tablet PO (21:02)
[2023-05-27] VITALS (61 sets, daily range): BP systolic 91–184; BP diastolic 63–150; PULSE 75–107; RESP 17–68; TEMP 36.5–38; O2SAT 78–96; BMI 33.9
[2023-05-27] MEDS: dilTIAZem 100 MG in sodium chloride 0.9% (add-van) 100 ML 7.5 MG IV (00:27)
[2023-05-27] MEDS: LORazepam 2 mg/mL INJ 1 mL IVP (00:34)
[2023-05-27] MEDS: dilTIAZem 30 mg Tablet PO ×4 (03:44→20:27)
[2023-05-27 03:52] LABS: Basophils # 0.1 10^3/uL (0.0-0.1); Basophils % 0.4 %; Eosinophils # 0.1 10^3/uL (0.0-0.8); Eosinophils % 0.4 %; Hematocrit 49.8 % (37-53); Lymphocytes # 0.9 10^3/uL (0.8-4.8); Lymphocytes % 5.2 %; Mean Corpuscular HGB Conc 31.7 g/dL (30-55); Mean Corpuscular Hemoglobin 27.8 pg (27-33); Mean Corpuscular Volume 87.7 fl (82-101); Mean Platelet Volume 9.6 fL (7.4-10.4); Monocytes # 1.5 10^3/uL (0.2-0.9); Monocytes % 8.7 %; Neutrophils # 14.41 10^3/uL (1.8-7.7); Neutrophils % 84.9 %; Nucleated Red Blood Cells % 0 %; Platelet Count 267 10^3/cmm (157-399); Red Blood Count 5.68 10^6/uL (3.85-5.65); Red Cell Distribution Width 14.5 % (12.1-15.1); White Blood Count 16.99 10^3/uL (3.29-11.43)
[2023-05-27 04:14] LABS: Alanine Aminotransferase 17 U/L (0-41); Albumin Level 3.9 g/dL (3.5-5.2); Alkaline Phosphatase 94 U/L (40-130); Ammonia 81 umol/L (16-60); Anion Gap 14.9 (5-19); Aspartate Amino Transferase 24 U/L (0-40); Blood Urea Nitrogen 26 mg/dL (8-23); Calcium 9.3 mg/dL (8.5-10.5); Carbon Dioxide 27 mmol/L (22-29); Chloride 101 mmol/L (98-107); Globulin 3.4 g/dL (1.3-4.6); Glucose 122 mg/dL (65-115); Osmolality Calculated 294 mOsm/kg (285-295); Potassium 3.9 mmol/L (3.5-5.1); Sodium 139 mmol/L (136-145); Total Bilirubin 0.7 mg/dL (0.15-1.2); Total Protein 7.3 g/dL (6.6-8.7)
[2023-05-27] MEDS: ipratropium-albuterol 3 mL Neb INHALATION ×3 (08:03→19:58)
[2023-05-27 08:20] LABS: ABG PCO2 41.6 mmHg (35-45); ABG PH Result 7.46 (7.35-7.45); Alveolar-Arterial Oxygen Gradi 21.4 mmHg (5-10); Base Excess ABG 5.2 mmol/L (-2.0-2.0); Blood Gas Allen Test Pos; Blood Gas Operator Identificat MONRO; Blood Gas Sample Site Radial, left; Blood Gas Sample Type Arterial; HCO3 ABG 29.6 mmol/L (22-26); HGB O2 Sat 96.3 % (95-100); Ionized Calcium Level - ABG 1.2 mmol/L (1.1-1.4); Methemoglobin 0.2 % (0.4-1.5); Oxygen Device NC; Oxygen Saturation ABG 97.5; PO2 ABG 89.3 mmHg (80.0-100.0); PO2 FiO2 Ratio Arterial Blood 0; Potassium Level - ABG 3.4 mmol/L (3.5-5.0); Total Hemoglobin 15.7 g/dL (14-18)
[2023-05-27] MEDS: enoxaparin 100 mg/mL Syringe SUBCUT ×2 (09:09→20:27)
--- NOTE | 2023-05-27 09:09 | P.PN_ITS ---
Subjective 2 Subjective: Patient this morning was hypoxic on nasal cannula, I requested ABG we did not show an any hypercapnic episodes, he is hypoxic most likely has sleep apnea Will need sleep study outpatient Dr. Jacobs recommended coronary angiogram diagnostic I will keep him n.p.o. until I find out about today's plan Patient is not actively in pain or discomfort Drug screen negative Vitals/I&O/Wt Last Vital Signs Temp 100.4 F H 05/27/23 08:00 Pulse 86 05/27/23 08:03 Resp 24 H 05/27/23 08:03 BP 114/63 05/27/23 08:00 Pulse Ox 93 05/27/23 08:03 O2 Del Method Aerosol Mask 05/27/23 08:03 O2 Flow Rate 10 05/27/23 08:03 05/26/23 05/27/23 05/27/23 22:59 06:59 14:59 Intake Total 289.292 / 289.292 Output Total 250 / 250 300 / 550 Balance -250 / -250 -10.708 / -260.708 Weight last 48 hrs Weight 95.424 kg Weight 95.424 kg Weight 98.883 kg Physical Exam 2 Narrative: Patient is showing signs of withdrawal with lethargy fatigue with irritability Hypoxic On nasal cannula Bilateral breath sounds with rhonchi Abdomen distended Sign of fluid overload S1, S2 Able to follow commands Data 05/27/23 03:35 05/27/23 03:35 A&P Assessment and plan (1) Alcohol dependence: Qualifiers: Substance use status: unspecified alcohol-induced disorder Qualified Code(s): F10.29 - Alcohol dependence with unspecified alcohol-induced disorder (2) HTN (hypertension), benign: (3) Systolic blood pressure greater than or equal to 140 mm Hg: (4) CHF (congestive heart failure): Qualifiers: Heart failure type: systolic Heart failure chronicity: acute on chronic Qualified Code(s): I50.23 - Acute on chronic systolic (congestive) heart failure (5) Cardiomyopathy: Qualifiers: Cardiomyopathy type: unspecified Qualified Code(s): I42.9 - Cardiomyopathy, unspecified (6) Atrial fibrillation with rapid ventricular response: (7) Multiple thyroid nodules: (8) Abdominal distension: (9) BPH loc w urin obs/LUTS: (10) Wheezing: (11) Shortness of breath: (12) Acute dyspnea: (13) COPD (chronic obstructive pulmonary disease): Qualifiers: COPD type: unspecified COPD Qualified Code(s): J44.9 - Chronic obstructive pulmonary disease, unspecified Plan New onset CHF New onset A-fib Patient has significant leukocytosis today with low-grade fever Monitor for signs of sepsis Patient is tachypneic tachycardic with leukocytosis Not a candidate for septic bolus because of active congestive heart failure Blood pressure stable Patient will need diagnostic cardiac cath EF is extremely low A-fib RVR currently on Cardizem drip at minimal dose I have asked nurse to turn it off I have kept patient n.p.o. for today in case Dr. Jacobs is plan for coronary angiogram I have patient will go for coronary angiogram with low-grade fever and leukocytosis Patient most likely has sleep apnea ABG did not show hypercapnia Currently requiring oxygen supplementation Low-grade fever noted as well Grossly negative Requested chest x-ray this morning will request blood culture, urinalysis and lactic acid Record urine output will request Parnell catheter Alcohol abuse Concern for aspiration pneumonia Full code Currently on therapeutic Lovenox regimen For hypertension and evidence of regimen needs to be optimized Today blood pressure is stable Attestations 2 Medical Necessity Statement*: Continue medical management Diagnoses Alcohol dependence with unspecified alcohol-induced disorder F10.29 Substance use status: unspecified alcohol-induced disorder HTN (hypertension), benign I10 Systolic blood pressure greater than or equal to 140 mm Hg R03.0 Acute on chronic systolic congestive heart failure I50.23 Heart failure type: systolic Heart failure chronicity: acute on chronic Cardiomyopathy, unspecified type I42.9 Cardiomyopathy type: unspecified Atrial fibrillation with rapid ventricular response I48.91 Multiple thyroid nodules E04.2 Abdominal distension R14.0 BPH loc w urin obs/LUTS N40.1 Wheezing R06.2 Shortness of breath R06.02 Acute dyspnea R06.00 Chronic obstructive pulmonary disease, unspecified COPD type J44.9 COPD type: unspecified COPD
[2023-05-27] MEDS: acetaminophen 325 mg Tablet 650 MG PO (09:10)
[2023-05-27] MEDS: lisinopril 10 mg Tablet PO (09:10)
[2023-05-27] MEDS: folic acid 1 mg Tablet PO (09:10)
[2023-05-27] MEDS: metoprolol tartrate 25 mg Tablet PO ×2 (09:10→20:26)
[2023-05-27] MEDS: thiamine 100 mg Tablet PO (09:11)
[2023-05-27] MEDS: spironolactone 25 mg Tablet PO (09:11)
[2023-05-27] MEDS: potassium chloride ER 20 mEq Tablet 40 MEQ PO (09:11)
[2023-05-27] MEDS: sennosides-docusate Tablet 1 TAB PO ×2 (09:11→17:52)
[2023-05-27] MEDS: multivitamin therapeutic Tablet 1 TAB PO (09:11)
[2023-05-27] MEDS: pantoprazole DR 40 mg Tablet PO (09:11)
--- NOTE | 2023-05-27 09:14 | XR_ITS ---
WS: [id number] XR chest 1V portable [id number] REASON FOR EXAM: fever FINDINGS: Chest is unchanged compared to 05/25/2023. Moderate tortuosity of the thoracic aorta. Cardiomegaly. Calcified granulomas disease in both hemithoraces. No acute pulmonary parenchymal or pleural abnormality is identified. Total reverse right shoulder arthroplasty. IMPRESSION: No acute chest abnormality.
[2023-05-27 10:45] LABS: Lactic Sepsis W/Reflex 0.9 mmol/L (0.5-2.2)
--- NOTE | 2023-05-27 11:02 | P.PN_ITS ---
Subjective 2 Subjective: The patient's white cell count has gone up significantly. He also has a low- grade fever. Seems to have some sort of respiratory infection. It was decided to hold off for any invasive cardiac workup at this time. Medications: Medication Review Details: Current Medications Acetaminophen (Acetaminophen 325 Mg Tablet) 650 mg PO Q6H PRN PRN Reason: Mild/Mod Pain Or Temp >/= 101 Last Admin: 05/27/23 09:10 Dose: 650 mg Albuterol/Ipratropium (Ipratropium-Albuterol 3 Ml Neb) 3 ml INHALATION Q6H WILL Last Admin: 05/27/23 08:03 Dose: 3 ml Diltiazem HCl (Diltiazem 30 Mg Tablet) 30 mg PO Q6H WILL Last Admin: 05/27/23 09:10 Dose: 30 mg Enoxaparin Sodium (Enoxaparin 100 Mg/Ml Syringe) 100 mg 1 mg/kg (100 mg) SUBCUT Q12H WILL Last Admin: 05/27/23 09:09 Dose: 100 mg Folic Acid (Folic Acid 1 Mg Tablet) 1 mg PO DAILY WILL Last Admin: 05/27/23 09:10 Dose: 1 mg Furosemide (Furosemide 10 Mg/Ml Sdv 4ml) 40 mg IVP Q12H WILL Diltiazem HCl 100 mg/ Sodium (Chloride) 100 mls @ 0 mls/hr IV .Q0M WILL; Protocol Last Admin: 05/27/23 00:27 Dose: 7.5 mg/hr, 7.5 mls/hr Piperacillin Sod/Tazobactam (Sod 3.375 gm/ Sodium Chloride) 50 mls @ 12.5 mls/hr IV Q8H WILL; Protocol Lactulose (Lactulose Oral Liq 20 Gm/30 Ml Udc) 20 gm PO Q6H PRN PRN Reason: constip Lisinopril (Lisinopril 10 Mg Tablet) 10 mg PO DAILY WILL Last Admin: 05/27/23 09:10 Dose: 10 mg Lorazepam (Lorazepam 2 Mg Tablet) 2 mg PO Q4H PRN; Protocol PRN Reason: WITHDRAWAL Last Admin: 05/26/23 19:43 Dose: 2 mg Lorazepam (Lorazepam 2 Mg/Ml Inj 1 Ml) 2 mg IVP PRN PRN; Protocol PRN Reason: WITHDRAWAL Last Admin: 05/27/23 00:34 Dose: 2 mg Metoprolol Tartrate (Metoprolol Tartrate 25 Mg Tablet) 25 mg PO BID@0900,2100 [facility] Last Admin: 05/27/23 09:10 Dose: 25 mg Multivitamins Therapeutic (Multivitamin Therapeutic Tablet) 1 tab PO DAILY [facility] Last Admin: 05/27/23 09:11 Dose: 1 tab Naloxone HCl (Naloxone 0.4 Mg/Ml Sdv) 0.1 mg IVP Q2M PRN PRN Reason: OPIATERV Ondansetron HCl (Ondansetron 2 Mg/Ml Sdv 2 Ml) 4 mg IVP Q8H PRN PRN Reason: vomiting, or N/V if npo Pantoprazole Sodium (Pantoprazole Dr 40 Mg Tablet) 40 mg PO DAILY [facility] Last Admin: 05/27/23 09:11 Dose: 40 mg Potassium Chloride (Potassium Chloride Er 20 Meq Tablet) 40 meq PO DAILY [facility] Last Admin: 05/27/23 09:11 Dose: 40 meq Senna/Docusate Sodium (Sennosides-Docusate Tablet) 1 tab PO BID [facility] Last Admin: 05/27/23 09:11 Dose: 1 tab Spironolactone (Spironolactone 25 Mg Tablet) 25 mg PO DAILY [facility] Last Admin: 05/27/23 09:11 Dose: 25 mg Thiamine Mononitrate (Thiamine 100 Mg Tablet) 100 mg PO DAILY [facility] Last Admin: 05/27/23 09:11 Dose: 100 mg Vitals/I&O/Wt Last Vital Signs Temp 100.4 F H 05/27/23 08:00 Pulse 86 05/27/23 08:03 Resp 24 H 05/27/23 08:03 BP 114/63 05/27/23 08:00 Pulse Ox 93 05/27/23 08:03 O2 Del Method Aerosol Mask 05/27/23 08:03 O2 Flow Rate 10 05/27/23 08:03 05/26/23 05/27/23 05/27/23 22:59 06:59 14:59 Intake Total 289.292 / 289.292 Output Total 250 / 250 300 / 550 Balance -250 / -250 -10.708 / -260.708 Weight last 48 hrs Weight 210 lb 6 oz Weight 210 lb 6 oz Weight 218 lb Physical Exam 2 Narrative: GENERAL: The patient is alert and oriented times three. Not in any acute distress. Slightly tachypneic HEENT: No significant pallor, icterus or lymphadenopathy.Oral cavity: There are no mucous membrane lesions. NECK: Trachea appears to be central. No masses noted. No JVD or thyromegaly appreciated. RESPIRATORY: Breath sounds are heard bilaterally. Scattered expiratory wheezing and some occasional crackles. Intensity of the breath sounds are diminished in the bases BREASTS: Deferred. HEART: The heart sounds are normal. No S3 or S4. Short systolic murmur at the base of the heart. No diastolic murmurs. No pericardial rub ABDOMEN: No vessel pulsations or distention. No tenderness. No organomegaly appreciated. Bowel sounds are normally heard. : Deferred. RECTAL: Deferred. LYMPHATIC: No lymphadenopathy noted in the neck. EXTREMITIES: N trace edema with no cyanosis. Good peripheral pulses. MUSCULOSKELETAL: No acute joint deformities or swelling SKIN: There are no significant rashes or ecchymosis NEUROPSYCHIATRIC: The patient is alert and oriented x3. Appears to be in a good mood. No tremors or rigidity noted. Data 05/27/23 03:35 05/27/23 03:35 Other Labs: Laboratory Last Values WBC 16.99 10^3/uL (3.29-11.43) H 05/27/23 03:35 RBC 5.68 10^6/uL (3.85-5.65) H 05/27/23 03:35 Hgb 15.80 g/dL (11.27-16.99) 05/27/23 03:35 Hct 49.8 % (37-53) 05/27/23 03:35 MCV 87.7 fl (82-101) 05/27/23 03:35 MCH 27.8 pg (27-33) 05/27/23 03:35 MCHC 31.7 g/dL (30-55) 05/27/23 03:35 RDW 14.5 % (12.1-15.1) 05/27/23 03:35 Plt Count 267 10^3/cmm (157-399) 05/27/23 03:35 MPV 9.6 fL (7.4-10.4) 05/27/23 03:35 Neut % (Auto) 84.9 % 05/27/23 03:35 Lymph % (Auto) 5.2 % 05/27/23 03:35 [place] % (Auto) 8.7 % 05/27/23 03:35 Eos % (Auto) 0.4 % 05/27/23 03:35 Baso % (Auto) 0.4 % 05/27/23 03:35 Neut # (Auto) 14.41 10^3/uL (1.8-7.7) H 05/27/23 03:35 Lymph # (Auto) 0.9 10^3/uL (0.8-4.8) 05/27/23 03:35 [place] # (Auto) 1.5 10^3/uL (0.2-0.9) H 05/27/23 03:35 Eos # (Auto) 0.1 10^3/uL (0.0-0.8) 05/27/23 03:35 Baso # (Auto) 0.1 10^3/uL (0.0-0.1) 05/27/23 03:35 Nucleated RBC % (auto) 0 % 05/27/23 03:35 Nucleated RBCs # 0.0 /100WBC 05/27/23 03:35 PT 15.80 SECONDS (12.1-14.9) H 05/25/23 20:30 INR 1.22 (0.8-1.2) H 05/25/23 20:30 APTT 26.5 SECONDS (23.9-36.7) 05/25/23 20:30 D-Dimer 1.87 ug/mLFEU (0-0.59) H 05/25/23 20:30 Specimen Type Arterial 05/27/23 08:07 Sample Site Radial, left 05/27/23 08:07 ABG pH 7.46 (7.35-7.45) H 05/27/23 08:07 ABG pCO2 41.6 mmHg (35-45) 05/27/23 08:07 ABG pO2 89.3 mmHg (80.0-100.0) 05/27/23 08:07 ABG PO2/FiO2 Ratio 0 05/27/23 08:07 ABG HCO3 29.6 mmol/L (22-26) H 05/27/23 08:07 ABG O2 Saturation 97.5 05/27/23 08:07 ABG Base Excess 5.2 mmol/L (-2.0-2.0) H 05/27/23 08:07 [place] Test Pos 05/27/23 08:07 A-a O2 Gradient 21.4 mmHg (5-10) H 05/27/23 08:07 Hematocrit 48.0 % (42-52) 05/27/23 08:07 Hgb O2 Saturation 96.3 % (95-100) 05/27/23 08:07 Carboxyhemoglobin 1.0 %THgb (0.4-20.1) 05/27/23 08:07 Methemoglobin 0.2 % (0.4-1.5) L 05/27/23 08:07 Total Hemoglobin 15.7 g/dL (14-18) 05/27/23 08:07 Sodium 138.0 mmol/L (131-143) 05/27/23 08:07 Potassium 3.4 mmol/L (3.5-5.0) L 05/27/23 08:07 Glucose 112.0 mg/dL (70-115) 05/27/23 08:07 Ionized Calcium 1.2 mmol/L (1.1-1.4) 05/27/23 08:07 O2 Delivery Device Nc 05/27/23 08:07 O2 Liters/Min 6.0 % 05/27/23 08:07 FiO2 44.0 % 05/27/23 08:07 [employer] Supervisor Lieutenant ID Benro 05/27/23 08:07 Sodium 139 mmol/L (136-145) 05/27/23 03:35 Potassium 3.9 mmol/L (3.5-5.1) 05/27/23 03:35 Chloride 101 mmol/L (98-107) 05/27/23 03:35 Carbon Dioxide 27 mmol/L (22-29) 05/27/23 03:35 Anion Gap 14.9 (5-19) 05/27/23 03:35 BUN 26 mg/dL (8-23) H 05/27/23 03:35 Creatinine 1.0 mg/dL (0.7-1.2) 05/27/23 03:35 GFR Calculation Not Reportable 05/27/23 03:35 Glucose 122 mg/dL (65-115) H 05/27/23 03:35 Calculated Osmolality 294 mOsm/kg (285-295) 05/27/23 03:35 Lactic Acid 0.9 mmol/L (0.5-2.2) 05/27/23 10:01 Calcium 9.3 mg/dL (8.5-10.5) 05/27/23 03:35 Magnesium 1.9 mg/dL (1.7-2.3) 05/26/23 02:20 Total Bilirubin 0.7 mg/dL (0.15-1.2) 05/27/23 03:35 AST 24 U/L (0-40) 05/27/23 03:35 ALT 17 U/L (0-41) 05/27/23 03:35 Alkaline Phosphatase 94 U/L (40-130) 05/27/23 03:35 Ammonia 81 umol/L (16-60) H 05/27/23 03:35 Troponin T Baseline 39 ng/L (0-15) H 05/25/23 20:30 Troponin T 120 Minute 30.29 ng/L (0-15) H 05/25/23 22:18 Delta Troponin T -8.71 ABS# (0-10) L 05/25/23 22:18 Troponin T Hi Sens 6Hr 35.09 ng/L (0-15) H 05/26/23 02:20 Troponin T Hi Sens 6Hr Delta -3.91 ng/L (0-12) L 05/26/23 02:20 NT-Pro-B Natriuret Pep 3144 pg/mL (0-125) H 05/25/23 20:30 Total Protein 7.3 g/dL (6.6-8.7) 05/27/23 03:35 Albumin 3.9 g/dL (3.5-5.2) 05/27/23 03:35 Globulin 3.4 g/dL (1.3-4.6) 05/27/23 03:35 TSH 0.81 uIU/mL (0.27-4.20) 05/26/23 02:20 Urine Opiates Screen Negative ng/mL (Negative) 05/26/23 13:40 Ur Barbiturates Screen Negative ng/mL (Negative) 05/26/23 13:40 Ur Phencyclidine Scrn Negative ng/mL (Negative) 05/26/23 13:40 Ur Amphetamines Screen Negative ng/mL (Negative) 05/26/23 13:40 U Benzodiazepines Scrn Negative ng/mL (Negative) 05/26/23 13:40 Urine Cocaine Screen Negative ng/mL (Negative) 05/26/23 13:40 U Marijuana (THC) Screen Negative ng/mL (Negative) 05/26/23 13:40 Ethyl Alcohol < 10 mg/dL (0-10) 05/26/23 02:20 A&P Assessment and plan (1) Atrial fibrillation with rapid ventricular response: The heart rate seems to be staying under control. May continue on the current medications. (2) Cardiomyopathy: The etiology of the cardiomyopathy is not clear. Possibility of alcoholic cardiomyopathy/arrhythmia induced/ischemia are considerations. Once the heart failure is properly treated, we may consider doing a Myocardial perfusion imaging, we may consider doing a cardiac catheterization to further evaluate the coronary arteries. Qualifiers: Cardiomyopathy type: unspecified Qualified Code(s): I42.9 - Cardiomyopathy, unspecified (3) HTN (hypertension), benign: The blood pressure is elevated. I will start him on lisinopril 10 mg p.o. now and daily (4) CHF (congestive heart failure): Continue on the current medications. Qualifiers: Heart failure type: systolic Heart failure chronicity: acute on chronic Qualified Code(s): I50.23 - Acute on chronic systolic (congestive) heart failure (5) Alcohol dependence: Patient strongly advised to quit drinking. Continue on the other supportive measures Qualifiers: Substance use status: unspecified alcohol-induced disorder Qualified Code(s): F10.29 - Alcohol dependence with unspecified alcohol-induced disorder (6) COPD (chronic obstructive pulmonary disease): Management of the COPD as per the primary Qualifiers: COPD type: unspecified COPD Qualified Code(s): J44.9 - Chronic obstructive pulmonary disease, unspecified Plan Once the infection is appropriately addressed and also heart failure is compensated, we may consider doing a cardiac catheterization to further evaluate the coronary status and decide on further management Attestations 2 Medical Necessity Statement*: Patient requires continued hospital stay for close monitoring and further management Coding Level of Care Code 88909 Diagnoses Atrial fibrillation with rapid ventricular response I48.91 Cardiomyopathy, unspecified type I42.9 Cardiomyopathy type: unspecified HTN (hypertension), benign I10 Acute on chronic systolic congestive heart failure I50.23 Heart failure type: systolic Heart failure chronicity: acute on chronic Alcohol dependence with unspecified alcohol-induced disorder F10.29 Substance use status: unspecified alcohol-induced disorder Chronic obstructive pulmonary disease, unspecified COPD type J44.9 COPD type: unspecified COPD
--- NOTE | 2023-05-27 11:05 | PC.SOCIAL ---
IMM Update pg 2 of IMM updated and reviewed w/ patient. Copy provided and copy dated, initialed and placed in chart.
[2023-05-27] MEDS: FUROsemide 10 mg/mL SDV 4mL 40 MG IVP ×2 (11:52→20:35)
[2023-05-27] MEDS: piperacillin-tazobactam 3.375 GM in sodium chloride 0.9% (plus) 50 ML IV ×2 (11:53→17:52)
[2023-05-27 12:34] LABS: Add Urine Microscopic? YES; Bilirubin Urine Neg (Negative); Blood Urine Trace (Negative); Glucose Urine UA Norm (Normal); Ketones Urine 1+ (Negative); Leukocyte Esterase Urine Negative (Negative); Nitrate Urine Negative (Negative); Protein Urine 1+ (Negative); Urine Appearance Clear (CLEAR); Urine Color Yellow (Yellow); Urobilinogen Urine Norm (Negative); pH Urine 5 (5-7)
[2023-05-27 12:35] LABS: Add Urine Culture? No; Bacteria Urine TRACE /hpf; Mucus Urine 2+ /hpf; RBC Urine 0-4 /hpf (0-2); Squamous Epithelial Cell Urine 0-4 /hpf (0-5); WBC Urine 0-4 /hpf (0-5)
[2023-05-27 14:09] LABS: Adenovirus Not Detected (NOT DETECT); Chlamydia Pneumoniae Not Detected (NOT DETECT); Coronavirus 229E,HKU1,NL63,OC4 Not Detected (NOT DETECT); Human Metapneumovirus Not Detected (NOT DETECT); Human Rhinovirus/Enterovirus Not Detected (NOT DETECT); Influenza A Not Detected (NOT DETECT); Influenza A H1 Not Detected (NOT DETECT); Influenza A H1-2009 Not Detected (NOT DETECT); Influenza A H3 Not Detected (NOT DETECT); Influenza B Not Detected (NOT DETECT); Mycoplasma Pneumoniae Not Detected (NOT DETECT); Parainfluenza Virus Type 1 Not Detected (NOT DETECT); Parainfluenza Virus Type 2 Not Detected (NOT DETECT); Parainfluenza Virus Type 3 Not Detected (NOT DETECT); Parainfluenza Virus Type 4 Not Detected (NOT DETECT); Respiratory Syncytial Virus A Not Detected (NOT DETECT); Respiratory Syncytial Virus B Not Detected (NOT DETECT); SARS-COV-2 Not Detected (NOT DETECT)
[2023-05-28] VITALS (15 sets, daily range): BP systolic 96–142; BP diastolic 60–87; PULSE 82–105; RESP 16–33; TEMP 36.4–36.8; O2SAT 90–96
[2023-05-28] MEDS: piperacillin-tazobactam 3.375 GM in sodium chloride 0.9% (plus) 50 ML IV ×3 (02:01→18:12)
[2023-05-28] MEDS: dilTIAZem 30 mg Tablet PO ×2 (02:01→10:08)
[2023-05-28 03:24] LABS: Basophils # 0.1 10^3/uL (0.0-0.1); Basophils % 0.5 %; Eosinophils # 0.1 10^3/uL (0.0-0.8); Eosinophils % 0.7 %; Hematocrit 49.4 % (37-53); Lymphocytes # 1.4 10^3/uL (0.8-4.8); Lymphocytes % 9.4 %; Mean Corpuscular HGB Conc 31.6 g/dL (30-55); Mean Corpuscular Hemoglobin 27.8 pg (27-33); Mean Corpuscular Volume 87.9 fl (82-101); Mean Platelet Volume 12.1 fL (7.4-10.4); Monocytes # 1.6 10^3/uL (0.2-0.9); Monocytes % 10.5 %; Neutrophils # 12.04 10^3/uL (1.8-7.7); Neutrophils % 78.4 %; Nucleated Red Blood Cells % 0 %; Platelet Count 177 10^3/cmm (157-399); Red Blood Count 5.62 10^6/uL (3.85-5.65); Red Cell Distribution Width 14.5 % (12.1-15.1); White Blood Count 15.35 10^3/uL (3.29-11.43)
[2023-05-28 03:52] LABS: Blood Urea Nitrogen 23 mg/dL (8-23); Calcium 8.6 mg/dL (8.5-10.5); Carbon Dioxide 27 mmol/L (22-29); Chloride 101 mmol/L (98-107); Glucose 94 mg/dL (65-115); Osmolality Calculated 295 mOsm/kg (285-295); Sodium 141 mmol/L (136-145)
[2023-05-28 04:00] LABS: Anion Gap 17.3 (5-19); Potassium 4.3 mmol/L (3.5-5.1)
[2023-05-28] MEDS: acetaminophen 325 mg Tablet 650 MG PO (06:35)
[2023-05-28] MEDS: enoxaparin 100 mg/mL Syringe SUBCUT ×2 (06:42→18:11)
[2023-05-28] MEDS: ipratropium-albuterol 3 mL Neb INHALATION ×3 (09:32→19:49)
--- NOTE | 2023-05-28 10:02 | P.PN_ITS ---
Subjective 2 Subjective: Patient is alert. No acute distress heart rate in the 80s to 90s atrial fibrillation. Denies any chest pain or shortness of breath Vitals/I&O/Wt Last Vital Signs Temp 98.0 F 05/28/23 08:00 Pulse 96 05/28/23 08:00 Resp 16 05/28/23 08:00 BP 113/79 05/28/23 08:00 Pulse Ox 91 05/28/23 08:00 O2 Del Method Nasal Cannula 05/28/23 08:00 O2 Flow Rate 4 05/28/23 08:00 05/27/23 05/28/23 05/28/23 22:59 06:59 14:59 Intake Total 1240 / 1480 2250 / 3730 Output Total 900 / 900 2100 / 3000 Balance 340 / 580 150 / 730 Weight last 48 hrs Weight 210 lb 12.8 oz Weight 210 lb 6 oz Weight 210 lb 6 oz Physical Exam 2 Narrative: GENERAL: The patient is alert and oriented times three. Not in any acute distress. Slightly tachypneic HEENT: No significant pallor, icterus or lymphadenopathy.Oral cavity: There are no mucous membrane lesions. NECK: Trachea appears to be central. No masses noted. No JVD or thyromegaly appreciated. RESPIRATORY: Breath sounds are heard bilaterally. Scattered expiratory wheezing and some occasional crackles. Intensity of the breath sounds are diminished in the bases BREASTS: Deferred. HEART: The heart sounds are normal. No S3 or S4. Short systolic murmur at the base of the heart. No diastolic murmurs. No pericardial rub ABDOMEN: No vessel pulsations or distention. No tenderness. No organomegaly appreciated. Bowel sounds are normally heard. : Deferred. RECTAL: Deferred. LYMPHATIC: No lymphadenopathy noted in the neck. EXTREMITIES: N trace edema with no cyanosis. Good peripheral pulses. MUSCULOSKELETAL: No acute joint deformities or swelling SKIN: There are no significant rashes or ecchymosis NEUROPSYCHIATRIC: The patient is alert and oriented x3. Appears to be in a good mood. No tremors or rigidity noted. Urinary Catheter Management: Parnell: Cath Placed During This Visit: yes Reason for Continuing Indwelling Catheter: Accurate Measurement of Urinary Output in Critically Ill Patients Urinary Catheter Date of Insertion: 05/27/23 Urinary Catheter Time of Insertion: 11:55 Data 05/28/23 02:38 05/28/23 02:38 A&P Assessment and plan (1) Cardiomyopathy: With ejection fraction 45% likely due to alcohol abuse. Patient will need further ischemic workup on Tuesday likely cardiac cath if he remains afebrile and stable. N.p.o. after midnight on Tuesday Qualifiers: Cardiomyopathy type: unspecified Qualified Code(s): I42.9 - Cardiomyopathy, unspecified (2) Alcohol dependence: Patient instructed to quit. Qualifiers: Substance use status: unspecified alcohol-induced disorder Qualified Code(s): F10.29 - Alcohol dependence with unspecified alcohol-induced disorder (3) Atrial fibrillation with rapid ventricular response: Rate relatively controlled continue current rate controlling medications. Eventually need anticoagulation with Eliquis. Attestations 2 Medical Necessity Statement*: Deferred to internal medicine Coding Level of Care Code 41507 Diagnoses Cardiomyopathy, unspecified type I42.9 Cardiomyopathy type: unspecified Alcohol dependence with unspecified alcohol-induced disorder F10.29 Substance use status: unspecified alcohol-induced disorder Atrial fibrillation with rapid ventricular response I48.91
[2023-05-28] MEDS: folic acid 1 mg Tablet PO (10:08)
[2023-05-28] MEDS: thiamine 100 mg Tablet PO (10:08)
[2023-05-28] MEDS: pantoprazole DR 40 mg Tablet PO (10:08)
[2023-05-28] MEDS: FUROsemide 10 mg/mL SDV 4mL 40 MG IVP ×2 (10:08→12:17)
[2023-05-28] MEDS: lisinopril 10 mg Tablet PO (10:08)
[2023-05-28] MEDS: potassium chloride ER 20 mEq Tablet 40 MEQ PO (10:09)
[2023-05-28] MEDS: sennosides-docusate Tablet 1 TAB PO ×2 (10:09→18:11)
[2023-05-28] MEDS: metoprolol tartrate 25 mg Tablet PO ×2 (10:09→12:17)
[2023-05-28] MEDS: spironolactone 25 mg Tablet PO (10:09)
[2023-05-28] MEDS: multivitamin therapeutic Tablet 1 TAB PO (10:09)
--- NOTE | 2023-05-28 10:50 | P.PN_ITS ---
Subjective 2 Subjective: No fever other than 1 episode that was noticed yesterday Infectious workup has been negative Patient is doing much better he is complaining of back pain No active chest pain or shortness of breath Spoke with Dr. Caldwell who recommended workup on Tuesday considering his leukocytosis, his troponins were trending down No active chest pain Vitals/I&O/Wt Last Vital Signs Temp 98.0 F 05/28/23 08:00 Pulse 96 05/28/23 08:00 Resp 16 05/28/23 08:00 BP 113/79 05/28/23 08:00 Pulse Ox 91 05/28/23 08:00 O2 Del Method Nasal Cannula 05/28/23 08:00 O2 Flow Rate 4 05/28/23 08:00 05/27/23 05/28/23 05/28/23 22:59 06:59 14:59 Intake Total 1240 / 1480 2250 / 3730 Output Total 900 / 900 2100 / 3000 Balance 340 / 580 150 / 730 Weight last 48 hrs Weight 95.617 kg Weight 95.424 kg Weight 95.424 kg Physical Exam 2 Narrative: Awake and alert Signs of fluid overload improving Distended abdomen nontender Complaining of back pain No signs of cauda equina GCS 15 Hemodynamically stable A-fib without RVR Heart rate around 90s Urinary Catheter Management: Parnell: Cath Placed During This Visit: yes Reason for Continuing Indwelling Catheter: Accurate Measurement of Urinary Output in Critically Ill Patients Urinary Catheter Date of Insertion: 05/27/23 Urinary Catheter Time of Insertion: 11:55 Data 05/28/23 02:38 05/28/23 02:38 A&P Assessment and plan (1) Alcohol dependence: Qualifiers: Substance use status: unspecified alcohol-induced disorder Qualified Code(s): F10.29 - Alcohol dependence with unspecified alcohol-induced disorder (2) HTN (hypertension), benign: (3) Systolic blood pressure greater than or equal to 140 mm Hg: (4) CHF (congestive heart failure): Qualifiers: Heart failure type: systolic Heart failure chronicity: acute on chronic Qualified Code(s): I50.23 - Acute on chronic systolic (congestive) heart failure (5) Cardiomyopathy: Qualifiers: Cardiomyopathy type: unspecified Qualified Code(s): I42.9 - Cardiomyopathy, unspecified (6) Irregular heart rate: (7) Atrial fibrillation with rapid ventricular response: (8) BPH loc w urin obs/LUTS: Plan Ischemic workup possibly Tuesday Stress test versus angiogram Leukocytosis is persistent however no active source of infection Isolated episode of fever Respiratory panel negative No sign of UTI Chest x-ray unremarkable No abdominal pain Complaining of back pain which is chronic Will remove Parnell catheter Persistent leukocytosis I will continue Zosyn Full code Cardiac diet A-fib without RVR continue therapeutic Lovenox along AV aamir blocking agent I will transition him to metoprolol would avoid Cardizem because of reduced ejection fraction Attestations 2 Medical Necessity Statement*: Continue medical management Diagnoses Alcohol dependence with unspecified alcohol-induced disorder F10.29 Substance use status: unspecified alcohol-induced disorder HTN (hypertension), benign I10 Systolic blood pressure greater than or equal to 140 mm Hg R03.0 Acute on chronic systolic congestive heart failure I50.23 Heart failure type: systolic Heart failure chronicity: acute on chronic Cardiomyopathy, unspecified type I42.9 Cardiomyopathy type: unspecified Irregular heart rate I49.9 Atrial fibrillation with rapid ventricular response I48.91 BPH loc w urin obs/LUTS N40.1
[2023-05-28] MEDS: TRAMadol 50 mg Tablet PO (20:32)
[2023-05-28] MEDS: metoprolol tartrate 50 mg Tablet PO (20:32)
[2023-05-29] VITALS (14 sets, daily range): BP systolic 129–137; BP diastolic 81–115; PULSE 78–119; RESP 16–26; TEMP 36.5–36.6; O2SAT 84–97
[2023-05-29] MEDS: piperacillin-tazobactam 3.375 GM in sodium chloride 0.9% (plus) 50 ML IV ×3 (01:26→17:42)
[2023-05-29 03:57] LABS: Basophils # 0.1 10^3/uL (0.0-0.1); Basophils % 0.6 %; Eosinophils # 0.2 10^3/uL (0.0-0.8); Eosinophils % 1.3 %; Hematocrit 49.1 % (37-53); Lymphocytes # 1.7 10^3/uL (0.8-4.8); Lymphocytes % 12.9 %; Mean Corpuscular HGB Conc 31.4 g/dL (30-55); Mean Corpuscular Hemoglobin 27.2 pg (27-33); Mean Corpuscular Volume 86.6 fl (82-101); Mean Platelet Volume 9.6 fL (7.4-10.4); Monocytes # 1.3 10^3/uL (0.2-0.9); Monocytes % 10.1 %; Neutrophils # 9.66 10^3/uL (1.8-7.7); Neutrophils % 74.8 %; Nucleated Red Blood Cells % 0 %; Platelet Count 298 10^3/cmm (157-399); Red Blood Count 5.67 10^6/uL (3.85-5.65); Red Cell Distribution Width 14.2 % (12.1-15.1); White Blood Count 12.93 10^3/uL (3.29-11.43)
[2023-05-29 04:21] LABS: Anion Gap 10.7 (5-19); Blood Urea Nitrogen 27 mg/dL (8-23); Calcium 8.8 mg/dL (8.5-10.5); Carbon Dioxide 31 mmol/L (22-29); Chloride 99 mmol/L (98-107); Glucose 109 mg/dL (65-115); Osmolality Calculated 290 mOsm/kg (285-295); Potassium 3.7 mmol/L (3.5-5.1); Sodium 137 mmol/L (136-145)
[2023-05-29] MEDS: enoxaparin 100 mg/mL Syringe SUBCUT ×2 (07:00→20:22)
[2023-05-29] MEDS: potassium chloride ER 20 mEq Tablet 40 MEQ PO (08:47)
[2023-05-29] MEDS: folic acid 1 mg Tablet PO (08:47)
[2023-05-29] MEDS: metoprolol tartrate 50 mg Tablet PO ×2 (08:47→12:12)
[2023-05-29] MEDS: spironolactone 25 mg Tablet PO (08:47)
[2023-05-29] MEDS: multivitamin therapeutic Tablet 1 TAB PO (08:47)
[2023-05-29] MEDS: thiamine 100 mg Tablet PO (08:47)
[2023-05-29] MEDS: sennosides-docusate Tablet 1 TAB PO (08:47)
[2023-05-29] MEDS: pantoprazole DR 40 mg Tablet PO (08:48)
[2023-05-29] MEDS: lisinopril 10 mg Tablet PO (08:48)
[2023-05-29] MEDS: ipratropium-albuterol 3 mL Neb INHALATION ×3 (08:55→20:32)
[2023-05-29] MEDS: TRAMadol 50 mg Tablet PO (08:55)
--- NOTE | 2023-05-29 09:20 | P.PN_ITS ---
Subjective 2 Subjective: Patient is alert awake without any acute distress doing well without any chest pain or shortness of breath Vitals/I&O/Wt Last Vital Signs Temp 97.7 F 05/29/23 04:00 Pulse 81 05/29/23 08:57 Resp 16 05/29/23 08:54 BP 129/82 05/29/23 04:00 Pulse Ox 96 05/29/23 08:54 O2 Del Method Room Air 05/29/23 08:54 O2 Flow Rate 2 05/29/23 04:00 05/28/23 05/29/23 05/29/23 22:59 06:59 14:59 Intake Total 220 / 270 340 / 610 Output Total 750 / 1750 500 / 2250 Balance -530 / -1480 -160 / -1640 Weight last 48 hrs Weight 207 lb 12.8 oz Weight 210 lb 12.8 oz Physical Exam 2 Narrative: Awake and alert Signs of fluid overload improving Distended abdomen nontender Complaining of back pain No signs of cauda equina GCS 15 Hemodynamically stable A-fib without RVR Heart rate around 90s Urinary Catheter Management: Parnell: Cath Placed During This Visit: yes, but has since been removed by the nurse Reason for Continuing Indwelling Catheter: Decision to DC Catheter Urinary Catheter Date of Insertion: 05/27/23 Urinary Catheter Time of Insertion: 11:55 Date Urinary Catheter Removed: 05/28/23 Time Urinary Catheter Discontinued: 12:29 Data 05/29/23 03:43 05/29/23 03:43 Micro: Microbiology 05/27/23 11:07 Blood Culture - Preliminary Blood 05/27/23 10:01 Blood Culture - Preliminary Blood A&P Assessment and plan (1) Cardiomyopathy: With ejection fraction 45% likely due to alcohol abuse. Patient will need further ischemic workup on Tuesday likely cardiac cath if he remains afebrile and stable. N.p.o. after midnight for possible cardiac cath tomorrow Qualifiers: Cardiomyopathy type: unspecified Qualified Code(s): I42.9 - Cardiomyopathy, unspecified (2) Alcohol dependence: Patient instructed to quit. Qualifiers: Substance use status: unspecified alcohol-induced disorder Qualified Code(s): F10.29 - Alcohol dependence with unspecified alcohol-induced disorder (3) Atrial fibrillation with rapid ventricular response: Rate relatively controlled continue current rate controlling medications. Eventually need anticoagulation with Eliquis. Attestations 2 Medical Necessity Statement*: differed to internal medicine Coding Level of Care Code Acute Code for g Fwd Diagnoses Cardiomyopathy, unspecified type I42.9 Cardiomyopathy type: unspecified Alcohol dependence with unspecified alcohol-induced disorder F10.29 Substance use status: unspecified alcohol-induced disorder Atrial fibrillation with rapid ventricular response I48.91
--- NOTE | 2023-05-29 10:29 | P.PN_ITS ---
Subjective 2 Subjective: Patient is stating that he is feeling better Plan for angiogram tomorrow Will make him n.p.o. after midnight Vitals/I&O/Wt Last Vital Signs Temp 97.7 F 05/29/23 04:00 Pulse 81 05/29/23 08:57 Resp 16 05/29/23 08:54 BP 129/82 05/29/23 04:00 Pulse Ox 96 05/29/23 08:54 O2 Del Method Room Air 05/29/23 08:54 O2 Flow Rate 2 05/29/23 04:00 05/28/23 05/29/23 05/29/23 22:59 06:59 14:59 Intake Total 220 / 270 340 / 610 Output Total 750 / 1750 500 / 2250 Balance -530 / -1480 -160 / -1640 Weight last 48 hrs Weight 94.256 kg Weight 95.617 kg Physical Exam 2 Narrative: Patient is getting euvolemic A-fib without RVR heart rate fluctuating between 90-1 10 S1, S2 Currently not on oxygen Doing well on room air Afebrile No sign meningitis Distended nontender abdomen Pleasant and cooperative Urinary Catheter Management: Parnell: Cath Placed During This Visit: yes, but has since been removed by the nurse Reason for Continuing Indwelling Catheter: Decision to DC Catheter Urinary Catheter Date of Insertion: 05/27/23 Urinary Catheter Time of Insertion: 11:55 Date Urinary Catheter Removed: 05/28/23 Time Urinary Catheter Discontinued: 12:29 Data 05/29/23 03:43 05/29/23 03:43 Micro: Microbiology 05/27/23 11:07 Blood Culture - Preliminary Blood 05/27/23 10:01 Blood Culture - Preliminary Blood A&P Assessment and plan (1) Alcohol dependence: Qualifiers: Substance use status: unspecified alcohol-induced disorder Qualified Code(s): F10.29 - Alcohol dependence with unspecified alcohol-induced disorder (2) Systolic blood pressure greater than or equal to 140 mm Hg: (3) CHF (congestive heart failure): Qualifiers: Heart failure type: systolic Heart failure chronicity: acute on chronic Qualified Code(s): I50.23 - Acute on chronic systolic (congestive) heart failure (4) Cardiomyopathy: Qualifiers: Cardiomyopathy type: unspecified Qualified Code(s): I42.9 - Cardiomyopathy, unspecified (5) Irregular heart rate: (6) Atrial fibrillation with rapid ventricular response: Plan Plan for angiogram tomorrow N.p.o. after midnight A-fib without RVR Heart rate still fluctuating between 90-1 10 Increase the dose of metoprolol Continue therapeutic Lovenox Full code No fever Leukocytosis improving Attestations 2 Medical Necessity Statement*: Angiogram tomorrow and then possible discharge Diagnoses Alcohol dependence with unspecified alcohol-induced disorder F10.29 Substance use status: unspecified alcohol-induced disorder Systolic blood pressure greater than or equal to 140 mm Hg R03.0 Acute on chronic systolic congestive heart failure I50.23 Heart failure type: systolic Heart failure chronicity: acute on chronic Cardiomyopathy, unspecified type I42.9 Cardiomyopathy type: unspecified Irregular heart rate I49.9 Atrial fibrillation with rapid ventricular response I48.91
[2023-05-29] MEDS: FUROsemide 10 mg/mL SDV 4mL 40 MG IVP (12:12)
[2023-05-29] MEDS: metoprolol tartrate 50 mg Tablet 100 MG PO (20:21)
[2023-05-30] VITALS (9 sets, daily range): BP systolic 109–142; BP diastolic 67–108; PULSE 88–112; RESP 20–24; TEMP 36.6–36.8; O2SAT 85–94
[2023-05-30] MEDS: piperacillin-tazobactam 3.375 GM in sodium chloride 0.9% (plus) 50 ML IV (00:54)
[2023-05-30] MEDS: LORazepam 2 mg Tablet PO (00:54)
[2023-05-30 02:29] LABS: Basophils # 0.1 10^3/uL (0.0-0.1); Basophils % 0.8 %; Eosinophils # 0.3 10^3/uL (0.0-0.8); Eosinophils % 2.5 %; Hematocrit 56.7 % (37-53); Lymphocytes # 1.3 10^3/uL (0.8-4.8); Lymphocytes % 12.7 %; Mean Corpuscular HGB Conc 32.3 g/dL (30-55); Mean Corpuscular Hemoglobin 27.8 pg (27-33); Mean Corpuscular Volume 86.2 fl (82-101); Mean Platelet Volume 12.3 fL (7.4-10.4); Monocytes % 9.3 %; Neutrophils # 7.87 10^3/uL (1.8-7.7); Neutrophils % 74.4 %; Nucleated Red Blood Cells % 0 %; Platelet Count 216 10^3/cmm (157-399); Red Blood Count 6.58 10^6/uL (3.85-5.65); Red Cell Distribution Width 14.7 % (12.1-15.1); White Blood Count 10.56 10^3/uL (3.29-11.43)
[2023-05-30 05:04] LABS: Blood Urea Nitrogen 26 mg/dL (8-23); Calcium 9.7 mg/dL (8.5-10.5); Carbon Dioxide 29 mmol/L (22-29); Chloride 98 mmol/L (98-107); Glucose 99 mg/dL (65-115); Osmolality Calculated 293 mOsm/kg (285-295); Sodium 139 mmol/L (136-145)
[2023-05-30 05:06] LABS: Anion Gap 16.5 (5-19); Potassium 4.5 mmol/L (3.5-5.1)
[2023-05-30] MEDS: ipratropium-albuterol 3 mL Neb INHALATION ×2 (07:44→17:02)
--- NOTE | 2023-05-30 08:38 | PM.PN ---
Subjective Subjective: No patient is doing okay with no chest pain. The shortness of breath is significantly improved. He is remaining afebrile. The white cell count is down. No new symptoms. Telemetry shows atrial fibrillation with a controlled ventricular response rate. Medications: Medication Review Details: Current Medications Acetaminophen (Acetaminophen 325 Mg Tablet) 650 mg PO Q6H PRN PRN Reason: Mild/Mod Pain Or Temp >/= 101 Last Admin: 05/28/23 06:35 Dose: 650 mg Albuterol/Ipratropium (Ipratropium-Albuterol 3 Ml Neb) 3 ml INHALATION Q6H WILL Last Admin: 05/30/23 07:44 Dose: 3 ml Enoxaparin Sodium (Enoxaparin 100 Mg/Ml Syringe) 100 mg 1 mg/kg (100 mg) SUBCUT Q12H [facility] Last Admin: 05/29/23 20:22 Dose: 100 mg Folic Acid (Folic Acid 1 Mg Tablet) 1 mg PO DAILY WILL Last Admin: 05/29/23 08:47 Dose: 1 mg Furosemide (Furosemide 10 Mg/Ml Sdv 4ml) 40 mg IVP Q24H [facility] Last Admin: 05/29/23 12:12 Dose: 40 mg Diltiazem HCl 100 mg/ Sodium (Chloride) 100 mls @ 0 mls/hr IV .Q0M [facility]; Protocol Last Titration: 05/27/23 19:43 Dose: Infused Piperacillin Sod/Tazobactam (Sod 3.375 gm/ Sodium Chloride) 50 mls @ 12.5 mls/hr IV Q8H [facility]; Protocol Last Infusion: 05/30/23 05:17 Dose: Infused Lactulose (Lactulose Oral Liq 20 Gm/30 Ml Udc) 20 gm PO Q6H PRN PRN Reason: constip Lisinopril (Lisinopril 10 Mg Tablet) 10 mg PO DAILY [facility] Last Admin: 05/29/23 08:48 Dose: 10 mg Lorazepam (Lorazepam 2 Mg/Ml Inj 1 Ml) 2 mg IVP PRN PRN; Protocol PRN Reason: WITHDRAWAL Last Admin: 05/27/23 00:34 Dose: 2 mg Metoprolol Tartrate (Metoprolol Tartrate 50 Mg Tablet) 100 mg PO BID@0900,2100 [facility] Last Admin: 05/29/23 20:21 Dose: 100 mg Multivitamins Therapeutic (Multivitamin Therapeutic Tablet) 1 tab PO DAILY [facility] Last Admin: 05/29/23 08:47 Dose: 1 tab Naloxone HCl (Naloxone 0.4 Mg/Ml Sdv) 0.1 mg IVP Q2M PRN PRN Reason: OPIATERV Ondansetron HCl (Ondansetron 2 Mg/Ml Sdv 2 Ml) 4 mg IVP Q8H PRN PRN Reason: vomiting, or N/V if npo Pantoprazole Sodium (Pantoprazole Dr 40 Mg Tablet) 40 mg PO DAILY [facility] Last Admin: 05/29/23 08:48 Dose: 40 mg Potassium Chloride (Potassium Chloride Er 20 Meq Tablet) 40 meq PO DAILY [facility] Last Admin: 05/29/23 08:47 Dose: 40 meq Senna/Docusate Sodium (Sennosides-Docusate Tablet) 1 tab PO BID [facility] Last Admin: 05/29/23 17:14 Dose: Not Given Spironolactone (Spironolactone 25 Mg Tablet) 25 mg PO DAILY [facility] Last Admin: 05/29/23 08:47 Dose: 25 mg Thiamine Mononitrate (Thiamine 100 Mg Tablet) 100 mg PO DAILY [facility] Last Admin: 05/29/23 08:47 Dose: 100 mg Tramadol HCl (Tramadol 50 Mg Tablet) 50 mg PO Q6H PRN PRN Reason: MODERATE PAIN Last Admin: 05/29/23 08:55 Dose: 50 mg Vitals/I&O/Wt Last Vital Signs Temp 98.1 F 05/30/23 07:37 Pulse 112 H 05/30/23 07:51 Resp 20 H 05/30/23 07:44 BP 140/108 05/30/23 07:37 Pulse Ox 94 05/30/23 07:44 O2 Del Method Room Air 05/30/23 07:44 O2 Flow Rate 2 05/30/23 03:14 05/29/23 05/30/23 05/30/23 22:59 06:59 14:59 Intake Total 100 / 1230 Output Total 0 / 375 0 / 375 Balance 0 / 755 100 / 855 Weight last 48 hrs Weight 204 lb Weight 207 lb 12.8 oz Physical Exam Narrative: GENERAL: The patient is alert and oriented times three. Not in any acute distress. Slightly tachypneic HEENT: No significant pallor, icterus or lymphadenopathy.Oral cavity: There are no mucous membrane lesions. NECK: Trachea appears to be central. No masses noted. No JVD or thyromegaly appreciated. RESPIRATORY: Breath sounds are heard bilaterally. No rales or rhonchi. Intensity of the breath sounds are diminished in the bases BREASTS: Deferred. HEART: The heart sounds are normal. No S3 or S4. Short systolic murmur at the base of the heart. No diastolic murmurs. No pericardial rub ABDOMEN: No vessel pulsations or distention. No tenderness. No organomegaly appreciated. Bowel sounds are normally heard. : Deferred. RECTAL: Deferred. LYMPHATIC: No lymphadenopathy noted in the neck. EXTREMITIES: N trace edema with no cyanosis. Good peripheral pulses. MUSCULOSKELETAL: No acute joint deformities or swelling SKIN: There are no significant rashes or ecchymosis NEUROPSYCHIATRIC: The patient is alert and oriented x3. Appears to be in a good mood. No tremors or rigidity noted. Urinary Catheter Management: Parnell: Cath Placed During This Visit: yes, but has since been removed by the nurse Reason for Continuing Indwelling Catheter: Decision to DC Catheter Urinary Catheter Date of Insertion: 05/27/23 Urinary Catheter Time of Insertion: 11:55 Date Urinary Catheter Removed: 05/28/23 Time Urinary Catheter Discontinued: 12:29 Data 05/30/23 01:50 05/30/23 04:14 Other Labs: Laboratory Last Values WBC 10.56 10^3/uL (3.29-11.43) 05/30/23 01:50 RBC 6.58 10^6/uL (3.85-5.65) H 05/30/23 01:50 Hgb 18.30 g/dL (11.27-16.99) H 05/30/23 01:50 Hct 56.7 % (37-53) H 05/30/23 01:50 MCV 86.2 fl (82-101) 05/30/23 01:50 MCH 27.8 pg (27-33) 05/30/23 01:50 MCHC 32.3 g/dL (30-55) 05/30/23 01:50 RDW 14.7 % (12.1-15.1) 05/30/23 01:50 Plt Count 216 10^3/cmm (157-399) 05/30/23 01:50 MPV 12.3 fL (7.4-10.4) H 05/30/23 01:50 Neut % (Auto) 74.4 % 05/30/23 01:50 Lymph % (Auto) 12.7 % 05/30/23 01:50 Martin % (Auto) 9.3 % 05/30/23 01:50 Eos % (Auto) 2.5 % 05/30/23 01:50 Baso % (Auto) 0.8 % 05/30/23 01:50 Neut # (Auto) 7.87 10^3/uL (1.8-7.7) H 05/30/23 01:50 Lymph # (Auto) 1.3 10^3/uL (0.8-4.8) 05/30/23 01:50 Martin # (Auto) 1.0 10^3/uL (0.2-0.9) H 05/30/23 01:50 Eos # (Auto) 0.3 10^3/uL (0.0-0.8) 05/30/23 01:50 Baso # (Auto) 0.1 10^3/uL (0.0-0.1) 05/30/23 01:50 Nucleated RBC % (auto) 0 % 05/30/23 01:50 Nucleated RBCs # 0.0 /100WBC 05/30/23 01:50 PT 15.80 SECONDS (12.1-14.9) H 05/25/23 20:30 INR 1.22 (0.8-1.2) H 05/25/23 20:30 APTT 26.5 SECONDS (23.9-36.7) 05/25/23 20:30 D-Dimer 1.87 ug/mLFEU (0-0.59) H 05/25/23 20:30 Specimen Type Arterial 05/27/23 08:07 Sample Site Radial, left 05/27/23 08:07 ABG pH 7.46 (7.35-7.45) H 05/27/23 08:07 ABG pCO2 41.6 mmHg (35-45) 05/27/23 08:07 ABG pO2 89.3 mmHg (80.0-100.0) 05/27/23 08:07 ABG PO2/FiO2 Ratio 0 05/27/23 08:07 ABG HCO3 29.6 mmol/L (22-26) H 05/27/23 08:07 ABG O2 Saturation 97.5 05/27/23 08:07 ABG Base Excess 5.2 mmol/L (-2.0-2.0) H 05/27/23 08:07 [place] Test Pos 05/27/23 08:07 A-a O2 Gradient 21.4 mmHg (5-10) H 05/27/23 08:07 Hematocrit 48.0 % (42-52) 05/27/23 08:07 Hgb O2 Saturation 96.3 % (95-100) 05/27/23 08:07 Carboxyhemoglobin 1.0 %THgb (0.4-20.1) 05/27/23 08:07 Methemoglobin 0.2 % (0.4-1.5) L 05/27/23 08:07 Total Hemoglobin 15.7 g/dL (14-18) 05/27/23 08:07 Sodium 138.0 mmol/L (131-143) 05/27/23 08:07 Potassium 3.4 mmol/L (3.5-5.0) L 05/27/23 08:07 Glucose 112.0 mg/dL (70-115) 05/27/23 08:07 Ionized Calcium 1.2 mmol/L (1.1-1.4) 05/27/23 08:07 O2 Delivery Device Nc 05/27/23 08:07 O2 Liters/Min 6.0 % 05/27/23 08:07 FiO2 44.0 % 05/27/23 08:07 Stone Rigger ID [place] 05/27/23 08:07 Sodium 139 mmol/L (136-145) 05/30/23 04:14 Potassium 4.5 mmol/L (3.5-5.1) 05/30/23 04:14 Chloride 98 mmol/L (98-107) 05/30/23 04:14 Carbon Dioxide 29 mmol/L (22-29) 05/30/23 04:14 Anion Gap 16.5 (5-19) 05/30/23 04:14 BUN 26 mg/dL (8-23) H 05/30/23 04:14 Creatinine 1.1 mg/dL (0.7-1.2) 05/30/23 04:14 GFR Calculation Not Reportable 05/30/23 04:14 Glucose 99 mg/dL (65-115) 05/30/23 04:14 Calculated Osmolality 293 mOsm/kg (285-295) 05/30/23 04:14 Lactic Acid 0.9 mmol/L (0.5-2.2) 05/27/23 10:01 Calcium 9.7 mg/dL (8.5-10.5) 05/30/23 04:14 Magnesium 1.9 mg/dL (1.7-2.3) 05/26/23 02:20 Total Bilirubin 0.7 mg/dL (0.15-1.2) 05/27/23 03:35 AST 24 U/L (0-40) 05/27/23 03:35 ALT 17 U/L (0-41) 05/27/23 03:35 Alkaline Phosphatase 94 U/L (40-130) 05/27/23 03:35 Ammonia 81 umol/L (16-60) H 05/27/23 03:35 Troponin T Baseline 39 ng/L (0-15) H 05/25/23 20:30 Troponin T 120 Minute 30.29 ng/L (0-15) H 05/25/23 22:18 Delta Troponin T -8.71 ABS# (0-10) L 05/25/23 22:18 Troponin T Hi Sens 6Hr 35.09 ng/L (0-15) H 05/26/23 02:20 Troponin T Hi Sens 6Hr Delta -3.91 ng/L (0-12) L 05/26/23 02:20 NT-Pro-B Natriuret Pep 3144 pg/mL (0-125) H 05/25/23 20:30 Total Protein 7.3 g/dL (6.6-8.7) 05/27/23 03:35 Albumin 3.9 g/dL (3.5-5.2) 05/27/23 03:35 Globulin 3.4 g/dL (1.3-4.6) 05/27/23 03:35 TSH 0.81 uIU/mL (0.27-4.20) 05/26/23 02:20 Urine Color Yellow (Yellow) 05/27/23 11:15 Urine Appearance Clear (CLEAR) 05/27/23 11:15 Urine pH 5 (5-7) 05/27/23 11:15 Ur Specific [place] 1.020 (1.005-1.030) 05/27/23 11:15 Urine Protein 1+ (Negative) H 05/27/23 11:15 Urine Glucose (UA) Norm (Normal) 05/27/23 11:15 Urine Ketones 1+ (Negative) H 05/27/23 11:15 Urine Blood Trace (Negative) H 05/27/23 11:15 Urine Nitrate Negative (Negative) 05/27/23 11:15 Urine Bilirubin Neg (Negative) 05/27/23 11:15 Urine Urobilinogen Norm mg/dL (Negative) 05/27/23 11:15 Ur Leukocyte Esterase Negative (Negative) 05/27/23 11:15 Urine RBC 0-4 /hpf (0-2) H 05/27/23 11:15 Urine WBC 0-4 /hpf (0-5) H 05/27/23 11:15 Ur Squamous Epith Cells 0-4 /hpf (0-5) H 05/27/23 11:15 Amorphous Sediment Not Reportable 05/27/23 11:15 Urine Bacteria Trace /hpf (NONE) 05/27/23 11:15 Urine Mucus 2+ /hpf 05/27/23 11:15 Urine Opiates Screen Negative ng/mL (Negative) 05/26/23 13:40 Ur Barbiturates Screen Negative ng/mL (Negative) 05/26/23 13:40 Ur Phencyclidine Scrn Negative ng/mL (Negative) 05/26/23 13:40 Ur Amphetamines Screen Negative ng/mL (Negative) 05/26/23 13:40 U Benzodiazepines Scrn Negative ng/mL (Negative) 05/26/23 13:40 Urine Cocaine Screen Negative ng/mL (Negative) 05/26/23 13:40 U Marijuana (THC) Screen Negative ng/mL (Negative) 05/26/23 13:40 Ethyl Alcohol < 10 mg/dL (0-10) 05/26/23 02:20 Adenovirus (PCR) Not detected (NOT DETECT) 05/27/23 12:00 C. pneumoniae DNA (PCR) Not detected (NOT DETECT) 05/27/23 12:00 Coronavirus 229E (PCR) Not detected (NOT DETECT) 05/27/23 12:00 Human Metapneumovir PCR Not detected (NOT DETECT) 05/27/23 12:00 Influenza A (H1) PCR Not detected (NOT DETECT) 05/27/23 12:00 Influ A (H1/09) PCR Not detected (NOT DETECT) 05/27/23 12:00 Influenza A (H3) PCR Not detected (NOT DETECT) 05/27/23 12:00 Influenza Type A (PCR) Not detected (NOT DETECT) 05/27/23 12:00 Influenza Type B (PCR) Not detected (NOT DETECT) 05/27/23 12:00 M. pneumoniae (PCR) Not detected (NOT DETECT) 05/27/23 12:00 Parainfluenza 1 (PCR) Not detected (NOT DETECT) 05/27/23 12:00 Parainfluenza 2 (PCR) Not detected (NOT DETECT) 05/27/23 12:00 Parainfluenza 3 (PCR) Not detected (NOT DETECT) 05/27/23 12:00 Parainfluenza 4 (PCR) Not detected (NOT DETECT) 05/27/23 12:00 RSV Type A (PCR) Not detected (NOT DETECT) 05/27/23 12:00 RSV Type B (PCR) Not detected (NOT DETECT) 05/27/23 12:00 Entero/Rhino (PCR) Not detected (NOT DETECT) 05/27/23 12:00 SARS-CoV-2 (PCR) Not detected (NOT DETECT) 05/27/23 12:00 A&P Assessment and plan (1) Atrial fibrillation with rapid ventricular response: The heart rate is under control. The patient has been on Lovenox. It is on hold at this point. (2) Cardiomyopathy: The etiology of the cardiomyopathy is not clear. Possibility of alcoholic cardiomyopathy/arrhythmia induced/ischemia are considerations. In order to further evaluate the coronary status, a cardiac evaluation would be appropriate. This was discussed with the patient in detail with risk and benefits. The risk of bleeding, hematoma, vascular injury, myocardial infarction, myocardial perforation, malignant cardiac arrhythmias ,CVA, renal failure and other concomitant complications were explained in detail. Patient understood this well and consented to proceed. We may go ahead and do made arrangements to have it done today. Qualifiers: Cardiomyopathy type: unspecified Qualified Code(s): I42.9 - Cardiomyopathy, unspecified (3) HTN (hypertension), benign: The blood pressure remains elevated. Antihypertensive medications need to be adjusted. (4) CHF (congestive heart failure): Clinically compensated. Will continue to optimize medications. Qualifiers: Heart failure type: systolic Heart failure chronicity: acute on chronic Qualified Code(s): I50.23 - Acute on chronic systolic (congestive) heart failure (5) Alcohol dependence: Patient strongly advised to quit drinking. Continue on the other supportive measures Qualifiers: Substance use status: unspecified alcohol-induced disorder Qualified Code(s): F10.29 - Alcohol dependence with unspecified alcohol-induced disorder (6) COPD (chronic obstructive pulmonary disease): The symptoms are currently stable. May continue on the current measures. Qualifiers: COPD type: unspecified COPD Qualified Code(s): J44.9 - Chronic obstructive pulmonary disease, unspecified Plan Will go ahead and schedule the angiogram this morning. Based on the results, further recommendations will be made Attestations Medical Necessity Statement*: Patient requires continued hospital stay for close monitoring and further management Coding Level of Care Code 26693 Diagnoses Atrial fibrillation with rapid ventricular response I48.91 Cardiomyopathy, unspecified type I42.9 Cardiomyopathy type: unspecified HTN (hypertension), benign I10 Acute on chronic systolic congestive heart failure I50.23 Heart failure type: systolic Heart failure chronicity: acute on chronic Alcohol dependence with unspecified alcohol-induced disorder F10.29 Substance use status: unspecified alcohol-induced disorder Chronic obstructive pulmonary disease, unspecified COPD type J44.9 COPD type: unspecified COPD
--- NOTE | 2023-05-30 09:26 | W.PM.OPSUD ---
Surgery/Procedure H&P Update DATE OF PROCEDURE: May 30, 2023 DATE H&P PERFORMED: 05/26/23 H&P UPDATE INFORMATION: I have reviewed H&P completed within last 30 days, I have examined patient prior to procedure and No changes to prior documentation CHANGES TO PREVIOUS DOCUMENTATION: Lungs are clear at this time. PRIMARY INDICATION FOR PROCEDURE: Cardiomyopathy and congestive heart failure PLANNED PROCEDURE: Left heart catheterization with left and right coronary angiogram, LV angiogram and possible PCI PATIENT REASSESSED PRIOR TO SEDATION, WITH NO CHANGE NOTED: Yes PHYSICAL EXAM: alert, oriented x 3, clear to auscultation bilaterally and regular rate & rhythm (Irregularly irregular rhythm) AIRWAY EVAL/ANESTHESIA PLAN: normal airway, see other exam findings, ASA III, Monitored Anesthesia and Local Anesthesia
[2023-05-30] MEDS: folic acid 1 mg Tablet PO (09:33)
[2023-05-30] MEDS: lisinopril 10 mg Tablet PO (09:33)
[2023-05-30] MEDS: diphenhydrAMINE 50 mg Capsule PO (09:33)
[2023-05-30] MEDS: potassium chloride ER 20 mEq Tablet 40 MEQ PO (09:33)
[2023-05-30] MEDS: pantoprazole DR 40 mg Tablet PO (09:33)
[2023-05-30] MEDS: multivitamin therapeutic Tablet 1 TAB PO (09:33)
[2023-05-30] MEDS: spironolactone 25 mg Tablet PO (09:33)
[2023-05-30] MEDS: sennosides-docusate Tablet 1 TAB PO (09:33)
[2023-05-30] MEDS: thiamine 100 mg Tablet PO (09:33)
[2023-05-30] MEDS: aspirin 325 mg Tablet PO (09:33)
[2023-05-30] MEDS: metoprolol tartrate 50 mg Tablet 100 MG PO ×2 (09:33→20:13)
[2023-05-30] MEDS: sodium chloride 0.9% 1,000 ML 50 ML IV (09:34)
--- NOTE | 2023-05-30 09:49 | XACV_ITS ---
Exam Room: 2 Ht: 168 cm Wt: 93 kg BSA: 2.11 m2 Gender: Male : 1950 Any Known Allergies: No known allergies Exam Priority: Routine Indication(s): - CHF - Cardiomyopathy - Atrial fibrillation Procedure(s): Procedure Description: Diagnostic procedure Procedure Description: Left Heart Catheterization Procedure Description: Left ventriculography Procedure Description: Coronary Angiography Reynaldo PRATER; Diagnostic Cath Status: Urgent Diagnostic Findings * The left main and extremely short vessel which bifurcates to left anterior descending and circumflex artery. * The left anterior descending artery is a medium caliber vessel which appears to taper off towards the LV apex. The ostium of the left anterior descending artery was found to have around 30% narrowing. The proximal and the mid LAD was found to have minimal intimal regularities with no significant stenotic lesions. The first diagonal branch has a high takeoff and was found to have no significant stenotic lesions.. * The left circumflex artery is a medium caliber vessel and was found to have around 20 to 30% irregular narrowing at the proximal to the mid segment. No significant stenotic lesions were noted.. * The right coronary artery is a medium caliber dominant vessel which was found to have some ectasia proximally with minimal intimal irregularities. No significant stenotic lesions were noted. * No disease noted in the Left Main, Left Anterior Descending, Right, or Circumflex coronary arteries. * Coronary angiography shows right dominance. Conclusions 1. 73-year-old white male, with a history of alcohol abuse and high blood pressure, presenting with progressive shortness of breath. He was found to be in atrial fibrillation rapid ventricular rate and congestive heart failure.. The LV ejection fraction was around 40% by echocardiogram. For further evaluation of his coronary status, echocardiogram with exertion was recommended. Patient underwent left heart catheterization with left and right coronary angiogram and LV angiogram today. The findings are as follows.. 2. Mild diffuse coronary artery disease. Features of nonischemic cardiomyopathy with an ejection fraction of 35%. LVEDP 11 mmHg. Recommendations * Continue current medical management and risk factor modification. Diagnostic RX Recommendation: medical therapy and/or counseling LV EDP: 11 mmHg Ventriculography Ejection Fraction: 35.0 % Left Ventriculography Findings: * The LV gram was performed in the MALAGON projection. The LV cavity appears to be of normal size. There was diffuse hypokinesia of the left-ventricle with an ejection fraction of around 35%. No filling defects were noted. Mild to moderate mitral regurgitation was noted. Pressures Phase:Rest AO : / ( -9 ) @ 2:23:00 PM 0 / -2 ( -1 ) @ 2:31:00 PM 96 / 83 ( 88 ) @ 2:36:00 PM 94 / 81 ( 86 ) @ 2:37:00 PM / ( 3 ) @ 2:39:00 PM 97 / -4 ( 14 ) @ 2:40:00 PM 116 / 88 ( 94 ) @ 2:44:00 PM 125 / 83 ( 98 ) @ 2:44:00 PM 120 / 84 ( 96 ) @ 2:45:00 PM LV : 120 / 4 / 11 @ 2:43:00 PM 112 / 3 / 12 @ 2:44:00 PM 117 / 4 / 11 @ 2:44:00 PM Valves Phase:DefaultPhase AV : 6.0 @ 2:53:04 PM AV Mean Gradient: 11.0 @ 2:53:04 PM 11.0 @ 2:53:04 PM Clinical Evaluation EBL: 5mL-10mL Procedural Details Procedure Consent Obtained. Admit Source: In Patient. Pre-Procedure Time Out. Identified patient by full name and date of as verbalized by the patient/guarantor. Does the consent match the physician's order: Yes. Accurate & Complete Informed Consent: Yes. Inpatient/Outpatient History & Physical on Chart: Yes. If H&P is completed, is and addenduem needed: No; If yes, is the addendum complete: N/A. Visualize and Verify Site with Patient/Guarantor: N/A. Relevant Radiology Images available: N/A. The risks, benefits, and alternatives of sedation and/or procedure were discussed by physician. The patient agrees to continue. Procedure started. IV from floor is infiltrated. Removed from right forearm. A 20 gauge IV was started in the right upper arml using aseptic technique. IV Fluids: 0.9% NaCl at KVO. 300 mL infused prior to qc lab technician. [facility] Clinical Fraility Score: 3: Managing Well. 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 Chest Pain Symptom Assessment: Atypical Angina. Cardiovascular Instability: No, stable. Correct patient, site and procedure confirmed by cath team. Current diagnosis: Stable angina. PERRLA. Strong, equal hand cytology technologist bilaterally. Lungs clear x 5 lobes. Pre Procedural Pulses: bilateral posterior tibial was Doppled. Pre Procedural Pulses: bilateral dorsalis pedis was Doppled. Pre Procedural Pulses: bilateral radial was 3+. Oxygen started at 3liters/min via nasal canula. right groin was prepped with chloroprep then draped in the usual sterile fashion. right radial was prepped with chloroprep then draped in the usual sterile fashion. Physician notified. Baseline sample Acquired. HR: 104 BPM. Physician arrived. Physician scrubbed in. Immediate Pre-Procedure Time Out. Correct Patient: Yes; Correct Procedure: Yes; Correct Site: Yes; Correct Patient Position: Yes; Correct Supplies: Yes; Dried Flammable Prep: Yes; Blood Products Available: N/A;. Lidocaine 1% infiltrated to the right radial. Arterial access obtained. A 5 [place] Sanjay catheter in over wire. Wire removed. Hand injection of right subclavian done by . Echange wire reinserted. Unable to advance the catheter. Wire and catheter removed over the wire. A TR Band was successful obtaining hemostatsis at the Right Radial artery insertion site. TR band placed. Hemostasis obtained. Lidocaine 1% infiltrated to the right groin. Arterial access obtained with micropuncture set. A 5 [place] JL4 catheter in over standard wire. Multiple views taken of left coronary artery. Catheter removed over the standard wire. A 5 [place] JR4 catheter in over wire. Multiple views taken of right coronary artery. Catheter removed over the standard wire. A 5 [place] Angled Pig catheter in over wire. Current Diagnosis : Chest Pain. EDP Sample taken: LV 120/4,11; HR: 96 BPM; SpO2: 96%. LV gram performed in MALAGON @ 10 mL/second for a total of 30 mL. Patient EF: Abnormal. EDP Sample taken: LV 112/3,12; HR: 101 BPM; SpO2: 94%. Pullback taken: LV 117/4,11; AO 116/88(94); Mean: 11mmHg, Peak to Peak: 6mmHg, SEP: 17sec/min; HR: 99 BPM; SpO2: 90%. Physician review of films. Catheter removed over the wire. Physician scrubbed out. A Suture was successful obtaining hemostatsis at the Right Femoral artery insertion site. Sheath(s) sutured into position with 2-0 silk and sterile 4x4's and Op-site applied over the site. No oozing or signs and symptoms of hematoma noted. Arterial sheath flushed and connected to tranducer and pressure bag with heparinized saline. Post Procedure: Pulses reassessed and unchanged. PERRLA. Strong, equal hand cytology technologist bilaterally. No VTE prophylaxis required. Medication waste: 75 mcg Fentanyl, Heparin 4000 units, 49.8 mg nitro. Total IV fluids: 61 mL. Fluoro: 6:05. Contrast type used: Omnipaque 300 mg/mL, 150 mL bottle. [id number]. Post-op diagnosis: Mild CAD; Cardiomyopathy. Complications: None. Estimated blood loss: 5mL-10mL. Responsiveness - Normal response to verbal stimuli; alert and oriented, PERRLA. Airway - Unaffected, no intervention required; spontaneous ventilation. Circulation: W/N/L, pulses unchanged. Nausea/Vomiting: No. Procedure completed. Patient transferred by bed to 1st floor. Vital chart was stopped. Access Site Site: Right Radial artery Sheath Size: 6 Fr Hemostasis Method: TR Band Hemostasis Success: Successful Site: Right Femoral artery Sheath Size: 5 Fr Hemostasis Method: Suture Hemostasis Success: Successful Procedure Medications Start: 2:17 PM Stop: 2:17 PM Medication: Versed 1 mg and Fentanyl 25 mcg Amount: 1 Route: I.V. Start: 2:20 PM Stop: 2:20 PM Medication: Verapamil Amount: 5 mg Route: I.A. Start: 2:20 PM Stop: 2:20 PM Medication: Nitrogylcerin Amount: 200 mcg Route: I.A. Start: 2:31 PM Stop: 2:31 PM Medication: Versed Amount: 1 mg Route: I.V. I, the attending physician, have reviewed and verified all procedure medications. Yes, all medications given per verbal order History/Risk Factors Hypertension: Yes Dyslipidemia: No Peripheral Arterial Disease (PAD): No Myocardial Infarction (PA): No Obesity: No Renal Disease: No Tobacco Use: Former Prior Interventions PCI: No CABG: No Valve Surgery: No Report Signatures Finalized by Dr Jl Jacobs MD [facility] on 05/30/2023 04:11 PM
--- NOTE | 2023-05-30 09:51 | P.PN_ITS ---
Subjective 2 Subjective: Plan for angiogram today Patient is stating that he is sick of staying in the hospital He was confused last night required benzodiazepine This morning he is awake and alert No active complaints No active headache or signs of confusion no signs of stroke Vitals/I&O/Wt Last Vital Signs Temp 98.1 F 05/30/23 07:37 Pulse 112 H 05/30/23 07:51 Resp 20 H 05/30/23 07:44 BP 140/108 05/30/23 07:37 Pulse Ox 94 05/30/23 07:44 O2 Del Method Room Air 05/30/23 07:44 O2 Flow Rate 2 05/30/23 03:14 05/29/23 05/30/23 05/30/23 22:59 06:59 14:59 Intake Total 100 / 1230 Output Total 0 / 375 0 / 375 Balance 0 / 755 100 / 855 Weight last 48 hrs Weight 92.533 kg Weight 94.256 kg Physical Exam 2 Narrative: Getting euvolemic Currently on room air GCS 15 Pleasant and calm Nonfocal neuroexam Seems depressed S1, S2 Sinus overload improving No active confusion at all Urinary Catheter Management: Parnell: Cath Placed During This Visit: yes, but has since been removed by the nurse Reason for Continuing Indwelling Catheter: Decision to DC Catheter Urinary Catheter Date of Insertion: 05/27/23 Urinary Catheter Time of Insertion: 11:55 Date Urinary Catheter Removed: 05/28/23 Time Urinary Catheter Discontinued: 12:29 Data 05/30/23 01:50 05/30/23 04:14 A&P Assessment and plan (1) Alcohol dependence: Qualifiers: Substance use status: unspecified alcohol-induced disorder Qualified Code(s): F10.29 - Alcohol dependence with unspecified alcohol-induced disorder (2) HTN (hypertension), benign: (3) Systolic blood pressure greater than or equal to 140 mm Hg: (4) CHF (congestive heart failure): Qualifiers: Heart failure type: systolic Heart failure chronicity: acute on chronic Qualified Code(s): I50.23 - Acute on chronic systolic (congestive) heart failure (5) Cardiomyopathy: Qualifiers: Cardiomyopathy type: unspecified Qualified Code(s): I42.9 - Cardiomyopathy, unspecified (6) Irregular heart rate: (7) Atrial fibrillation with rapid ventricular response: Plan New onset A-fib New onset CHF Alcohol dependency Patient suffers from [facility] related delirium Continue thiamine and folic acid Plan for angiogram today to rule out cause of cardiomyopathy Optimization of medications to control heart rate Patient will need Eliquis at the time of discharge Patient spiked fever once, no recurrence of fever respiratory panel negative Chest x-ray did not show pneumonia I do not suspect any meningitis or signs of stroke Blood cultures negative Leukocytosis improved Continue diuresis Plan to discharge later today versus tomorrow Attestations 2 Medical Necessity Statement*: Discharge later today versus tomorrow Coding Level of Care Code Acute Code for Chg Fwd Diagnoses Alcohol dependence with unspecified alcohol-induced disorder F10.29 Substance use status: unspecified alcohol-induced disorder HTN (hypertension), benign I10 Systolic blood pressure greater than or equal to 140 mm Hg R03.0 Acute on chronic systolic congestive heart failure I50.23 Heart failure type: systolic Heart failure chronicity: acute on chronic Cardiomyopathy, unspecified type I42.9 Cardiomyopathy type: unspecified Irregular heart rate I49.9 Atrial fibrillation with rapid ventricular response I48.91
[2023-05-30] MEDS: FUROsemide 10 mg/mL SDV 4mL 40 MG IVP (10:40)
[2023-05-30] MEDS: hyDRALAzine 25 mg Tablet PO ×2 (10:40→20:13)
--- NOTE | 2023-05-30 11:43 | PC.SOCIAL ---
IMM updated IMM dated and initialed, copy given to patient and copy placed in chart.
--- NOTE | 2023-05-30 13:49 | PC.NURSE ---
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
[2023-05-30] MEDS: enoxaparin 100 mg/mL Syringe SUBCUT (20:12)
[2023-05-30] MEDS: quetiapine 25 mg Tablet PO (20:16)
[2023-05-31] VITALS (7 sets, daily range): BP systolic 101–121; BP diastolic 65–78; PULSE 82–96; RESP 18–42; TEMP 36.4–36.8; O2SAT 82–92
[2023-05-31 04:41] LABS: Basophils # 0.1 10^3/uL (0.0-0.1); Basophils % 0.8 %; Eosinophils # 0.4 10^3/uL (0.0-0.8); Eosinophils % 3.4 %; Hematocrit 54.7 % (37-53); Lymphocytes # 1.9 10^3/uL (0.8-4.8); Lymphocytes % 17.2 %; Mean Corpuscular HGB Conc 30.9 g/dL (30-55); Mean Corpuscular Hemoglobin 27.2 pg (27-33); Mean Corpuscular Volume 88.1 fl (82-101); Mean Platelet Volume 9.6 fL (7.4-10.4); Monocytes % 9.2 %; Neutrophils # 7.54 10^3/uL (1.8-7.7); Neutrophils % 69.1 %; Nucleated Red Blood Cells % 0 %; Platelet Count 339 10^3/cmm (157-399); Red Blood Count 6.21 10^6/uL (3.85-5.65); Red Cell Distribution Width 14.1 % (12.1-15.1)
[2023-05-31 05:02] LABS: Anion Gap 15.7 (5-19); Blood Urea Nitrogen 33 mg/dL (8-23); Calcium 9.7 mg/dL (8.5-10.5); Carbon Dioxide 28 mmol/L (22-29); Chloride 103 mmol/L (98-107); Creatinine Clr Calc Pharmacy 63.1827; Glucose 86 mg/dL (65-115); Osmolality Calculated 301 mOsm/kg (285-295); Potassium 4.7 mmol/L (3.5-5.1); Sodium 142 mmol/L (136-145)
[2023-05-31] MEDS: ipratropium-albuterol 3 mL Neb INHALATION (08:07)
--- NOTE | 2023-05-31 09:27 | P.PN_ITS ---
Subjective 2 Subjective: Patient had the cardiac catheterization yesterday. He was found to have mild coronary artery disease. Residual LV ejection fraction was around 35%. The features are consistent with a nonischemic cardiomyopathy. Medications: Medication Review Details: Current Medications Acetaminophen (Acetaminophen 325 Mg Tablet) 650 mg PO Q6H PRN PRN Reason: Mild/Mod Pain Or Temp >/= 101 Last Admin: 05/28/23 06:35 Dose: 650 mg Al Hydrox/Mg Hydrox/Simethicone (Ujro-Lug-Vnjnukwip-Gayle 30 Ml Udc) 30 ml PO Q15M PRN PRN Reason: INDIGESTION Albuterol/Ipratropium (Ipratropium-Albuterol 3 Ml Neb) 3 ml INHALATION Q6H [facility] Last Admin: 05/31/23 08:07 Dose: 3 ml Atropine Sulfate (Atropine 1 Mg/Ml Sdv 1 Ml) 0.5 mg IVP PRN PRN PRN Reason: Symptomatic bradycardia Enoxaparin Sodium (Enoxaparin 100 Mg/Ml Syringe) 100 mg 1 mg/kg (100 mg) SUBCUT Q12H [facility] Last Admin: 05/30/23 20:12 Dose: 100 mg Folic Acid (Folic Acid 1 Mg Tablet) 1 mg PO DAILY [facility] Last Admin: 05/30/23 09:33 Dose: 1 mg Furosemide (Furosemide 10 Mg/Ml Sdv 4ml) 40 mg IVP Q24H [facility] Last Admin: 05/30/23 10:40 Dose: 40 mg Hydralazine HCl (Hydralazine 25 Mg Tablet) 25 mg PO TID [facility] Last Admin: 05/30/23 20:13 Dose: 25 mg Diltiazem HCl 100 mg/ Sodium (Chloride) 100 mls @ 0 mls/hr IV .Q0M [facility]; Protocol Last Titration: 05/27/23 19:43 Dose: Infused Lactulose (Lactulose Oral Liq 20 Gm/30 Ml Udc) 20 gm PO Q6H PRN PRN Reason: constip Losartan Potassium (Losartan 50 Mg Tablet) 25 mg PO DAILY [facility] Magnesium Hydroxide (Magnesium Hydroxide 30 Ml Udc) 30 ml PO DAILY PRN PRN Reason: CONSTIPATION Metoprolol Tartrate (Metoprolol Tartrate 50 Mg Tablet) 100 mg PO BID@0900,2100 [facility] Last Admin: 05/30/23 20:13 Dose: 100 mg Multivitamins Therapeutic (Multivitamin Therapeutic Tablet) 1 tab PO DAILY [facility] Last Admin: 05/30/23 09:33 Dose: 1 tab Naloxone HCl (Naloxone 0.4 Mg/Ml Sdv) 0.1 mg IVP Q2M PRN PRN Reason: OPIATERV Nitroglycerin (Nitroglycerin 0.4 Mg Sublingual Tablet) 0.4 mg SUBLINGUAL Q5M PRN PRN Reason: CHEST PAIN Ondansetron HCl (Ondansetron 2 Mg/Ml Sdv 2 Ml) 4 mg IVP Q8H PRN PRN Reason: vomiting, or N/V if npo Pantoprazole Sodium (Pantoprazole Dr 40 Mg Tablet) 40 mg PO DAILY [facility] Last Admin: 05/30/23 09:33 Dose: 40 mg Potassium Chloride (Potassium Chloride Er 20 Meq Tablet) 40 meq PO DAILY [facility] Last Admin: 05/30/23 09:33 Dose: 40 meq Quetiapine Fumarate (Quetiapine 25 Mg Tablet) 25 mg PO BEDTIME [facility] Last Admin: 05/30/23 20:16 Dose: 25 mg Senna/Docusate Sodium (Sennosides-Docusate Tablet) 1 tab PO BID [facility] Last Admin: 05/30/23 18:26 Dose: Not Given Spironolactone (Spironolactone 25 Mg Tablet) 25 mg PO DAILY [facility] Last Admin: 05/30/23 09:33 Dose: 25 mg Thiamine Mononitrate (Thiamine 100 Mg Tablet) 100 mg PO DAILY [facility] Last Admin: 05/30/23 09:33 Dose: 100 mg Tramadol HCl (Tramadol 50 Mg Tablet) 50 mg PO Q6H PRN PRN Reason: MODERATE PAIN Last Admin: 05/29/23 08:55 Dose: 50 mg Vitals/I&O/Wt Last Vital Signs Temp 97.6 F 05/31/23 03:02 Pulse 92 05/31/23 08:14 Resp 18 05/31/23 08:08 BP 121/78 05/31/23 03:02 Pulse Ox 92 05/31/23 08:08 O2 Del Method Room Air 05/31/23 08:08 O2 Flow Rate 2 05/30/23 03:14 05/30/23 05/31/23 05/31/23 22:59 06:59 14:59 Intake Total 490 / 490 1500 / 1990 Output Total 350 / 350 125 / 475 Balance 140 / 140 1375 / 1515 Weight last 48 hrs Weight 206 lb 14.4 oz Weight 204 lb Physical Exam 2 Narrative: GENERAL: The patient is alert and oriented times three. Not in any acute distress. Slightly tachypneic HEENT: No significant pallor, icterus or lymphadenopathy.Oral cavity: There are no mucous membrane lesions. NECK: Trachea appears to be central. No masses noted. No JVD or thyromegaly appreciated. RESPIRATORY: Breath sounds are heard bilaterally. No rales or rhonchi. Intensity of the breath sounds are diminished in the bases BREASTS: Deferred. HEART: The heart sounds are normal. No S3 or S4. Short systolic murmur at the base of the heart. No diastolic murmurs. No pericardial rub ABDOMEN: No vessel pulsations or distention. No tenderness. No organomegaly appreciated. Bowel sounds are normally heard. : Deferred. RECTAL: Deferred. LYMPHATIC: No lymphadenopathy noted in the neck. EXTREMITIES: N trace edema with no cyanosis. Good peripheral pulses. MUSCULOSKELETAL: No acute joint deformities or swelling SKIN: There are no significant rashes or ecchymosis NEUROPSYCHIATRIC: The patient is alert and oriented x3. Appears to be in a good mood. No tremors or rigidity noted. Urinary Catheter Management: Parnell: Cath Placed During This Visit: yes, but has since been removed by the nurse Reason for Continuing Indwelling Catheter: Decision to DC Catheter Urinary Catheter Date of Insertion: 05/27/23 Urinary Catheter Time of Insertion: 11:55 Date Urinary Catheter Removed: 05/28/23 Time Urinary Catheter Discontinued: 12:29 Data 05/31/23 03:47 05/31/23 03:47 Other Labs: Laboratory Last Values WBC 10.90 10^3/uL (3.29-11.43) 05/31/23 03:47 RBC 6.21 10^6/uL (3.85-5.65) H 05/31/23 03:47 Hgb 16.90 g/dL (11.27-16.99) 05/31/23 03:47 Hct 54.7 % (37-53) H 05/31/23 03:47 MCV 88.1 fl (82-101) 05/31/23 03:47 MCH 27.2 pg (27-33) 05/31/23 03:47 MCHC 30.9 g/dL (30-55) 05/31/23 03:47 RDW 14.1 % (12.1-15.1) 05/31/23 03:47 Plt Count 339 10^3/cmm (157-399) D 05/31/23 03:47 MPV 9.6 fL (7.4-10.4) 05/31/23 03:47 Neut % (Auto) 69.1 % 05/31/23 03:47 Lymph % (Auto) 17.2 % 05/31/23 03:47 [place] % (Auto) 9.2 % 05/31/23 03:47 Eos % (Auto) 3.4 % 05/31/23 03:47 Baso % (Auto) 0.8 % 05/31/23 03:47 Neut # (Auto) 7.54 10^3/uL (1.8-7.7) 05/31/23 03:47 Lymph # (Auto) 1.9 10^3/uL (0.8-4.8) 05/31/23 03:47 [place] # (Auto) 1.0 10^3/uL (0.2-0.9) H 05/31/23 03:47 Eos # (Auto) 0.4 10^3/uL (0.0-0.8) 05/31/23 03:47 Baso # (Auto) 0.1 10^3/uL (0.0-0.1) 05/31/23 03:47 Nucleated RBC % (auto) 0 % 05/31/23 03:47 Nucleated RBCs # 0.0 /100WBC 05/31/23 03:47 PT 15.80 SECONDS (12.1-14.9) H 05/25/23 20:30 INR 1.22 (0.8-1.2) H 05/25/23 20:30 APTT 26.5 SECONDS (23.9-36.7) 05/25/23 20:30 D-Dimer 1.87 ug/mLFEU (0-0.59) H 05/25/23 20:30 Specimen Type Arterial 05/27/23 08:07 Sample Site Radial, left 05/27/23 08:07 ABG pH 7.46 (7.35-7.45) H 05/27/23 08:07 ABG pCO2 41.6 mmHg (35-45) 05/27/23 08:07 ABG pO2 89.3 mmHg (80.0-100.0) 05/27/23 08:07 ABG PO2/FiO2 Ratio 0 05/27/23 08:07 ABG HCO3 29.6 mmol/L (22-26) H 05/27/23 08:07 ABG O2 Saturation 97.5 05/27/23 08:07 ABG Base Excess 5.2 mmol/L (-2.0-2.0) H 05/27/23 08:07 [place] Test Pos 05/27/23 08:07 A-a O2 Gradient 21.4 mmHg (5-10) H 05/27/23 08:07 Hematocrit 48.0 % (42-52) 05/27/23 08:07 Hgb O2 Saturation 96.3 % (95-100) 05/27/23 08:07 Carboxyhemoglobin 1.0 %THgb (0.4-20.1) 05/27/23 08:07 Methemoglobin 0.2 % (0.4-1.5) L 05/27/23 08:07 Total Hemoglobin 15.7 g/dL (14-18) 05/27/23 08:07 Sodium 138.0 mmol/L (131-143) 05/27/23 08:07 Potassium 3.4 mmol/L (3.5-5.0) L 05/27/23 08:07 Glucose 112.0 mg/dL (70-115) 05/27/23 08:07 Ionized Calcium 1.2 mmol/L (1.1-1.4) 05/27/23 08:07 O2 Delivery Device Nc 05/27/23 08:07 O2 Liters/Min 6.0 % 05/27/23 08:07 FiO2 44.0 % 05/27/23 08:07 Diver Pumper ID [place] 05/27/23 08:07 Sodium 142 mmol/L (136-145) 05/31/23 03:47 Potassium 4.7 mmol/L (3.5-5.1) 05/31/23 03:47 Chloride 103 mmol/L (98-107) 05/31/23 03:47 Carbon Dioxide 28 mmol/L (22-29) 05/31/23 03:47 Anion Gap 15.7 (5-19) 05/31/23 03:47 BUN 33 mg/dL (8-23) H 05/31/23 03:47 Creatinine 1.1 mg/dL (0.7-1.2) 05/31/23 03:47 GFR Calculation Not Reportable 05/31/23 03:47 Glucose 86 mg/dL (65-115) 05/31/23 03:47 Calculated Osmolality 301 mOsm/kg (285-295) H 05/31/23 03:47 Lactic Acid 0.9 mmol/L (0.5-2.2) 05/27/23 10:01 Calcium 9.7 mg/dL (8.5-10.5) 05/31/23 03:47 Magnesium 1.9 mg/dL (1.7-2.3) 05/26/23 02:20 Total Bilirubin 0.7 mg/dL (0.15-1.2) 05/27/23 03:35 AST 24 U/L (0-40) 05/27/23 03:35 ALT 17 U/L (0-41) 05/27/23 03:35 Alkaline Phosphatase 94 U/L (40-130) 05/27/23 03:35 Ammonia 81 umol/L (16-60) H 05/27/23 03:35 Troponin T Baseline 39 ng/L (0-15) H 05/25/23 20:30 Troponin T 120 Minute 30.29 ng/L (0-15) H 05/25/23 22:18 Delta Troponin T -8.71 ABS# (0-10) L 05/25/23 22:18 Troponin T Hi Sens 6Hr 35.09 ng/L (0-15) H 05/26/23 02:20 Troponin T Hi Sens 6Hr Delta -3.91 ng/L (0-12) L 05/26/23 02:20 NT-Pro-B Natriuret Pep 3144 pg/mL (0-125) H 05/25/23 20:30 Total Protein 7.3 g/dL (6.6-8.7) 05/27/23 03:35 Albumin 3.9 g/dL (3.5-5.2) 05/27/23 03:35 Globulin 3.4 g/dL (1.3-4.6) 05/27/23 03:35 TSH 0.81 uIU/mL (0.27-4.20) 05/26/23 02:20 Urine Color Yellow (Yellow) 05/27/23 11:15 Urine Appearance Clear (CLEAR) 05/27/23 11:15 Urine pH 5 (5-7) 05/27/23 11:15 Ur Specific [place] 1.020 (1.005-1.030) 05/27/23 11:15 Urine Protein 1+ (Negative) H 05/27/23 11:15 Urine Glucose (UA) Norm (Normal) 05/27/23 11:15 Urine Ketones 1+ (Negative) H 05/27/23 11:15 Urine Blood Trace (Negative) H 05/27/23 11:15 Urine Nitrate Negative (Negative) 05/27/23 11:15 Urine Bilirubin Neg (Negative) 05/27/23 11:15 Urine Urobilinogen Norm mg/dL (Negative) 05/27/23 11:15 Ur Leukocyte Esterase Negative (Negative) 05/27/23 11:15 Urine RBC 0-4 /hpf (0-2) H 05/27/23 11:15 Urine WBC 0-4 /hpf (0-5) H 05/27/23 11:15 Ur Squamous Epith Cells 0-4 /hpf (0-5) H 05/27/23 11:15 Amorphous Sediment Not Reportable 05/27/23 11:15 Urine Bacteria Trace /hpf (NONE) 05/27/23 11:15 Urine Mucus 2+ /hpf 05/27/23 11:15 Urine Opiates Screen Negative ng/mL (Negative) 05/26/23 13:40 Ur Barbiturates Screen Negative ng/mL (Negative) 05/26/23 13:40 Ur Phencyclidine Scrn Negative ng/mL (Negative) 05/26/23 13:40 Ur Amphetamines Screen Negative ng/mL (Negative) 05/26/23 13:40 U Benzodiazepines Scrn Negative ng/mL (Negative) 05/26/23 13:40 Urine Cocaine Screen Negative ng/mL (Negative) 05/26/23 13:40 U Marijuana (THC) Screen Negative ng/mL (Negative) 05/26/23 13:40 Ethyl Alcohol < 10 mg/dL (0-10) 05/26/23 02:20 Adenovirus (PCR) Not detected (NOT DETECT) 05/27/23 12:00 C. pneumoniae DNA (PCR) Not detected (NOT DETECT) 05/27/23 12:00 Coronavirus 229E (PCR) Not detected (NOT DETECT) 05/27/23 12:00 Human Metapneumovir PCR Not detected (NOT DETECT) 05/27/23 12:00 Influenza A (H1) PCR Not detected (NOT DETECT) 05/27/23 12:00 Influ A (H1/09) PCR Not detected (NOT DETECT) 05/27/23 12:00 Influenza A (H3) PCR Not detected (NOT DETECT) 05/27/23 12:00 Influenza Type A (PCR) Not detected (NOT DETECT) 05/27/23 12:00 Influenza Type B (PCR) Not detected (NOT DETECT) 05/27/23 12:00 M. pneumoniae (PCR) Not detected (NOT DETECT) 05/27/23 12:00 Parainfluenza 1 (PCR) Not detected (NOT DETECT) 05/27/23 12:00 Parainfluenza 2 (PCR) Not detected (NOT DETECT) 05/27/23 12:00 Parainfluenza 3 (PCR) Not detected (NOT DETECT) 05/27/23 12:00 Parainfluenza 4 (PCR) Not detected (NOT DETECT) 05/27/23 12:00 RSV Type A (PCR) Not detected (NOT DETECT) 05/27/23 12:00 RSV Type B (PCR) Not detected (NOT DETECT) 05/27/23 12:00 Entero/Rhino (PCR) Not detected (NOT DETECT) 05/27/23 12:00 SARS-CoV-2 (PCR) Not detected (NOT DETECT) 05/27/23 12:00 A&P Assessment and plan (1) Atrial fibrillation with rapid ventricular response: The ventricular response rate is under control. Patient may be placed back on the Eliquis. (2) Non-ischemic cardiomyopathy: Because of the LV systolic dysfunction, patient carries a higher risk for malignant ventricular arrhythmia. He may benefit from LifeVest. This was discussed with the patient detail which is understood well. Patient is agreeable. I will go ahead and order this which may be delivered to his house (3) HTN (hypertension), benign: Currently normotensive. May continue on the current medications (4) CHF (congestive heart failure): May continue the low-dose of Lasix and spironolactone. Qualifiers: Heart failure chronicity: acute on chronic Heart failure type: systolic Qualified Code(s): I50.23 - Acute on chronic systolic (congestive) heart failure (5) Alcohol dependence: Patient strongly advised to quit drinking. Continue on the other supportive measures Qualifiers: Substance use status: unspecified alcohol-induced disorder Qualified Code(s): F10.29 - Alcohol dependence with unspecified alcohol-induced disorder (6) COPD (chronic obstructive pulmonary disease): The symptoms are currently stable. May continue on the current measures. Qualifiers: COPD type: unspecified COPD Qualified Code(s): J44.9 - Chronic obstructive pulmonary disease, unspecified Plan If the patient continues to remain stable, may be discharged home today. Continue on the metoprolol, losartan, Lasix, spironolactone. We may consider Entresto as outpatient. Ordered for LifeVest Attestations 2 Medical Necessity Statement*: Deferred to the primary Coding Level of Care Code 39167 Diagnoses Atrial fibrillation with rapid ventricular response I48.91 Non-ischemic cardiomyopathy I42.8 HTN (hypertension), benign I10 Acute on chronic systolic congestive heart failure I50.23 Heart failure chronicity: acute on chronic Heart failure type: systolic Alcohol dependence with unspecified alcohol-induced disorder F10.29 Substance use status: unspecified alcohol-induced disorder Chronic obstructive pulmonary disease, unspecified COPD type J44.9 COPD type: unspecified COPD
[2023-05-31] MEDS: pantoprazole DR 40 mg Tablet PO (10:03)
[2023-05-31] MEDS: hyDRALAzine 25 mg Tablet PO (10:03)
[2023-05-31] MEDS: metoprolol tartrate 50 mg Tablet 100 MG PO (10:03)
[2023-05-31] MEDS: sennosides-docusate Tablet 1 TAB PO (10:03)
[2023-05-31] MEDS: thiamine 100 mg Tablet PO (10:04)
[2023-05-31] MEDS: folic acid 1 mg Tablet PO (10:04)
[2023-05-31] MEDS: potassium chloride ER 20 mEq Tablet 40 MEQ PO (10:04)
[2023-05-31] MEDS: spironolactone 25 mg Tablet PO (10:05)
[2023-05-31] MEDS: multivitamin therapeutic Tablet 1 TAB PO (10:05)
[2023-05-31] MEDS: FUROsemide 10 mg/mL SDV 4mL 40 MG IVP (10:13)
--- NOTE | 2023-05-31 10:26 | PM.DCS ---
Discharge Providers Date of Admission: 05/25/23 23:37 Date of Discharge: May 31, 2023 Attending Provider at Admission: Kelly Schmitt MD Attending Provider at Discharge: Aravind Arguelles MD Primary Care Provider: Cynthia Hartmann NP Diagnoses at Discharge Discharge Diagnosis (1) Atrial fibrillation with rapid ventricular response: Status: Acute (2) Cardiomyopathy: Status: Acute Qualifiers: Cardiomyopathy type: unspecified Qualified Code(s): I42.9 - Cardiomyopathy, unspecified (3) HTN (hypertension), benign: Status: Acute (4) CHF (congestive heart failure): Status: Acute Qualifiers: Heart failure type: systolic Heart failure chronicity: acute on chronic Qualified Code(s): I50.23 - Acute on chronic systolic (congestive) heart failure (5) Alcohol dependence: Status: Acute Qualifiers: Substance use status: unspecified alcohol-induced disorder Qualified Code(s): F10.29 - Alcohol dependence with unspecified alcohol-induced disorder (6) COPD (chronic obstructive pulmonary disease): Status: Acute Qualifiers: COPD type: unspecified COPD Qualified Code(s): J44.9 - Chronic obstructive pulmonary disease, unspecified Reason for Visit Reason for Visit: SOB Hospital Course Hospital Course 73-year-old male who was admitted for management evaluation of new onset heart failure and new onset A-fib with RVR he was put on Cardizem drip initially which we were able to titrate off and start him on Cardizem p.o. medication, his echo showed reduced ejection fraction, cardiology was consulted patient went for ischemic workup, hospitalization was complicated due to fever and leukocytosis however no active source of infection and the fact he only had isolated episode of febrile events, patient went for ischemic workup which did not show any coronary artery disease secondary to the point where he would require intervention, he has alcohol induced cardiomyopathy, we have arranged LifeVest patient is very upset and stating that we are keeping him in the hospital in order to make more money he is not willing to stay to get LifeVest, I have informed Dr. Jacobs, we have decided to arrange LifeVest and have it shipped to his home address. Patient will need Entresto in future which will be optimized by the postal service mail processor, will give him cardiology referral. Physical Exam Narrative: Signs of fluid overload improved A-fib without RVR GCS 15 Pleasant cooperative Nonfocal neuroexam Currently on room air Urinary Catheter Management: Parnell: Cath Placed During This Visit: yes, but has since been removed by the nurse Reason for Continuing Indwelling Catheter: Decision to DC Catheter Urinary Catheter Date of Insertion: 05/27/23 Urinary Catheter Time of Insertion: 11:55 Date Urinary Catheter Removed: 05/28/23 Time Urinary Catheter Discontinued: 12:29 Discharge Data Studies Completed and Pending Completed Studies During Hospitalization Category Date Time Status CT abdomen pelvis wo con [id number] Routine Cat Scan 05/26/23 02:46 Completed DIRECTOR HR COMMUNICATIONS request for service Routine Exams 05/30/23 09:49 Completed XR chest 1V portable [id number] Routine Exams 05/27/23 09:14 Completed XR chest 1V portable [id number] Stat Exams 05/25/23 20:23 Completed CV. echo complete* [id number] Routine Ultrasound 05/26/23 02:41 Completed Pending at discharge Category Date Time Status Blood Cultures ([facility]) Routine Lab 05/27/23 10:01 Results Blood Cultures ([facility]) Routine Lab 05/27/23 11:07 Results Radiology Impressions Abdomen/Pelvis CT 05/26/23 02:46 IMPRESSION: 1. No bowel obstruction or evidence of constipation. 2. Small right effusion with right lung base atelectasis, scarring, or developing airspace disease. 3. Mild diffuse 3rd spacing of fluid. 4. Large prostate with distended bladder. 5. Full details and other chronic/incidental above. Very small left renal probable hemorrhagic cyst. Consider outpatient ultrasound. COMMENTS: Consistent with the [employer]'s Incidental Findings Committee white paper (J Am Cortes Radiol 2018): Any incidental renal lesion less than 1 cm or classified as too small to characterize, or any incidental cystic renal lesion characterized as simple-appearing, is likely benign. No follow-up imaging is recommended for these lesions per consensus recommendations based on imaging criteria. Laboratory Results WBC 10.90 10^3/uL (3.29-11.43) 05/31/23 03:47 RBC 6.21 10^6/uL (3.85-5.65) H 05/31/23 03:47 Hgb 16.90 g/dL (11.27-16.99) 05/31/23 03:47 Hct 54.7 % (37-53) H 05/31/23 03:47 MCV 88.1 fl (82-101) 05/31/23 03:47 MCH 27.2 pg (27-33) 05/31/23 03:47 MCHC 30.9 g/dL (30-55) 05/31/23 03:47 RDW 14.1 % (12.1-15.1) 05/31/23 03:47 Plt Count 339 10^3/cmm (157-399) D 05/31/23 03:47 MPV 9.6 fL (7.4-10.4) 05/31/23 03:47 Neut % (Auto) 69.1 % 05/31/23 03:47 Lymph % (Auto) 17.2 % 05/31/23 03:47 [place] % (Auto) 9.2 % 05/31/23 03:47 Eos % (Auto) 3.4 % 05/31/23 03:47 Baso % (Auto) 0.8 % 05/31/23 03:47 Neut # (Auto) 7.54 10^3/uL (1.8-7.7) 05/31/23 03:47 Lymph # (Auto) 1.9 10^3/uL (0.8-4.8) 05/31/23 03:47 [place] # (Auto) 1.0 10^3/uL (0.2-0.9) H 05/31/23 03:47 Eos # (Auto) 0.4 10^3/uL (0.0-0.8) 05/31/23 03:47 Baso # (Auto) 0.1 10^3/uL (0.0-0.1) 05/31/23 03:47 Nucleated RBC % (auto) 0 % 05/31/23 03:47 Nucleated RBCs # 0.0 /100WBC 05/31/23 03:47 PT 15.80 SECONDS (12.1-14.9) H 05/25/23 20:30 INR 1.22 (0.8-1.2) H 05/25/23 20:30 APTT 26.5 SECONDS (23.9-36.7) 05/25/23 20:30 D-Dimer 1.87 ug/mLFEU (0-0.59) H 05/25/23 20:30 Specimen Type Arterial 05/27/23 08:07 Sample Site Radial, left 05/27/23 08:07 ABG pH 7.46 (7.35-7.45) H 05/27/23 08:07 ABG pCO2 41.6 mmHg (35-45) 05/27/23 08:07 ABG pO2 89.3 mmHg (80.0-100.0) 05/27/23 08:07 ABG PO2/FiO2 Ratio 0 05/27/23 08:07 ABG HCO3 29.6 mmol/L (22-26) H 05/27/23 08:07 ABG O2 Saturation 97.5 05/27/23 08:07 ABG Base Excess 5.2 mmol/L (-2.0-2.0) H 05/27/23 08:07 [place] Test Pos 05/27/23 08:07 A-a O2 Gradient 21.4 mmHg (5-10) H 05/27/23 08:07 Hematocrit 48.0 % (42-52) 05/27/23 08:07 Hgb O2 Saturation 96.3 % (95-100) 05/27/23 08:07 Carboxyhemoglobin 1.0 %THgb (0.4-20.1) 05/27/23 08:07 Methemoglobin 0.2 % (0.4-1.5) L 05/27/23 08:07 Total Hemoglobin 15.7 g/dL (14-18) 05/27/23 08:07 Sodium 138.0 mmol/L (131-143) 05/27/23 08:07 Potassium 3.4 mmol/L (3.5-5.0) L 05/27/23 08:07 Glucose 112.0 mg/dL (70-115) 05/27/23 08:07 Ionized Calcium 1.2 mmol/L (1.1-1.4) 05/27/23 08:07 O2 Delivery Device Nc 05/27/23 08:07 O2 Liters/Min 6.0 % 05/27/23 08:07 FiO2 44.0 % 05/27/23 08:07 Public Opinion Survey Taker ID [place] 05/27/23 08:07 Sodium 142 mmol/L (136-145) 05/31/23 03:47 Potassium 4.7 mmol/L (3.5-5.1) 05/31/23 03:47 Chloride 103 mmol/L (98-107) 05/31/23 03:47 Carbon Dioxide 28 mmol/L (22-29) 05/31/23 03:47 Anion Gap 15.7 (5-19) 05/31/23 03:47 BUN 33 mg/dL (8-23) H 05/31/23 03:47 Creatinine 1.1 mg/dL (0.7-1.2) 05/31/23 03:47 GFR Calculation Not Reportable 05/31/23 03:47 Glucose 86 mg/dL (65-115) 05/31/23 03:47 Calculated Osmolality 301 mOsm/kg (285-295) H 05/31/23 03:47 Lactic Acid 0.9 mmol/L (0.5-2.2) 05/27/23 10:01 Calcium 9.7 mg/dL (8.5-10.5) 05/31/23 03:47 Magnesium 1.9 mg/dL (1.7-2.3) 05/26/23 02:20 Total Bilirubin 0.7 mg/dL (0.15-1.2) 05/27/23 03:35 AST 24 U/L (0-40) 05/27/23 03:35 ALT 17 U/L (0-41) 05/27/23 03:35 Alkaline Phosphatase 94 U/L (40-130) 05/27/23 03:35 Ammonia 81 umol/L (16-60) H 05/27/23 03:35 Troponin T Baseline 39 ng/L (0-15) H 05/25/23 20:30 Troponin T 120 Minute 30.29 ng/L (0-15) H 05/25/23 22:18 Delta Troponin T -8.71 ABS# (0-10) L 05/25/23 22:18 Troponin T Hi Sens 6Hr 35.09 ng/L (0-15) H 05/26/23 02:20 Troponin T Hi Sens 6Hr Delta -3.91 ng/L (0-12) L 05/26/23 02:20 NT-Pro-B Natriuret Pep 3144 pg/mL (0-125) H 05/25/23 20:30 Total Protein 7.3 g/dL (6.6-8.7) 05/27/23 03:35 Albumin 3.9 g/dL (3.5-5.2) 05/27/23 03:35 Globulin 3.4 g/dL (1.3-4.6) 05/27/23 03:35 TSH 0.81 uIU/mL (0.27-4.20) 05/26/23 02:20 Urine Color Yellow (Yellow) 05/27/23 11:15 Urine Appearance Clear (CLEAR) 05/27/23 11:15 Urine pH 5 (5-7) 05/27/23 11:15 Ur Specific [place] 1.020 (1.005-1.030) 05/27/23 11:15 Urine Protein 1+ (Negative) H 05/27/23 11:15 Urine Glucose (UA) Norm (Normal) 05/27/23 11:15 Urine Ketones 1+ (Negative) H 05/27/23 11:15 Urine Blood Trace (Negative) H 05/27/23 11:15 Urine Nitrate Negative (Negative) 05/27/23 11:15 Urine Bilirubin Neg (Negative) 05/27/23 11:15 Urine Urobilinogen Norm mg/dL (Negative) 05/27/23 11:15 Ur Leukocyte Esterase Negative (Negative) 05/27/23 11:15 Urine RBC 0-4 /hpf (0-2) H 05/27/23 11:15 Urine WBC 0-4 /hpf (0-5) H 05/27/23 11:15 Ur Squamous Epith Cells 0-4 /hpf (0-5) H 05/27/23 11:15 Amorphous Sediment Not Reportable 05/27/23 11:15 Urine Bacteria Trace /hpf (NONE) 05/27/23 11:15 Urine Mucus 2+ /hpf 05/27/23 11:15 Urine Opiates Screen Negative ng/mL (Negative) 05/26/23 13:40 Ur Barbiturates Screen Negative ng/mL (Negative) 05/26/23 13:40 Ur Phencyclidine Scrn Negative ng/mL (Negative) 05/26/23 13:40 Ur Amphetamines Screen Negative ng/mL (Negative) 05/26/23 13:40 U Benzodiazepines Scrn Negative ng/mL (Negative) 05/26/23 13:40 Urine Cocaine Screen Negative ng/mL (Negative) 05/26/23 13:40 U Marijuana (THC) Screen Negative ng/mL (Negative) 05/26/23 13:40 Ethyl Alcohol < 10 mg/dL (0-10) 05/26/23 02:20 Adenovirus (PCR) Not detected (NOT DETECT) 05/27/23 12:00 C. pneumoniae DNA (PCR) Not detected (NOT DETECT) 05/27/23 12:00 Coronavirus 229E (PCR) Not detected (NOT DETECT) 05/27/23 12:00 Human Metapneumovir PCR Not detected (NOT DETECT) 05/27/23 12:00 Influenza A (H1) PCR Not detected (NOT DETECT) 05/27/23 12:00 Influ A (H1/09) PCR Not detected (NOT DETECT) 05/27/23 12:00 Influenza A (H3) PCR Not detected (NOT DETECT) 05/27/23 12:00 Influenza Type A (PCR) Not detected (NOT DETECT) 05/27/23 12:00 Influenza Type B (PCR) Not detected (NOT DETECT) 05/27/23 12:00 M. pneumoniae (PCR) Not detected (NOT DETECT) 05/27/23 12:00 Parainfluenza 1 (PCR) Not detected (NOT DETECT) 05/27/23 12:00 Parainfluenza 2 (PCR) Not detected (NOT DETECT) 05/27/23 12:00 Parainfluenza 3 (PCR) Not detected (NOT DETECT) 05/27/23 12:00 Parainfluenza 4 (PCR) Not detected (NOT DETECT) 05/27/23 12:00 RSV Type A (PCR) Not detected (NOT DETECT) 05/27/23 12:00 RSV Type B (PCR) Not detected (NOT DETECT) 05/27/23 12:00 Entero/Rhino (PCR) Not detected (NOT DETECT) 05/27/23 12:00 SARS-CoV-2 (PCR) Not detected (NOT DETECT) 05/27/23 12:00 Vitals Last Vital Signs Temp 97.6 F 05/31/23 03:02 Pulse 92 05/31/23 08:14 Resp 18 05/31/23 08:08 BP 121/78 05/31/23 03:02 Pulse Ox 92 05/31/23 08:08 O2 Del Method Room Air 05/31/23 08:08 O2 Flow Rate 2 05/30/23 03:14 Discharge Plan Discharge Patient Disposition: Home Condition: Stable Prescriptions: New thiamine mononitrate (vit B1) [Vitamin B-1 (mononitrate)] 100 mg Tablet 100 mg PO DAILY Qty: 90 0RF potassium chloride [Klor-Con M20] 20 mEq Tablet,Er Particles/Crystals 40 meq PO DAILY Qty: 90 2RF losartan 50 mg Tablet 25 mg PO DAILY Qty: 90 4RF spironolactone 25 mg Tablet 25 mg PO DAILY Qty: 90 3RF hydralazine 25 mg Tablet 25 mg PO TID Qty: 90 4RF Eliquis 5 mg tablet 5 mg PO BID Qty: 120 6RF isosorbide dinitrate 10 mg tablet 5 mg PO BID Qty: 60 4RF Rx Instructions: allow nitrate-free interval of 12-14 hrs per 24-hr period metoprolol tartrate 50 mg tablet 50 mg PO Q12H Qty: 120 3RF Continued Breztri Aerosphere 160-9-4.8 mcg/actuation HFA aerosol inhaler 2 inh inhalation BID Qty: 10.7 11RF gabapentin 400 mg capsule 400 mg PO TID Qty: 300 3RF tamsulosin 0.4 mg capsule 0.4 mg PO DAILY albuterol sulfate 90 mcg/actuation HFA aerosol inhaler 2 puff inhalation Q4H PRN (Reason: Shortness Of Breath Or Wheezing) Discontinued ibuprofen 800 mg tablet 800 mg PO BID PRN (Reason: Pain) lisinopril 20 mg tablet 20 mg PO DAILY Discharge Orders: Discharge Order (Routine); Ordered 05/31/23 Ordered By: Aravind Arguelles Referrals: Margareth Franco FNP [Nurse Practitioner] - 06/13/23 2:30 am () Cynthia Hartmann NP [Primary Care Provider] - 06/06/23 9:00 am () Patient Instructions: Heart Failure (DC), Dyspnea (DC), Heart Catheterization (DC), CHF Stoplight, Opioid Safety, Post Angiogram Home Care Instructions Discharge Attestations Time Spent in Discharge Care*: greater than 30 min Quality Metrics Clinical Quality Measures [ No reported AMI, CVA or VTE this stay] Coding Level of Care Code Acute Code for Chg Fwd Diagnoses Atrial fibrillation with rapid ventricular response I48.91 Cardiomyopathy, unspecified type I42.9 Cardiomyopathy type: unspecified HTN (hypertension), benign I10 Acute on chronic systolic congestive heart failure I50.23 Heart failure type: systolic Heart failure chronicity: acute on chronic Alcohol dependence with unspecified alcohol-induced disorder F10.29 Substance use status: unspecified alcohol-induced disorder Chronic obstructive pulmonary disease, unspecified COPD type J44.9 COPD type: unspecified COPD
--- NOTE | 2023-05-31 13:02 | PC.NURSE ---
pt refused home o2 evaluation.dr cunningham notified.
--- NOTE | 2023-05-31 13:21 | PC.NURSE ---
pt agreed to wait for life vest rep...vest was fitted.discharge instructions given and explained.pt verb understanding of instructions.discharge medications provided through meds to beds program.discharged at this time via w/c to exit.friend to drive pt home
== END 2023-05-31 13:24 | disposition home or self-care (01) | DRG 286 ==
LOC: ER 23:15 → ER IP 23:37 → CSU 05-26 16:55
PROVIDERS: Internal Medicine Cardiovascular Disease; Admitting Provider Student in an Organized Health Care Education/Training Program; Emergency Provider Internal Medicine; PCP Nurse Practitioner Family; Visit Provider Internal Medicine
PROC: 4A023N7 Measurement of Cardiac Sampling and Pressure, Left Heart, Percutaneous Approach (ICD-10-PCS; principal; 2023-05-30 14:30)
DX: I11.0 Hypertensive heart disease with heart failure (principal); I50.23 Acute on chronic systolic (congestive) heart failure; I48.20 Chronic atrial fibrillation, unspecified; N13.8 Other obstructive and reflux uropathy; Z87.891 Personal history of nicotine dependence; Z79.01 Long term (current) use of anticoagulants; N52.9 Male erectile dysfunction, unspecified; M19.90 Unspecified osteoarthritis, unspecified site; J44.9 Chronic obstructive pulmonary disease, unspecified; E04.2 Nontoxic multinodular goiter; N40.1 Benign prostatic hyperplasia with lower urinary tract symptoms; G89.29 Other chronic pain; M54.9 Dorsalgia, unspecified; I25.10 Atherosclerotic heart disease of native coronary artery without angina pectoris; D72.829 Elevated white blood cell count, unspecified; R50.9 Fever, unspecified; I42.6 Alcoholic cardiomyopathy; F10.20 Alcohol dependence, uncomplicated
CPT/HCPCS: 36415; 36600; 51702; 71045; 74018; 74176; 80048; 80051; 80053; 80306; 80307; 81001; 81015; 82140; 82330; 82805; 83605; 83735; 83880; 84443; 84484; 85025; 85378; 85610; 85730; 87040; 87486; 87581; 87633; 93005; 93306; 93458; 94640; 94760; 96365; 96366; 96372; 96375; 96376; 99152; 99153; 99285; C1769; C1887; C1894; J1644; J1650; J1940; J2060; J2250; J2543; J3010; J3411; J3490; J7030; Q0163; Q9967

== ENCOUNTER 2023-07-10 09:33 | Emergency (ER) | payer MEDICARE, MEDICAID, SELFPAY ==
[2023-07-10 09:46] VITALS: BP 145/95; PULSE 98; RESP 14; TEMP 36.4; O2SAT 95
--- NOTE | 2023-07-10 09:55 | ECG_ITS ---
[facility] Test Date: 2023-07-10 Pat Name: Bernard Cavanaugh Department: Room: Gender: Male Cfo Controller: : 1950 Requested By: Gerardo Garcia Order Number: [id number] Nathalie MD: Jl Jacobs M.D. Measurements Intervals [place] Rate: 121 P: 0 MN: 0 QRS: -24 QRSD: 86 T: 101 QT: 307 QTc: 436 Interpretive Statements ATRIAL FLUTTER/TACHYCARDIA WITH RAPID VENTRICULAR RESPONSE BORDERLINE LEFT AXIS DEVIATION [QRS AXIS < -20] LEFT VENTRICULAR HYPERTROPHY AND ST-T CHANGE [VOLTAGE CRITERIA PLUS ST/T ABNORMALITY] Compared to ECG 05/26/2023 02:03:02 ST (T wave) deviation now present Atrial fibrillation no longer present T-wave abnormality no longer present Electronically Signed On 07-10-2023 20:59:11 CORNER BRACE BLOCK MACHINE OPERATOR by Jl Jacobs M.D. [email or web address]
--- NOTE | 2023-07-10 10:09 | CTR_ITS ---
PROCEDURE INFORMATION: Exam: CT Neck With Contrast Exam date and time: 07/10/2023 12:04 PM Age: 73 years old Clinical indication: Mass, lump, or swelling in neck; Right; Additional info: Right facial mass, parotid gland area swelling TECHNIQUE: Imaging protocol: Computed tomography of the neck with contrast. Radiation optimization: All CT scans at this facility use at least one of these dose optimization techniques: automated exposure control; mA and/or kV adjustment per patient size (includes targeted exams where dose is matched to clinical indication); or iterative reconstruction. Contrast material: OMNI 350; Contrast volume: 80 ml; Contrast route: INTRAVENOUS (IV); COMPARISON: CT neck w con* [id number] 05/27/2021 11:53 AM RADIATION DOSE METRICS: Total DLP (mGy-cm): 298.41 FINDINGS: Pharynx: Unremarkable. No significant tonsillar enlargement. Larynx: Unremarkable. Epiglottis is normal. Prevertebral and retropharyngeal spaces: Unremarkable. Salivary glands: There is abnormal inflammation and hyperemia involving the right parotid gland. There is surrounding soft tissue swelling but I see no abscess. No salivary stones are noted. Thyroid: Normal. No enlarged or calcified nodules. Lymph nodes: Unremarkable. No lymphadenopathy. Trachea: Visualized trachea is unremarkable. Lungs: Unremarkable as visualized. Bones/joints: Unremarkable. No acute fracture. Soft tissues: See Salivary glands finding. CT/CT neck w con* [id number] IMPRESSION: Acute sialoadenitis of the right parotid gland
--- NOTE | 2023-07-10 10:09 | ED_ITS ---
HPI - General Adult 2 General: Chief complaint: General Medical Stated complaint: Right side face pain Time Seen by Provider: 07/10/23 09:40 History of Present Illness: Patient presents to the ER with complaints of right-sided facial swelling in his parotid gland area. Patient says it he had a little bit of swelling there last night he woke up this morning and now it large and very tender when he pushes on it. Patient denies any fever chills coughs colds sore throats. Patient says he has had this before on the other side but it took many days to get big and then it went away on its own. Review of Systems 2 General: Reports: 10 or more systems reviewed and unremarkable except in HPI and below PFSH ED 2 PFSH: Medical History COPD (chronic obstructive pulmonary disease) Non-ischemic cardiomyopathy HTN (hypertension), benign Cardiomyopathy Alcohol dependence CHF (congestive heart failure) Acute dyspnea Atrial fibrillation with rapid ventricular response Irregular heart rate Abdominal distension Wheezing Shortness of breath Multiple thyroid nodules Systolic blood pressure greater than or equal to 140 mm Hg BPH loc w urin obs/LUTS Urinary hesitancy Urinary frequency Erectile dysfunction due to diseases classified elsewhere Arthritis Surgical History S/P tonsillectomy S/P appendectomy Status post colonoscopy (04/01/20) Family History Mother , at age 52 Cancer Breast Father , at age 82 No problems noted. Social History Smoking and tobacco/nicotine status: former use of tobacco/nicotine Alcohol intake: current Alcohol intake frequency: few times a week Substance/Drug Use: current Substance/Drug use frequency: few times a week Adopted: No Caregiver/support person: No Lives independently: Yes Marital status: Current occupational status: employed Current occupation: [email or web address] Physical Exam 2 Const: COMMON NORMALS: no acute distress, average body habitus, patient oriented x3, no limitations, healthy appearing, alert and well nourished HENMT: COMMON NORMALS: normocephalic, atraumatic, hearing grossly normal bilaterally, Normal external nose present and oropharynx normal; external ears not normal (Large area of swelling in the right parotid gland area) HEAD & SCALP: normocephalic and atraumatic NOSE: Normal external nose present EXTERNAL EAR: no external ears normal (Large area of swelling in the right parotid gland area) Neck/C-Spine: COMMON NORMALS: full ROM, no lymphadenopathy, supple, no meningeal signs, no JVD and Thyroid normal THYROID: Thyroid normal Chest: COMMONS NORMALS: normal inspection of the chest and normal palpation of entire chest wall Resp: COMMON NORMALS: normal respiratory effort, No retractions, No use of accessory muscles and clear to auscultation bilaterally AUSCULTATION: clear to auscultation bilaterally Cardio: COMMON NORMALS: no JVD, S1 normal heart sound present, S2 normal heart sound present, No gallops present (Cardio), No clicks present (Cardio), No murmurs present (Cardio) and No rub (Cardio); negative for regular rhythm (Irregularly irregular) RHYTHM: abnormal rhythm (Irregularly irregular) HEART SOUNDS: S1 normal heart sound present and S2 normal heart sound present GI: COMMON NORMALS: Normal to inspection, nondistended, normoactive bowel sounds present, Soft to palpation, non-tender, No hepatosplenomegaly present and no masses PALPATION: Yes Soft to palpation and Yes No hepatosplenomegaly present Neuro: COMMON NORMALS: patient oriented x3 SENSORIUM/ORIENTATION: Yes alert MENINGEAL SIGNS: Yes no meningeal signs Course 2 Vital Signs: Vital signs: Vital Signs Temperature 97.6 F 07/10/23 09:46 Pulse Rate 98 07/10/23 09:46 Respiratory Rate 14 07/10/23 09:46 Blood Pressure 145/95 07/10/23 09:46 Pulse Oximetry 95 07/10/23 09:46 Oxygen Delivery Me thod Room Air 07/10/23 09:46 [facility] - General Adult Medical Decision Making Patient is physical exam performed and lab work. Contrasted CT of the head and neck. Lab work was essentially unremarkable. Head and neck CT showed acute sialoadenitis of the right parotid gland. This was discussed with the patient patient be placed on antibiotic. Patient should follow-up with his primary care doctor within next week for further evaluation and treatment. Differential Diagnosis Mandibular gland swelling, parotid gland swelling, mass, abscess Medical Records I reviewed the patient's medical records. Lab Data I reviewed the patient's lab results. 07/10/23 11:21 07/10/23 11:[address] 07/10/23 10:09 IMPRESSION: Acute sialoadenitis of the right parotid gland Laboratory Results WBC 8.36 10^3/uL (3.29-11.43) 07/10/23 11:21 RBC 5.94 10^6/uL (3.85-5.65) H 07/10/23 11:21 Hgb 16.20 g/dL (11.27-16.99) 07/10/23 11:21 Hct 49.9 % (37-53) 07/10/23 11:21 MCV 84.0 fl (82-101) 07/10/23 11:21 MCH 27.3 pg (27-33) 07/10/23 11:21 MCHC 32.5 g/dL (30-55) 07/10/23 11:21 RDW 15.1 % (12.1-15.1) 07/10/23 11:21 Plt Count 262 10^3/cmm (157-399) 07/10/23 11:21 MPV 8.9 fL (7.4-10.4) 07/10/23 11:21 Neut % (Auto) 79.1 % 07/10/23 11:21 Lymph % (Auto) 12.6 % 07/10/23 11:21 [place] % (Auto) 7.5 % 07/10/23 11:21 Eos % (Auto) 0.2 % 07/10/23 11:21 Baso % (Auto) 0.1 % 07/10/23 11:21 Neut # (Auto) 6.61 10^3/uL (1.8-7.7) 07/10/23 11:21 Lymph # (Auto) 1.1 10^3/uL (0.8-4.8) 07/10/23 11:21 Dade # (Auto) 0.6 10^3/uL (0.2-0.9) 07/10/23 11:21 Eos # (Auto) 0.0 10^3/uL (0.0-0.8) 07/10/23 11:21 Baso # (Auto) 0.0 10^3/uL (0.0-0.1) 07/10/23 11:21 Nucleated RBC % (auto) 0 % 07/10/23 11:21 Nucleated RBCs # 0.0 /100WBC 07/10/23 11:21 Sodium 137 mmol/L (136-145) 07/10/23 11:21 Potassium 3.8 mmol/L (3.5-5.1) 07/10/23 11:21 Chloride 99 mmol/L (98-107) 07/10/23 11:21 Carbon Dioxide 26 mmol/L (22-29) 07/10/23 11:21 Anion Gap 15.8 (5-19) 07/10/23 11:21 BUN 21 mg/dL (8-23) 07/10/23 11:21 Creatinine 0.9 mg/dL (0.7-1.2) 07/10/23 11:21 GFR Calculation Not Reportable 07/10/23 11:21 Glucose 98 mg/dL (65-115) 07/10/23 11:21 Calculated Osmolality 287 mOsm/kg (285-295) 07/10/23 11:21 Calcium 8.9 mg/dL (8.5-10.5) 07/10/23 11:21 Total Bilirubin 0.6 mg/dL (0.15-1.2) 07/10/23 11:21 AST 25 U/L (0-40) 07/10/23 11:21 ALT 38 U/L (0-41) 07/10/23 11:21 Alkaline Phosphatase 95 U/L (40-130) 07/10/23 11:21 Troponin T Baseline 12 ng/L (0-15) 07/10/23 11:21 Total Protein 7.5 g/dL (6.6-8.7) 07/10/23 11:21 Albumin 4.1 g/dL (3.5-5.2) 07/10/23 11:21 Globulin 3.4 g/dL (1.3-4.6) 07/10/23 11:21 All radiology interpretation(s) finalized by discharge EKG Data EKG 1: I personally reviewed and interpreted this EKG as follows: EKG interpretation date: 07/10/23 EKG interpretation time: 10:14 Prior EKG tracings: available for review Interpretation: Ventricular rate 121 bpm, QRS duration 86, QTc 379, atrial flutter/tachycardia with RVR, Computer generated interpretation: Neck CT 07/10/23 10:09 IMPRESSION: Acute sialoadenitis of the right parotid gland Discharge Plan Discharge Patient Disposition: Home Clinical Impression: Acute sialoadenitis Condition: Stable Prescriptions: New cephalexin 500 mg capsule 500 mg PO Q6H 7 Days Qty: 28 0RF No Action tamsulosin 0.4 mg capsule 0.4 mg PO DAILY Qty: 90 3RF Breztri Aerosphere 160-9-4.8 mcg/actuation HFA aerosol inhaler 2 inh inhalation BID Qty: 10.7 11RF prednisone 20 mg tablet 40 mg PO DAILY 5 Days Qty: 10 0RF gabapentin 400 mg capsule 400 mg PO TID albuterol sulfate 90 mcg/actuation HFA aerosol inhaler 2 puff inhalation Q4H PRN (Reason: Shortness Of Breath Or Wheezing) losartan 50 mg Tablet 25 mg PO DAILY Qty: 90 4RF hydralazine 25 mg Tablet 25 mg PO TID Qty: 90 4RF spironolactone 25 mg Tablet 25 mg PO DAILY Qty: 90 3RF potassium chloride [Klor-Con M20] 20 mEq Tablet,Er Particles/Crystals 40 meq PO DAILY Qty: 90 2RF thiamine mononitrate (vit B1) [Vitamin B-1 (mononitrate)] 100 mg Tablet 100 mg PO DAILY Qty: 90 0RF metoprolol tartrate 50 mg tablet 50 mg PO Q12H Qty: 120 3RF Eliquis 5 mg tablet 5 mg PO BID Qty: 120 6RF isosorbide dinitrate 10 mg tablet 5 mg PO BID Qty: 60 4RF Discharge Orders: Discharge ED (Routine); Ordered 07/10/23 Ordered By: Arcadio Mata Referrals: Cynthia Hartmann NP [Primary Care Provider] - 1 week Patient Instructions: Sialoadenitis (ED) Activity Restrictions/Additional Instructions: Your evaluation in ER showed you have an infection in your parotid gland and this is causing the swelling on the right side of your face. You will be prescribed an antibiotic that should take care of this infection. Please follow-up with your family practice physician within the next 7 days for further evaluation and treatment. Coding Level of Care Code ED Supervisor [employer] for Julian Tello
--- NOTE | 2023-07-10 10:50 | PC.NURSE ---
Attempted to place patient on clinical research monitor and the patient refused to let me hook him up. Patient stated I don't want to be connected to any machines.
[2023-07-10 11:28] LABS: Basophils % 0.1 %; Eosinophils % 0.2 %; Hematocrit 49.9 % (37-53); Lymphocytes # 1.1 10^3/uL (0.8-4.8); Lymphocytes % 12.6 %; Mean Corpuscular HGB Conc 32.5 g/dL (30-55); Mean Corpuscular Hemoglobin 27.3 pg (27-33); Mean Platelet Volume 8.9 fL (7.4-10.4); Monocytes # 0.6 10^3/uL (0.2-0.9); Monocytes % 7.5 %; Neutrophils # 6.61 10^3/uL (1.8-7.7); Neutrophils % 79.1 %; Nucleated Red Blood Cells % 0 %; Platelet Count 262 10^3/cmm (157-399); Red Blood Count 5.94 10^6/uL (3.85-5.65); Red Cell Distribution Width 15.1 % (12.1-15.1); White Blood Count 8.36 10^3/uL (3.29-11.43)
[2023-07-10 11:44] LABS: Troponin(5th) Baseline 12 ng/L (0-15)
[2023-07-10 11:47] LABS: Alanine Aminotransferase 38 U/L (0-41); Albumin Level 4.1 g/dL (3.5-5.2); Alkaline Phosphatase 95 U/L (40-130); Anion Gap 15.8 (5-19); Aspartate Amino Transferase 25 U/L (0-40); Blood Urea Nitrogen 21 mg/dL (8-23); Calcium 8.9 mg/dL (8.5-10.5); Carbon Dioxide 26 mmol/L (22-29); Chloride 99 mmol/L (98-107); Globulin 3.4 g/dL (1.3-4.6); Glucose 98 mg/dL (65-115); Osmolality Calculated 287 mOsm/kg (285-295); Potassium 3.8 mmol/L (3.5-5.1); Sodium 137 mmol/L (136-145); Total Bilirubin 0.6 mg/dL (0.15-1.2); Total Protein 7.5 g/dL (6.6-8.7)
--- NOTE | 2023-07-10 11:57 | ECG_ITS ---
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 Measurements Intervals [place]st Rate: 121 P: 0 WA: 0 QRS: -29 QRSD: 88 T: 126 QT: 301 QTc: 427 Interpretive Statements ATRIAL FIBRILLATION WITH RAPID VENTRICULAR RESPONSE BORDERLINE LEFT AXIS DEVIATION [QRS AXIS < -20] VOLTAGE CRITERIA FOR LVH [MEETS CRITERIA IN ONE OF: R(aVL), S(V1), R(V5), R(V5/V6)+S(V1)] NONSPECIFIC ST & T-WAVE ABNORMALITY Compared to ECG 07/10/2023 10:14:12 T-wave abnormality now present Atrial flutter no longer present ST (T wave) deviation no longer present Electronically Signed On 07-10-2023 21:03:48 [employer] by Jl Jacobs M.D. [id number]
[2023-07-10] MEDS: iohexol 350 mg/mL 500 mL Btl (per mL) IV (12:20)
== END 2023-07-10 13:06 | disposition home or self-care (01) ==
PROVIDERS: Family Medicine; Emergency Provider Emergency Medicine; PCP Nurse Practitioner Family
DX: K11.21 Acute sialoadenitis (principal); Z79.01 Long term (current) use of anticoagulants; Z87.891 Personal history of nicotine dependence; J44.9 Chronic obstructive pulmonary disease, unspecified; I11.0 Hypertensive heart disease with heart failure; I50.9 Heart failure, unspecified; I43 Cardiomyopathy in diseases classified elsewhere
CPT/HCPCS: 70491; 80053; 84484; 85025; 93005; 99285; Q9967

== ENCOUNTER → 2023-12-07 08:21 | Outpatient (BNVA) | payer MEDICARE, MEDICAID, SELFPAY | PROVIDERS: PCP Nurse Practitioner Family; Visit Provider Podiatrist Foot & Ankle Surgery | DX: G57.62 Lesion of plantar nerve, left lower limb (principal); L23.7 Allergic contact dermatitis due to plants, except food | CPT/HCPCS: 99213 ==

== ENCOUNTER → 2024-01-04 14:00 | Outpatient (BNVA) | payer MEDICARE, MEDICAID, SELFPAY | PROVIDERS: PCP Nurse Practitioner Family; Visit Provider Family Medicine | DX: Z12.5 Encounter for screening for malignant neoplasm of prostate (principal); I10 Essential (primary) hypertension; J44.9 Chronic obstructive pulmonary disease, unspecified; I48.91 Unspecified atrial fibrillation; R21 Rash and other nonspecific skin eruption | CPT/HCPCS: 80053; 80061; 84443; 85025; 86038; 86431; G0103 ==

== ENCOUNTER → 2024-01-18 10:15 | Outpatient (BNVA) | payer MEDICARE, MEDICAID, SELFPAY | PROVIDERS: PCP Nurse Practitioner Family; Visit Provider Podiatrist Foot & Ankle Surgery | DX: G57.62 Lesion of plantar nerve, left lower limb (principal); L23.7 Allergic contact dermatitis due to plants, except food | CPT/HCPCS: 99213 ==

== ENCOUNTER 2024-04-23 06:00 | Outpatient (RCR) | payer MEDICARE, MEDICAID, SELFPAY | END 2024-05-15 23:59 | disposition home or self-care (01) | LOC: GPT 06:00 | PROVIDERS: Visit Provider Physician Assistant | DX: Z98.890 Other specified postprocedural states (principal) | CPT/HCPCS: 97110; 97140; 97161 ==

== ENCOUNTER 2024-05-16 06:00 | Outpatient (RCR) | payer MEDICARE, MEDICAID, SELFPAY | END 2024-06-15 23:59 | disposition home or self-care (01) | LOC: GPT 06:00 | PROVIDERS: Visit Provider Physician Assistant | DX: Z98.890 Other specified postprocedural states (principal) | CPT/HCPCS: 97110; 97112; 97140; 97164; 97530 ==

== ENCOUNTER 2024-06-16 06:00 | Outpatient (RCR) | payer MEDICARE, MEDICAID, SELFPAY | END 2024-07-13 23:59 | disposition home or self-care (01) | LOC: GPT 06:00 | PROVIDERS: Visit Provider Physician Assistant | DX: Z98.890 Other specified postprocedural states (principal) | CPT/HCPCS: 97110; 97140; 97164; 97530 ==

== ENCOUNTER 2024-07-14 06:00 | Outpatient (RCR) | payer MEDICARE, MEDICAID, SELFPAY | END 2024-08-13 23:59 | disposition home or self-care (01) | LOC: GPT 06:00 | PROVIDERS: PCP Family Medicine; Visit Provider Physician Assistant | DX: Z98.890 Other specified postprocedural states (principal) | CPT/HCPCS: 97110; 97140; 97164 ==

== ENCOUNTER → 2024-07-30 13:00 | Outpatient (BNVA) | payer MEDICARE, MEDICAID, SELFPAY | PROVIDERS: PCP Family Medicine; Visit Provider Family Medicine | DX: Z12.5 Encounter for screening for malignant neoplasm of prostate (principal); Z87.891 Personal history of nicotine dependence; I10 Essential (primary) hypertension | CPT/HCPCS: 80053; 80061; G0103 ==

== ENCOUNTER 2024-08-14 06:00 | Outpatient (RCR) | payer MEDICARE, MEDICAID, SELFPAY | END 2024-09-12 23:59 | disposition home or self-care (01) | LOC: GPT 06:00 | PROVIDERS: PCP Family Medicine; Visit Provider Physician Assistant | DX: Z98.890 Other specified postprocedural states (principal) | CPT/HCPCS: 97110; 97164; 97535 ==

== ENCOUNTER → 2024-09-11 13:46 | Outpatient (BNVA) | payer MEDICARE, MEDICAID, SELFPAY | PROVIDERS: PCP Family Medicine; Visit Provider Dermatology | DX: L85.3 Xerosis cutis (principal); L57.0 Actinic keratosis; Z85.828 Personal history of other malignant neoplasm of skin; L08.9 Local infection of the skin and subcutaneous tissue, unspecified | CPT/HCPCS: 11104; 99203 ==

== ENCOUNTER 2024-09-13 05:00 | Outpatient (RCR) | payer MEDICARE, MEDICAID, SELFPAY | END 2024-10-13 23:59 | disposition home or self-care (01) | LOC: GPT 05:00 | PROVIDERS: PCP Family Medicine; Visit Provider Physician Assistant | DX: Z98.890 Other specified postprocedural states (principal) | CPT/HCPCS: 97110 ==

== ENCOUNTER → 2024-09-19 13:25 | Outpatient (BNVA) | payer MEDICARE, MEDICAID, SELFPAY | PROVIDERS: PCP Family Medicine; Referring Provider Student in an Organized Health Care Education/Training Program; Visit Provider Family Medicine | DX: I50.22 Chronic systolic (congestive) heart failure (principal) | CPT/HCPCS: 80048 ==

== ENCOUNTER → 2024-09-24 13:32 | Outpatient (BNVA) | payer MEDICARE, MEDICAID, SELFPAY | PROVIDERS: PCP Family Medicine; Visit Provider Internal Medicine Cardiovascular Disease | DX: I48.91 Unspecified atrial fibrillation (principal) | CPT/HCPCS: 93005 ==

== ENCOUNTER → 2024-11-06 13:16 | Outpatient (BNVA) | payer MEDICARE, MEDICAID, SELFPAY | PROVIDERS: PCP Family Medicine; Visit Provider Dermatology | DX: L82.1 Other seborrheic keratosis (principal); L57.8 Other skin changes due to chronic exposure to nonionizing radiation; Z85.828 Personal history of other malignant neoplasm of skin; D48.5 Neoplasm of uncertain behavior of skin; L57.0 Actinic keratosis | CPT/HCPCS: 11102; 17000; 99213 ==

== ENCOUNTER 2024-12-05 10:48 | Outpatient (CLI) | payer MEDICARE, MEDICAID, SELFPAY ==
--- NOTE | 2024-12-05 11:00 | MR_ITS ---
WS: [id number] MRI HEAD WITHOUT CONTRAST TECHNIQUE: Sagittal T1, T2 axial, T2 axial FLAIR, axial and coronal T1 images, axial susceptibility weighted imaging, axial diffusion weighted images, and coronal T2 images were obtained. CLINICAL INFORMATION: R53.1 - Weakness COMPARISON: None. FINDINGS: No evidence of restricted diffusion to suggest acute ischemia. Ventricular system and basilar cisterns are patent. Mild small vessel changes. Mild to moderate parenchymal volume loss. Normal posterior fossa. Normal vascular flow voids at the skull base. No extra-axial fluid collections. No evidence of mass or mass effect. Paranasal sinuses and mastoid air cells are well aerated. No hemosiderin on the susceptibly weighted images. Normal optic chiasm and pituitary infundibulum. Temporal lobes and hippocampal formations are normal in appearance. No other suspicious findings. MR/MR head wo con* [id number] IMPRESSION: 1. No evidence of restricted diffusion to suggest acute ischemia. 2. Mild small vessel changes with mild to moderate parenchymal volume loss. 3. No hemosiderin on the susceptibility weighted images. 4. No other suspicious findings.
== END 2024-12-05 10:49 | disposition home or self-care (01) ==
LOC: RAD 10:50
PROVIDERS: PCP Family Medicine; Visit Provider Nurse Practitioner Family
DX: R53.1 Weakness (principal); R47.1 Dysarthria and anarthria; M79.602 Pain in left arm
CPT/HCPCS: 70551

== ENCOUNTER → 2024-12-11 08:18 | Outpatient (BNVA) | payer MEDICARE, MEDICAID, SELFPAY | PROVIDERS: PCP Family Medicine; Visit Provider Podiatrist Foot & Ankle Surgery | DX: M79.672 Pain in left foot (principal); G57.62 Lesion of plantar nerve, left lower limb | CPT/HCPCS: 64455; 73630; 99213; J1100; J3301; J3490 ==

== ENCOUNTER 2025-02-06 10:52 | Outpatient (CLI) | payer MEDICARE, MEDICAID, SELFPAY ==
--- NOTE | 2025-02-06 10:45 | CT_ITS ---
WS: [id number] LDCT LUNG CANCER SCREENING TECHNIQUE: Noncontrast CT of the chest with coronal and sagittal reformatted images. CLINICAL INFORMATION: Z87.891 - Personal history of nicotine dependence COMPARISON: None. DLP: 121.71 mGy.cm DIvol: Mean CTDIvol: 3.00 (mGy) All CT scans at [facility] use at least one of these dose optimization techniques: automated exposure control; mA and/or kV adjustment per patient size (includes targeted exams where dose is matched to clinical indication); or iterative reconstruction. FINDINGS: Mild chronic emphysematous changes. Calcified granulomas. Pleural plaques along the diaphragm. No suspicious pulmonary parenchymal abnormalities. A few tiny micronodules about the LEFT hilum Normal caliber thoracic aorta. Aortic calcification. Coronary calcification. No mediastinal or hilar lymphadenopathy. No axillary lymphadenopathy. Normal GE junction. Adrenal glands are normal. Mild thoracic kyphosis. Moderate spondylitic changes. Degenerative disc disease worse in the midthoracic spine with endplate sclerosis. CT/CT lung screening [id number] IMPRESSION: LUNG-RADS: 2-Benign Appearance or Behavior FOLLOW UP: 12 Month: Continue annual screening with LDCT
== END 2025-02-06 10:53 | disposition home or self-care (01) ==
LOC: RAD 10:54
PROVIDERS: PCP Nurse Practitioner Family; Visit Provider Nurse Practitioner Family
DX: Z12.2 Encounter for screening for malignant neoplasm of respiratory organs (principal); Z87.891 Personal history of nicotine dependence; J43.9 Emphysema, unspecified; J84.10 Pulmonary fibrosis, unspecified; J92.9 Pleural plaque without asbestos; M40.204 Unspecified kyphosis, thoracic region; M51.34 Other intervertebral disc degeneration, thoracic region
CPT/HCPCS: 71271

== ENCOUNTER → 2025-02-12 09:27 | Outpatient (BNVA) | payer MEDICARE, MEDICAID, SELFPAY | PROVIDERS: PCP Nurse Practitioner Family; Visit Provider Podiatrist Foot & Ankle Surgery | DX: M79.672 Pain in left foot (principal); G57.62 Lesion of plantar nerve, left lower limb | CPT/HCPCS: 73630; 99213 ==

== ENCOUNTER → 2025-02-18 09:07 | Outpatient (BNVA) | payer OTHER, MEDICAID, SELFPAY | PROVIDERS: PCP Nurse Practitioner Family; Visit Provider Podiatrist Foot & Ankle Surgery | DX: E11.69 Type 2 diabetes mellitus with other specified complication (principal); L60.3 Nail dystrophy; E11.8 Type 2 diabetes mellitus with unspecified complications; I73.9 Peripheral vascular disease, unspecified; Z79.84 Long term (current) use of oral hypoglycemic drugs | CPT/HCPCS: 11721 ==

== ENCOUNTER → 2025-02-25 12:24 | Outpatient (BNVA) | payer OTHER, MEDICAID, SELFPAY | PROVIDERS: PCP Nurse Practitioner Family; Visit Provider Dermatology | DX: D04.62 Carcinoma in situ of skin of left upper limb, including shoulder (principal); L57.8 Other skin changes due to chronic exposure to nonionizing radiation; L82.1 Other seborrheic keratosis; B35.8 Other dermatophytoses; Z85.828 Personal history of other malignant neoplasm of skin | CPT/HCPCS: 11102; 17000; 99214 ==

== ENCOUNTER → 2025-03-25 10:00 | Outpatient (BNVA) | payer OTHER, MEDICAID, SELFPAY | PROVIDERS: PCP Nurse Practitioner Family; Visit Provider Nurse Practitioner Family | DX: I10 Essential (primary) hypertension (principal); E11.69 Type 2 diabetes mellitus with other specified complication; Z12.5 Encounter for screening for malignant neoplasm of prostate; N40.0 Benign prostatic hyperplasia without lower urinary tract symptoms | CPT/HCPCS: 80053; 80061; 83036; 83735; G0103 ==